=== PATIENT | female | born 1960 | race Caucasian/White ===

== ENCOUNTER 2021-04-14 13:20 | Emergency (ER) | payer MEDICAID, SELFPAY ==
[2021-04-14] VITALS (9 sets, daily range): BP systolic 117–152; BP diastolic 77–95; PULSE 74–82; RESP 16–20; TEMP 36.9; O2SAT 91–97; BMI 50.1
--- NOTE | 2021-04-14 14:09 | XRR_ITS ---
PROCEDURE INFORMATION: Exam: XR Chest Exam date and time: 04/14/2021 2:09 PM Age: 61 years old Clinical indication: Dyspnea TECHNIQUE: Imaging protocol: XR of the chest. Views: 1 view. COMPARISON: No relevant prior studies available. FINDINGS: Lungs: The lungs are hyperinflated, consistent with COPD. Mild pulmonary venous congestion demonstrated. No pulmonary infiltrates are noted. Pleural spaces: No pleural effusion or pneumothorax noted. Heart/Mediastinum: Cardiomegaly is present. Vasculature: Mild atherosclerosis of the aortic arch. Bones/joints: Mild degenerative spine changes. No acute abnormality. XR/XR chest 1V portable [id number] IMPRESSION: 1. Cardiomegaly is present. 2. The lungs are hyperinflated, consistent with COPD. 3. Mild pulmonary venous congestion demonstrated. No pulmonary infiltrates are noted.
--- NOTE | 2021-04-14 14:11 | ECG_ITS ---
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
--- NOTE | 2021-04-14 14:12 | ED_ITS ---
HPI - Wound/Laceration General: Chief Complaint: Wound/Laceration Stated Complaint: SWELLING IN RIGHT SIDE Time Seen by Provider: 04/14/21 13:54 Source: patient and family (Daughter) Mode of arrival: ambulatory Limitations: no limitations History of Present Illness: HPI narrative: Patient here for swelling and rash to right upper extremity and right breast. Patient also with complaints of shortness of breath. She states she has COPD. She does not use oxygen at home. She does smoke cigarettes. She was started on Levaquin yesterday at 500 mg tablet for suspected urinary tract infection. Family states urinalysis was not done at the clinic yesterday. No assessment of the rash was done. Patient has possible history of COPD, insomnia, tobacco use. Onset (ago): day(s) (1) Location: other (Right upper extremity including distal upper arm and entire posterior forearm.) Associated symptoms: Reports other (Shortness of breath); Denies chills, fever(s), nausea or vomiting Review of Systems Const: Denies: fever(s) or chills Eyes: Denies: change in vision ENMT: Denies: throat pain Card: Denies: chest pain or palpitations Resp: Reports: dyspnea, non-productive cough and wheezing GI: Denies: abdominal pain, nausea or vomiting : Denies: flank pain Musc: Denies: neck pain or back pain Skin/Breast: Reports: rash, erythema and other (Rash appears to be early zoster to right forearm. No rash to the breast); Denies: pruritus Neuro: Denies: headache(s) or numbness in extremities Psych: Denies: anxiety Sam/Lymph: Denies: enlarged lymph nodes Physical Exam Const: COMMON NORMALS: patient oriented x3, no limitations and well nourished GENERAL APPEARANCE: cooperative (Mild respiratory distress.) HENMT: COMMON NORMALS: normocephalic and atraumatic HEAD & SCALP: normocephalic and atraumatic FACE & SINUS: normal facial exam Eye: COMMON NORMALS: EOMs intact bilaterally Neck/C-Spine: COMMON NORMALS: full ROM, no lymphadenopathy, supple and no meningeal signs GENERAL: Yes normal visual inspection Lymph: LYMPHATIC: no lymphadenopathy noted OTHER: Palpable lymphadenopathy in the right axilla. No lymphadenopathy in the neck palpable Chest: CHEST: No Ecchymosis present and No rash Breast/axilla inspection: Yes Other (Mild soft tissue swelling of the right breast. No palpable masses.no rash) OTHER: No dimpling of the nipples. Resp: COMMON NORMALS: No retractions and clear to auscultation bilaterally EFFORT & INSPECTION: Yes respiratory distress (Mild), No grunting, No stridor and Yes audible wheezes (Bilateral wheezes consistent with bronchospasm) AUSCULTATION: clear to auscultation bilaterally Cardio: COMMON NORMALS: regular rate, regular rhythm and Peripheral pulses 2+ throughout JUGULAR VENOUS DISTENTION: no JVD RATE: regular rate RHYTHM: regular rhythm PERIPHERAL PULSES: Peripheral pulses 2+ throughout GI: COMMON NORMALS: Normal to inspection, nondistended, normoactive bowel sounds present (Morbid obesity) and non-tender : COMMON NORMALS: Yes no CVA tenderness BLADDER/KIDNEY EXAM: Yes no CVA tenderness Back/Pelvis: COMMON NORMALS: no CVA tenderness Extremity: COMMON NORMALS: normal to inspection, full ROM and capillary refill normal Neuro: COMMON NORMALS: patient oriented x3, CN's II-XII intact bilaterally, no focal motor deficits and no sensory deficits noted MENINGEAL SIGNS: Yes no meningeal signs Psych: COMMON NORMALS: mental status grossly normal and Normal thought process present THOUGHT PROCESS: Normal thought process present Skin: COMMON NORMALS: no wounds NARRATIVE SKIN EXAM: Patient has vesicular rash to right forearm consistent with zoster. Course ED course: 162: Patient reexamined. Lungs sound better but patient does have occasional expiratory wheeze. Less crackles. Oxygen saturation is 90% on 2 L by nasal cannula. Oxygen rate was increased to 3 L/min nasal cannula. Patient will receive another DuoNeb. Vital Signs: Vital signs: Vital Signs Temperature 98.5 F 04/14/21 13:29 Pulse Rate 80 04/14/21 17:13 Respiratory Rate 16 04/14/21 17:13 Blood Pressure 117/77 04/14/21 17:13 Pulse Oximetry 96 04/14/21 17:13 MDM - Wound/Laceration MDM Narrative: Medical decision making narrative: [id number]: Patient reexamined. Patient still has slight wheezing. She sounds like she does have some crackles bilaterally. Will give IV Lasix. Patient states her respiratory status is better after DuoNeb. 1636: Telemetry shows normal sinus rhythm heart rate 75, blood pressure 140s over 91, oxygen saturation 97% on 3 L/min by nasal cannula. Respiratory rate 20 breaths/min 1745: Patient feeling much better now. Patient without any respiratory distress. No tachypnea. She is still on oxygen. I recommended that she be admitted for further care of her COPD and mild congestive heart failure. Adamantly refused admission and wants to go home. She does have access to a nebulizer and home oxygen from a family member. She agrees to return if worse. She will continue the Levaquin antibiotic. Lab Data: Attestation: I reviewed the patient's lab results. Labs: Lab Results 04/14/21 04/14/21 04/14/21 Range/Units 14:43 14:43 14:43 WBC 7.1 (4.0-10.0) 10^3/ uL RBC 4.54 (4.1-5.3) 10^6/u L Hgb 12.9 (11.5-15.3) g/dL Hct 44.0 (37.0-47.0) % MCV 96.9 (81-99) fL MCH 28.4 (28.0-34.0) pg MCHC 29.3 L (30.0-36.0) g/dL RDW 17.7 H (12.1-15.1) % Plt Count 109 L (130-400) 10^3/c mm MPV 11.3 H (7.4-10.4) fL Neut % (Auto) 72.6 % Lymph % (Auto) 12.4 % [place] % (Auto) 13.6 % Eos % (Auto) 0.4 % Baso % (Auto) 0.3 % Neut # (Auto) 5.16 (1.8-7.7) 10^3/u L Lymph # (Auto) 0.9 (0.8-4.8) 10^3/u L [place] # (Auto) 1.0 H (0.2-0.9) 10^3/u L Eos # (Auto) 0.0 (0.0-0.8) 10^3/u L Baso # (Auto) 0.0 (0.0-0.1) 10^3/u L Nucleated RBC % (a uto) 0 % Nucleated RBCs # 0.0 /100WBC Sodium 137 (136-145) mmol/L Potassium 3.8 (3.5-5.1) mmol/L Chloride 93 L (98-107) mmol/L Carbon Dioxide 39 H (22-29) mmol/L Anion Gap 8.8 (5-19) BUN 26 H (8-23) mg/dL Creatinine 1.3 H (0.5-0.9) mg/dL GFR Calculation 41.5 L (90-130) mL/min Glucose 65 (65-115) mg/dL Calculated Osmolal ity 287 (285-295) mOsm/k g Lactate 1.4 (0.5-2.2) mmol/L Calcium 8.4 L (8.5-10.5) mg/dL Total Bilirubin 2.7 H (0.15-1.2) mg/dL AST 18 (0-32) U/L ALT 38 H (0-33) U/L Alkaline Phosphata se 98 (35-105) IU/L Troponin T Gen 5 n g/L (0-10) ng/L NT-Pro-B Natriuret Pep (0-125) pg/mL Total Protein 6.5 L (6.6-8.7) g/dL Albumin 3.3 L (3.5-5.2) g/dL Globulin 3.2 (1.3-4.6) g/dL Urine Color (Yellow) Urine Appearance (CLEAR) Urine pH (5-7) Ur Specific Gravit y (1.005-1.030) Urine Protein (Negative) Urine Glucose (UA) (Normal) Urine Ketones (Negative) Urine Blood (Negative) Urine Nitrate (Negative) Urine Bilirubin (Negative) Urine Urobilinogen (Negative) mg/dL Ur Leukocyte Rima ase (Negative) SARS-CoV-2 Ag (Rap id) (Negative) 04/14/21 04/14/21 04/14/21 Range/Units 14:43 14:43 14:52 WBC (4.0-10.0) 10^3/ uL RBC (4.1-5.3) 10^6/u L Hgb (11.5-15.3) g/dL Hct (37.0-47.0) % MCV (81-99) fL MCH (28.0-34.0) pg MCHC (30.0-36.0) g/dL RDW (12.1-15.1) % Plt Count (130-400) 10^3/c mm MPV (7.4-10.4) fL Neut % (Auto) % Lymph % (Auto) % [place] % (Auto) % Eos % (Auto) % Baso % (Auto) % Neut # (Auto) (1.8-7.7) 10^3/u L Lymph # (Auto) (0.8-4.8) 10^3/u L [place] # (Auto) (0.2-0.9) 10^3/u L Eos # (Auto) (0.0-0.8) 10^3/u L Baso # (Auto) (0.0-0.1) 10^3/u L Nucleated RBC % (a uto) % Nucleated RBCs # /100WBC Sodium (136-145) mmol/L Potassium (3.5-5.1) mmol/L Chloride (98-107) mmol/L Carbon Dioxide (22-29) mmol/L Anion Gap (5-19) BUN (8-23) mg/dL Creatinine (0.5-0.9) mg/dL GFR Calculation (90-130) mL/min Glucose (65-115) mg/dL Calculated Osmolal ity (285-295) mOsm/k g Lactate (0.5-2.2) mmol/L Calcium (8.5-10.5) mg/dL Total Bilirubin (0.15-1.2) mg/dL AST (0-32) U/L ALT (0-33) U/L Alkaline Phosphata se (35-105) IU/L Troponin T Gen 5 n g/L 68 H (0-10) ng/L NT-Pro-B Natriuret Pep [id number] H (0-125) pg/mL Total Protein (6.6-8.7) g/dL Albumin (3.5-5.2) g/dL Globulin (1.3-4.6) g/dL Urine Color Yellow (Yellow) Urine Appearance Clear (CLEAR) Urine pH 5 (5-7) Ur Specific Gravit y 1.010 (1.005-1.030) Urine Protein Neg (Negative) Urine Glucose (UA) Norm (Normal) Urine Ketones Negative (Negative) Urine Blood Neg (Negative) Urine Nitrate Negative (Negative) Urine Bilirubin Neg (Negative) Urine Urobilinogen 1 H (Negative) mg/dL Ur Leukocyte Rima ase Negative (Negative) SARS-CoV-2 Ag (Rap id) (Negative) 04/14/21 04/14/21 Range/Units 14:55 16:47 WBC (4.0-10.0) 10^3/ uL RBC (4.1-5.3) 10^6/u L Hgb (11.5-15.3) g/dL Hct (37.0-47.0) % MCV (81-99) fL MCH (28.0-34.0) pg MCHC (30.0-36.0) g/dL RDW (12.1-15.1) % Plt Count (130-400) 10^3/c mm MPV (7.4-10.4) fL Neut % (Auto) % Lymph % (Auto) % [place] % (Auto) % Eos % (Auto) % Baso % (Auto) % Neut # (Auto) (1.8-7.7) 10^3/u L Lymph # (Auto) (0.8-4.8) 10^3/u L [place] # (Auto) (0.2-0.9) 10^3/u L Eos # (Auto) (0.0-0.8) 10^3/u L Baso # (Auto) (0.0-0.1) 10^3/u L Nucleated RBC % (a uto) % Nucleated RBCs # /100WBC Sodium (136-145) mmol/L Potassium (3.5-5.1) mmol/L Chloride (98-107) mmol/L Carbon Dioxide (22-29) mmol/L Anion Gap (5-19) BUN (8-23) mg/dL Creatinine (0.5-0.9) mg/dL GFR Calculation (90-130) mL/min Glucose (65-115) mg/dL Calculated Osmolal ity (285-295) mOsm/k g Lactate (0.5-2.2) mmol/L Calcium (8.5-10.5) mg/dL Total Bilirubin (0.15-1.2) mg/dL AST (0-32) U/L ALT (0-33) U/L Alkaline Phosphata se (35-105) IU/L Troponin T Gen 5 n g/L 64 H (0-10) ng/L NT-Pro-B Natriuret Pep (0-125) pg/mL Total Protein (6.6-8.7) g/dL Albumin (3.5-5.2) g/dL Globulin (1.3-4.6) g/dL Urine Color (Yellow) Urine Appearance (CLEAR) Urine pH (5-7) Ur Specific Gravit y (1.005-1.030) Urine Protein (Negative) Urine Glucose (UA) (Normal) Urine Ketones (Negative) Urine Blood (Negative) Urine Nitrate (Negative) Urine Bilirubin (Negative) Urine Urobilinogen (Negative) mg/dL Ur Leukocyte Rima ase (Negative) SARS-CoV-2 Ag (Rap id) Negative (Negative) Imaging Data^: CXR: Attestation: I personally reviewed and interpreted this imaging study as follows: My impression: Portable chest x-ray shows mild atelectasis, cardiomegaly. EKG Data^: EKG 1: Attestation: I personally reviewed and interpreted this EKG as follows: EKG interpretation date: 04/14/21 EKG interpretation time: 14:46 Prior EKG tracings: not available for review Interpretation: Normal sinus rhythm with left atrial enlargement. Normal MS interval. Normal QRS. Normal QT interval, normal ST segment. Normal axis. Impression normal sinus rhythm with left atrial enlargement. Critical Care Time Critical Care Time: Critical Care Time: Yes Total Critical Care Time: 45 Attestation: See orders. IV Lasix. Respiratory and cardiac problems Discharge Plan Discharge Patient Disposition: Home Clinical Impression: Acute exacerbation of chronic obstructive pulmonary disease (COPD), Hypoxia, Pulmonary edema cardiac cause Herpes zoster Qualifiers: Herpes zoster complications: without complications Qualified Code(s): B02.9 - Zoster without complications Condition: Stable Prescriptions: New potassium chloride 10 mEq capsule, extended release 20 meq PO DAILY Qty: 6 RF: 1 acyclovir 800 mg tablet 800 mg PO QID 7 Days Qty: 28 RF: 0 No Action fluoxetine 40 mg Capsule 40 mg PO DAILY RF: 0 citalopram 40 mg Tablet 40 mg PO DAILY RF: 0 trazodone 50 mg Tablet 50 mg PO DAILY RF: 0 alprazolam 0.25 mg Tablet 0.25 mg PO DAILY RF: 0 zolpidem 5 mg Tablet 5 mg PO DAILY RF: 0 levofloxacin 500 mg Tablet 500 mg PO DAILY RF: 0 Discharge Orders: Discharge ED (Routine); Ordered 04/14/21 Ordered By: Tigre Campbell Discharge Diet: Low Salt Discharge Activity: Increase activity as tolerated Patient Instructions: Pulmonary Edema (ED), Herpes Zoster (ED), Using Oxygen at Home (ED), Chronic Obstructive Pulmonary Disease (ED) Activity Restrictions/Additional Instructions: You will need to take acyclovir 800 mg four times a day for the next week. You will need to take Lasix 40 mg twice a day for the next 3 days to help with fluid overload. Take potassium supplement 20 mEq daily while on the extra Lasix. Suggest wearing oxygen 2 L/min as needed for shortness of breath and each evening while sleeping. Follow-up with your doctor on Friday for recheck. Return immediately if symptoms worsen. May use albuterol nebulizer solution via nebulizer every 4-6 hours as needed for wheezing or shortness of breath. 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
[2021-04-14] MEDS: ipratropium-albuterol 3 mL Neb INHALATION ×2 (14:22→16:52)
[2021-04-14] MEDS: acyclovir 800 mg Tablet PO (14:37)
[2021-04-14 14:50] LABS: Basophils % 0.3 %; Eosinophils % 0.4 %; Hemoglobin 12.9 g/dL (11.5-15.3); Lymphocytes # 0.9 10^3/uL (0.8-4.8); Lymphocytes % 12.4 %; Mean Corpuscular HGB Conc 29.3 g/dL (30.0-36.0); Mean Corpuscular Hemoglobin 28.4 pg (28.0-34.0); Mean Corpuscular Volume 96.9 fL (81-99); Mean Platelet Volume 11.3 fL (7.4-10.4); Monocytes % 13.6 %; Neutrophils # 5.16 10^3/uL (1.8-7.7); Neutrophils % 72.6 %; Nucleated Red Blood Cells % 0 %; Platelet Count 109 10^3/cmm (130-400); Red Blood Count 4.54 10^6/uL (4.1-5.3); Red Cell Distribution Width 17.7 % (12.1-15.1); White Blood Count 7.1 10^3/uL (4.0-10.0)
[2021-04-14 14:58] LABS: Add Urine Microscopic? NO; Charge for UA Resulting for Rev
[2021-04-14 15:05] LABS: Bilirubin Urine Neg (Negative); Blood Urine Neg (Negative); Glucose Urine UA Norm (Normal); Ketones Urine Negative (Negative); Leukocyte Esterase Urine Negative (Negative); Nitrate Urine Negative (Negative); Protein Urine Neg (Negative); Urine Appearance Clear (CLEAR); Urine Color Yellow (Yellow); Urobilinogen Urine 1 mg/dL (Negative); pH Urine 5 (5-7)
[2021-04-14 15:09] LABS: Alanine Aminotransferase 38 U/L (0-33); Albumin Level 3.3 g/dL (3.5-5.2); Alkaline Phosphatase 98 IU/L (35-105); Anion Gap 8.8 (5-19); Aspartate Amino Transferase 18 U/L (0-32); Blood Urea Nitrogen 26 mg/dL (8-23); Calcium 8.4 mg/dL (8.5-10.5); Carbon Dioxide 39 mmol/L (22-29); Chloride 93 mmol/L (98-107); Globulin 3.2 g/dL (1.3-4.6); Glomerular Filtration Rate 41.5 mL/min (90-130); Glucose 65 mg/dL (65-115); Lactate (Lactic Acid level) 1.4 mmol/L (0.5-2.2); Osmolality Calculated 287 mOsm/kg (285-295); Potassium 3.8 mmol/L (3.5-5.1); Sodium 137 mmol/L (136-145); Total Bilirubin 2.7 mg/dL (0.15-1.2); Total Protein 6.5 g/dL (6.6-8.7)
[2021-04-14 15:17] LABS: SARS Covid-2 Antigen Negative (Negative)
[2021-04-14 15:27] LABS: Troponin T (5th) Once 68 ng/L (0-10)
[2021-04-14 15:35] LABS: NT Pro B Type Natriuretic Pept 11027 pg/mL (0-125)
[2021-04-14] MEDS: FUROsemide 10 mg/mL SDV 4mL 40 MG IVP (15:56)
[2021-04-14] MEDS: aspirin 81 mg Chew Tablet 324 MG PO (15:56)
[2021-04-14 17:30] LABS: Troponin T (5th) Once 64 ng/L (0-10)
[2021-04-14] MEDS: potassium chloride ER 20 mEq Tablet PO (18:11)
== END 2021-04-14 18:23 | disposition home or self-care (01) ==
PROVIDERS: Emergency Provider Family Medicine
DX: J44.1 Chronic obstructive pulmonary disease with (acute) exacerbation (principal); R09.02 Hypoxemia; B02.9 Zoster without complications; J81.1 Chronic pulmonary edema; Z20.822 Contact with and (suspected) exposure to COVID-19
CPT/HCPCS: 36415; 71045; 80053; 81003; 83605; 83880; 84484; 85025; 87040; 87426; 93005; 94640; 96374; 99284; J1940; J8499

== ENCOUNTER 2021-05-09 14:07 | Inpatient (IN) | payer MEDICAID, SELFPAY ==
[2021-05-09 14:37] VITALS: BP 134/82; PULSE 96; RESP 20; TEMP 37; O2SAT 97; BMI 46.3
--- NOTE | 2021-05-09 15:02 | USCV_ITS ---
BalbuenaRamonita morgan Age: 61 Gender: F : 1960 Exam Date: 05/09/2021 15:34 Ordering Phys: Angélica Back DO Technologist: Merary Duran [place] [facility] [place]ication: BLE SWELLING HISTORY: Lower extremity swelling. Lower extremity pain. PROCEDURES: Venous duplex imaging was performed in bilateral lower extremities. The following venous structures were evaluated: common femoral vein, profunda vein, proximal portion of the greater saphenous vein, superficial femoral vein, and the popliteal vein. Serial compression, augmentation maneuvers, and spectral Doppler flow evaluation were performed. FINDINGS: No evidence of DVT seen in any vessel visualized at this time. Examination was technically limited due to body habitus. CONCLUSIONS Technically limited exam due to body habitus No evidence of right lower extremity DVT. No evidence of left lower extremity DVT. Brant Salgado MD (Electronically Signed) Final Date: 09 May 2021 16:14 S
--- NOTE | 2021-05-09 15:03 | CT_ITS ---
WS: [id number] CT head wo con* [id number] REASON FOR EXAM: ams IV CONTRAST ADMINISTERED: Noncontrast TOTAL EXAM DLP: 1751.[address] scans at [facility] use at least one of these dose optimization techniques: automat ed exposure control; mA and/or kV adjustment per patient size (includes targeted exams where dose is matched to clinical indication); or iterative reconstruction. FINDINGS: No midline shift or other significant mass effect. No findings of intracranial hemorrhage and no extra-axial fluid collection noted. No acute focal brain parenchymal abnormality noted in the cerebral hemispheres, brainstem, or cerebel lar hemispheres. Normal ventricles. The base of the skull and the calvarium are normal. CT/CT head wo con* [id number] IMPRESSION: No acute intracranial abnormality.
--- NOTE | 2021-05-09 15:03 | XR_ITS ---
WS: [id number] XR chest 1V portable [id number] REASON FOR EXAM: wheezing FINDINGS: Moderate cardiomegaly. Calcified granulomatous changes in both hemithoraces. No active pulmonary parenchymal or pleural abnormality. Bony thorax is intact. XR/XR chest 1V portable [id number] IMPRESSION: Cardiomegaly with no acute abnormality.
--- NOTE | 2021-05-09 15:11 | W.ED.GENADLT ---
HPI - General Adult General: Chief complaint: General Medical Stated complaint: BLE SWELLING,SENT BY DR SOLANO-[facility] PROBLEMS Time Seen by Provider: 05/09/21 14:46 Source: patient and family Mode of arrival: wheelchair Limitations: altered mental status History of Present Illness: HPI narrative: Ramonita is a 61-year-old female who is accompanied by her daughter here to the emergency department with multiple complaints. Her daughter states she is not been taking her medications for the past several days for which she takes for heart failure. She has increased leg swelling, shortness of breath and she can hear her rattle when she breathes. She is had no fevers or chills. Patient denies any chest pain. Patient's daughter states that she is also taking too much of her Ambien and her Xanax. She states she just wants to sleep all day and has a hard time arousing her. Patient was noted to have a pulse ox in the low 80s and sometimes in the 70s in triage and had to be placed on 2 L of nasal cannula oxygen. Patient also has a history of COPD but does not apparently take any medications for this on a regular basis. Patient states any type of exertion makes her symptoms worse. She also states laying flat makes her shortness of breath worse. Patient denies any history of DVT or PE but she has bluish and reddish discolorations to both legs. Associated symptoms: Reports dyspnea and malaise; Deny chest pain, headache(s), nausea, rash, palpitations, syncope or vomiting Review of Systems Const: Reports: fatigue and malaise; Denies: fever(s) Eyes: Denies: change in vision or blurry vision ENMT: Denies: throat pain, hoarseness or swelling of lips/tongue Card: Reports: edema, swelling of feet/ankles, dyspnea on exertion and orthopnea; Denies: chest pain, palpitations, syncope or pre-syncope Resp: Reports: dyspnea and wheezing; Denies: productive cough, non-productive cough, change in phlegm color or hemoptysis GI: Denies: abdominal pain, nausea, vomiting or diarrhea : Denies: flank pain, dysuria, urinary frequency or urinary urgency Musc: Reports: extremity pain and extremity swelling; Denies: neck pain or back pain Skin/Breast: Reports: erythema, skin tenderness and skin swelling; Denies: rash or pruritus Neuro: Denies: headache(s), numbness in extremities, weakness in extremities or dizziness Psych: Reports: anxiety and depression Sam/Lymph: Reports: easy bruising; Denies: easy bleeding, petechiae or purpura All/Imm: Denies: urticaria or throat swelling Physical Exam Const: COMMON NORMALS: no acute distress, patient oriented x3, no limitations and alert GENERAL APPEARANCE: cooperative HENMT: COMMON NORMALS: normocephalic, atraumatic, external ears normal, EAC's normal and Normal external nose present HEAD & SCALP: normal to inspection, normocephalic and atraumatic FACE & SINUS: normal facial exam and face symmetric NOSE: Normal external nose present and Normal nares present EXTERNAL EAR: Yes external ears normal EXTERNAL AUDITORY CANAL: EAC's normal MOUTH: Normal oral and palatal mucosa present, lip normal and tongue normal Eye: COMMON NORMALS: Equal, round and reactive pupils present and conjunctivae normal GENERAL EYE: appearance normal, both eyes and all related structures ALIGNMENT: Yes alignment normal PERIORBITAL: periorbital findings normal EYELID: eyelids normal CONJUNCTIVA: Yes conjunctivae normal SCLERA: sclerae normal PUPIL: Yes Equal, round and reactive pupils present Neck/C-Spine: COMMON NORMALS: full ROM, no lymphadenopathy, supple, no meningeal signs and no JVD GENERAL: Yes normal visual inspection and Yes trachea midline Chest: COMMONS NORMALS: normal inspection of the chest and normal palpation of entire chest wall Resp: COMMON NORMALS: normal respiratory effort, No retractions, No use of accessory muscles and clear to auscultation bilaterally EFFORT & INSPECTION: Yes able to speak in complete sentences and Yes symmetric chest movement AUSCULTATION: clear to auscultation bilaterally, no crackles, rales, rhonchi and wheezes Cardio: COMMON NORMALS: no JVD, regular rate, regular rhythm, S1 normal heart sound present and S2 normal heart sound present RATE: regular rate RHYTHM: regular rhythm HEART SOUNDS: S1 normal heart sound present, S2 normal heart sound present, no click, no gallops, no murmurs and no rubs GI: COMMON NORMALS: Soft to palpation and No hepatosplenomegaly present PALPATION: Yes Soft to palpation, No Tenderness to palpation present (GI), No Guarding due to palpation present (GI), No Rigid due to palpation, Yes No hepatosplenomegaly present, No Hernia present, No Palpable mass present and No Pulsatile mass present : COMMON NORMALS: Yes no CVA tenderness BLADDER/KIDNEY EXAM: Yes no CVA tenderness EXTERNAL FEMALE EXAM: No Hernia present Back/Pelvis: COMMON NORMALS: no CVA tenderness, thoracic and lumbar spine normal to inspection, no thoracic nor lumbar tenderness and thoraco-lumbar ROM normal Extremity: NARRATIVE EXTREMITY EXAM: Bilateral lower extremity swelling with blister formation to the toes. Surrounding cellulitis present. Neuro: COMMON NORMALS: patient oriented x3, CN's II-XII intact bilaterally, moves all extremities, no focal motor deficits and no sensory deficits noted SENSORIUM/ORIENTATION: Yes alert MENINGEAL SIGNS: Yes no meningeal signs SPEECH: speech normal Psych: COMMON NORMALS: mental status grossly normal, Normal thought process present, cooperative, normal affect, speech normal and activity/motor behavior normal SPEECH: Yes normal speech THOUGHT PROCESS: Normal thought process present Skin: COMMON NORMALS: no rashes or lesions noted, turgor normal, no jaundice, no petechiae and no mottling GENERAL SKIN EXAM: no rashes or lesions noted and turgor normal Course Vital Signs: Vital signs: Vital Signs Temperature 98.6 F 05/09/21 14:37 Pulse Rate 96 05/09/21 14:37 Respiratory Rate 20 H 05/09/21 14:37 Blood Pressure 134/82 05/09/21 14:37 Pulse Oximetry 97 05/09/21 14:37 MDM - General Adult MDM Narrative: Medical decision making narrative: 3811 -the patient appears to be in a CHF exacerbation. She has been noncompliant with her medications specifically her Lasix and potassium. She has abused or is taking her Xanax and Ambien inappropriately. I believe the patient is going to need some counseling, but more so she will need IV diuresis. She has skin changes that are going to cause problems if we do not pull some of this fluid off. I am giving her her dose of daily Lasix IV. We will place Agrawal catheter to monitor close urine output. I have endorsed the case to Dr. Johnson and she agrees to admit the patient for further evaluation and care. A Covid test is pending at this time but I do not expect it to be positive. If it is positive we will make the appropriate adjustments and placement. Lab Data: Attestation: I reviewed the patient's lab results. Labs: Lab Results 05/09/21 05/09/21 05/09/21 Range/Units 16:00 16:00 16:00 WBC 6.7 (4.0-10.0) 10^3/ uL RBC 4.30 (4.1-5.3) 10^6/u L Hgb 12.9 (11.5-15.3) g/dL Hct 43.3 (37.0-47.0) % MCV 100.7 H (81-99) fL MCH 30.0 (28.0-34.0) pg MCHC 29.8 L (30.0-36.0) g/dL RDW 22.7 H (12.1-15.1) % Plt Count 77 L (130-400) 10^3/c mm MPV Not Reportable Neut % (Auto) 73.2 % Lymph % (Auto) 12.3 % [place] % (Auto) 13.2 % Eos % (Auto) 0.6 % Baso % (Auto) 0.3 % Neut # (Auto) 4.93 (1.8-7.7) 10^3/u L Lymph # (Auto) 0.8 (0.8-4.8) 10^3/u L [place] # (Auto) 0.9 (0.2-0.9) 10^3/u L Eos # (Auto) 0.0 (0.0-0.8) 10^3/u L Baso # (Auto) 0.0 (0.0-0.1) 10^3/u L Nucleated RBC % (a uto) 0 % Nucleated RBCs # 0.0 /100WBC PT 15.10 H (12.1-14.9) SECO NDS INR 1.16 (0.8-1.2) Specimen Type Sample Site ABG pH (7.35-7.45) ABG pCO2 (35-45) mmHg ABG pO2 (80.0-100.0) mmH g ABG HCO3 (22-26) mmol/L ABG O2 Saturation ABG Base Excess (-2.0-2.0) mmol/ L Ismael Test A-a O2 Gradient (5-10) mmHg Hematocrit (37-47) % Hgb O2 Saturation (95-100) % Carboxyhemoglobin (0.4-20.1) %THgb Methemoglobin (0.4-1.5) % Total Hemoglobin (12-16) g/dL Ionized Calcium (1.1-1.4) mmol/L O2 Delivery Device O2 Liters/Min % FiO2 % [facility] Executive Director ID Sodium 137 (136-145) mmol/L Potassium 3.5 (3.5-5.1) mmol/L Chloride 92 L (98-107) mmol/L Carbon Dioxide 37 H (22-29) mmol/L Anion Gap 11.5 (5-19) BUN 28 H (8-23) mg/dL Creatinine 1.1 H (0.5-0.9) mg/dL GFR Calculation 50.3 L (90-130) mL/min Glucose 86 (65-115) mg/dL Calculated Osmolal ity 289 (285-295) mOsm/k g Lactic Acid Calcium 8.2 L (8.5-10.5) mg/dL Magnesium 1.8 (1.7-2.3) mg/dL Total Bilirubin 2.9 H (0.15-1.2) mg/dL AST 17 (0-32) U/L ALT 11 (0-33) U/L Alkaline Phosphata se 95 (35-105) IU/L Creatine Kinase 33 (26-192) U/L Troponin T Baselin e (0-10) ng/L NT-Pro-B Natriuret Pep 60274 H (0-125) pg/mL Total Protein 5.5 L (6.6-8.7) g/dL Albumin 3.2 L (3.5-5.2) g/dL Globulin 2.3 (1.3-4.6) g/dL Lipase 31 (13-60) U/L TSH 4.38 H (0.27-4.20) uIU/ mL Free T4 1.33 (0.82-1.77) ng/d L Serum Ketones (Negative) 05/09/21 05/09/21 05/09/21 Range/Units 16:00 16:00 16:00 WBC (4.0-10.0) 10^3/ uL RBC (4.1-5.3) 10^6/u L Hgb (11.5-15.3) g/dL Hct (37.0-47.0) % MCV (81-99) fL MCH (28.0-34.0) pg MCHC (30.0-36.0) g/dL RDW (12.1-15.1) % Plt Count (130-400) 10^3/c mm MPV Neut % (Auto) % Lymph % (Auto) % [place] % (Auto) % Eos % (Auto) % Baso % (Auto) % Neut # (Auto) (1.8-7.7) 10^3/u L Lymph # (Auto) (0.8-4.8) 10^3/u L [place] # (Auto) (0.2-0.9) 10^3/u L Eos # (Auto) (0.0-0.8) 10^3/u L Baso # (Auto) (0.0-0.1) 10^3/u L Nucleated RBC % (a uto) % Nucleated RBCs # /100WBC PT (12.1-14.9) SECO NDS INR (0.8-1.2) Specimen Type Sample Site ABG pH (7.35-7.45) ABG pCO2 (35-45) mmHg ABG pO2 (80.0-100.0) mmH g ABG HCO3 (22-26) mmol/L ABG O2 Saturation ABG Base Excess (-2.0-2.0) mmol/ L Ismael Test A-a O2 Gradient (5-10) mmHg Hematocrit (37-47) % Hgb O2 Saturation (95-100) % Carboxyhemoglobin (0.4-20.1) %THgb Methemoglobin (0.4-1.5) % Total Hemoglobin (12-16) g/dL Ionized Calcium (1.1-1.4) mmol/L O2 Delivery Device O2 Liters/Min % FiO2 % [facility] Executive Director ID Sodium (136-145) mmol/L Potassium (3.5-5.1) mmol/L Chloride (98-107) mmol/L Carbon Dioxide (22-29) mmol/L Anion Gap (5-19) BUN (8-23) mg/dL Creatinine (0.5-0.9) mg/dL GFR Calculation (90-130) mL/min Glucose (65-115) mg/dL Calculated Osmolal ity (285-295) mOsm/k g Lactic Acid Cancelled Calcium (8.5-10.5) mg/dL Magnesium (1.7-2.3) mg/dL Total Bilirubin (0.15-1.2) mg/dL AST (0-32) U/L ALT (0-33) U/L Alkaline Phosphata se (35-105) IU/L Creatine Kinase (26-192) U/L Troponin T Baselin e 77 H (0-10) ng/L NT-Pro-B Natriuret Pep (0-125) pg/mL Total Protein (6.6-8.7) g/dL Albumin (3.5-5.2) g/dL Globulin (1.3-4.6) g/dL Lipase (13-60) U/L TSH (0.27-4.20) uIU/ mL Free T4 (0.82-1.77) ng/d L Serum Ketones Negative (Negative) 05/09/21 Range/Units 16:12 WBC (4.0-10.0) 10^3/ uL RBC (4.1-5.3) 10^6/u L Hgb (11.5-15.3) g/dL Hct (37.0-47.0) % MCV (81-99) fL MCH (28.0-34.0) pg MCHC (30.0-36.0) g/dL RDW (12.1-15.1) % Plt Count (130-400) 10^3/c mm MPV Neut % (Auto) % Lymph % (Auto) % [place] % (Auto) % Eos % (Auto) % Baso % (Auto) % Neut # (Auto) (1.8-7.7) 10^3/u L Lymph # (Auto) (0.8-4.8) 10^3/u L [place] # (Auto) (0.2-0.9) 10^3/u L Eos # (Auto) (0.0-0.8) 10^3/u L Baso # (Auto) (0.0-0.1) 10^3/u L Nucleated RBC % (a uto) % Nucleated RBCs # /100WBC PT (12.1-14.9) SECO NDS INR (0.8-1.2) Specimen Type Arterial Sample Site Radial, left ABG pH 7.41 (7.35-7.45) ABG pCO2 68.8 H* (35-45) mmHg ABG pO2 108.0 H (80.0-100.0) mmH g ABG HCO3 43.6 H (22-26) mmol/L ABG O2 Saturation 99.0 ABG Base Excess 15.6 H (-2.0-2.0) mmol/ L Ismael Test Pos A-a O2 Gradient 4.7 L (5-10) mmHg Hematocrit 40.0 (37-47) % Hgb O2 Saturation 91.2 L (95-100) % Carboxyhemoglobin 7.2 (0.4-20.1) %THgb Methemoglobin 0.7 (0.4-1.5) % Total Hemoglobin 13.0 (12-16) g/dL Ionized Calcium 1.2 (1.1-1.4) mmol/L O2 Delivery Device Nc O2 Liters/Min 3.0 % FiO2 32.0 % [facility] Executive Director ID Gd Sodium 137.0 (136-145) mmol/L Potassium 3.1 L (3.5-5.1) mmol/L Chloride (98-107) mmol/L Carbon Dioxide (22-29) mmol/L Anion Gap (5-19) BUN (8-23) mg/dL Creatinine (0.5-0.9) mg/dL GFR Calculation (90-130) mL/min Glucose 97.0 (65-115) mg/dL Calculated Osmolal ity (285-295) mOsm/k g Lactic Acid Calcium (8.5-10.5) mg/dL Magnesium (1.7-2.3) mg/dL Total Bilirubin (0.15-1.2) mg/dL AST (0-32) U/L ALT (0-33) U/L Alkaline Phosphata se (35-105) IU/L Creatine Kinase (26-192) U/L Troponin T Baselin e (0-10) ng/L NT-Pro-B Natriuret Pep (0-125) pg/mL Total Protein (6.6-8.7) g/dL Albumin (3.5-5.2) g/dL Globulin (1.3-4.6) g/dL Lipase (13-60) U/L TSH (0.27-4.20) uIU/ mL Free T4 (0.82-1.77) ng/d L Serum Ketones (Negative) Imaging Data^: CT Head: Radiologist's impression: [address] [address] [address] Scan Report Signed Patient: Ramonita Balbuena Unit #: [id number] : 1960 Age/Sex: 61 / F ADM Date: 05/09/21 Loc: ER Room/Bed: Attending Dr: Ordering Provider/Ordering MD: Angélica Back DO Date of Service: 05/09/21 Procedure(s): CT head wo con* 15631 Accession Number(s): [id number] Report Number: [id number] WS: [id number] CT head wo con* [id number] REASON FOR EXAM: ams IV CONTRAST ADMINISTERED: Noncontrast TOTAL EXAM DLP: 1751.[address] scans at [facility] use at least one of these dose optimization techniques: automated exposure control; mA and/or kV adjustment per patient size (includes targeted exams where dose is matched to clinical indication); or iterative reconstruction. FINDINGS: No midline shift or other significant mass effect. No findings of intracranial hemorrhage and no extra-axial fluid collection noted. No acute focal brain parenchymal abnormality noted in the cerebral hemispheres, brainstem, or cerebellar hemispheres. Normal ventricles. The base of the skull and the calvarium are normal. CT/CT head wo con* [id number] IMPRESSION: No acute intracranial abnormality. Dictated By: Bhanu Guardado Jr, MD Signed By: Bhanu Guardado Jr, MD Signed Date/Time: 05/09/21 1613 DD/ 1557 CXR: Radiologist's impression: [facility] [address] [address] XRay Report Signed Patient: Ramonita Balbuena Unit #: [id number] : 1960 Age/Sex: 61 / F ADM Date: 05/09/21 Loc: ER Room/Bed: Attending Dr: Ordering Provider/Ordering MD: Angélica Back DO Date of Service: 05/09/21 Procedure(s): XR chest 1V portable 24467 Accession Number(s): [id number] Report Number: [id number] WS: [id number] XR chest 1V portable [id number] REASON FOR EXAM: wheezing FINDINGS: Moderate cardiomegaly. Calcified granulomatous changes in both hemithoraces. No active pulmonary parenchymal or pleural abnormality. Bony thorax is intact. XR/XR chest 1V portable 22429 IMPRESSION: Cardiomegaly with no acute abnormality. Dictated By: Bhanu Guardado Jr, MD Signed By: Bhanu Guardado Jr, MD Signed Date/Time: 05/09/211556 DD/ 55 Ultrasound Bilateral Extremity Venous Doppler: Radiologist's impression: [facility] [address] [address]Enzjezbhxa ReportSigned Patient: Ramonita Balbuena AUnit #: [id number]: 1960cct#:[id number]/Sex: 61 / FADM Date: 05/09/21Loc: ERRoom/Bed:Attending Dr: Ordering Provider/Ordering MD: Angélica Back DO Date of Service: 05/09/21 Procedure(s): [place] [address] Accession Number(s): [id number] Report Number: [id number] Ramonita Balbuena Age: 61 Gender: F : 1960 Exam Date: 05/09/2021 15:34 Ordering Phys: Angélica Back DO Technologist: Merary Duran [place] [facility] [place]: BLE SWELLING HISTORY: Lower extremity swelling. Lower extremity pain. PROCEDURES: Venous duplex imaging was performed in bilateral lower extremities. The following venous structures were evaluated: common femoral vein, profunda vein, proximal portion of the greater saphenous vein, superficial femoral vein, and the popliteal vein. Serial compression, augmentation maneuvers, and spectral Doppler flow evaluation were performed. FINDINGS: No evidence of DVT seen in any vessel visualized at this time. Examination was technically limited due to body habitus. CONCLUSIONS Technically limited exam due to body habitus No evidence of right lower extremity DVT. No evidence of left lower extremity DVT. Brant Salgado MD (Electronically Signed) Final Date: 09 May 2021 16:14 S EKG Data^: EKG 1: Attestation: I personally reviewed and interpreted this EKG as follows: Interpretation: 1423 -normal sinus rhythm at 68 beats a minute, no blocks, normal intervals, no acute ST-T wave changes Computer generated interpretation: Chest X-Ray 05/09/21 15:03 IMPRESSION: Cardiomegaly with no acute abnormality. Head CT 05/09/21 15:03 IMPRESSION: No acute intracranial abnormality. Discharge Plan Discharge Patient Disposition: Admitted As Inpatient Clinical Impression: Congestive heart failure Condition: Stable Prescriptions: No Action citalopram 40 mg Tablet 40 mg PO DAILY MDD see pharmacy comment RF: 0 potassium chloride 10 mEq capsule, extended release 20 meq PO DAILY Qty: 6 RF: 1 Lasix 40 mg Tablet 60 mg PO DAILY MDD see pharmacy comment RF: 0 alprazolam 0.5 mg Tablet 0.25 - 0.5 mg PO BID PRN (Reason: Anxiety) RF: 0 Ambien CR 12.5 mg Tablet,Ext Release Multiphase 12.5 mg PO BEDTIME RF: 0 Referrals: Rafa Quintero MD [Primary Care Provider] - Coding Level of Care Code ED Ultrasound Spec for Chg Fwd Exam Comprehensive
[2021-05-09 16:16] LABS: Basophils % 0.3 %; Eosinophils % 0.6 %; Hematocrit 43.3 % (37.0-47.0); Hemoglobin 12.9 g/dL (11.5-15.3); Lymphocytes # 0.8 10^3/uL (0.8-4.8); Lymphocytes % 12.3 %; Mean Corpuscular HGB Conc 29.8 g/dL (30.0-36.0); Mean Corpuscular Volume 100.7 fL (81-99); Monocytes # 0.9 10^3/uL (0.2-0.9); Monocytes % 13.2 %; Neutrophils # 4.93 10^3/uL (1.8-7.7); Neutrophils % 73.2 %; Nucleated Red Blood Cells % 0 %; Platelet Count 77 10^3/cmm (130-400); Positive C 1; Positive M 1; Red Cell Distribution Width 22.7 % (12.1-15.1); White Blood Count 6.7 10^3/uL (4.0-10.0)
[2021-05-09] MEDS: piperacillin-tazobactam 3.375 GM in sodium chloride 0.9% (plus) 50 ML IV (16:21)
[2021-05-09 16:29] LABS: ABG PCO2 68.8 mmHg (35-45); ABG PH Result 7.41 (7.35-7.45); Alveolar-Arterial Oxygen Gradi 4.7 mmHg (5-10); Base Excess ABG 15.6 mmol/L (-2.0-2.0); Blood Gas Allen Test Pos; Blood Gas Operator Identificat GD; Blood Gas Sample Site Radial, left; Blood Gas Sample Type Arterial; Carboxyhemoglobin 7.2 %THgb (0.4-20.1); HCO3 ABG 43.6 mmol/L (22-26); HGB O2 Sat 91.2 % (95-100); Ionized Calcium Level - ABG 1.2 mmol/L (1.1-1.4); Methemoglobin 0.7 % (0.4-1.5); Oxygen Device NC; Potassium Level - ABG 3.1 mmol/L (3.5-5.0)
[2021-05-09 16:41] LABS: INR 1.16 (0.8-1.2)
[2021-05-09 16:54] LABS: Ketone (Acetest) Serum Negative (Negative)
[2021-05-09 16:57] LABS: Troponin(5th) Baseline 77 ng/L (0-10)
[2021-05-09 17:10] LABS: Alanine Aminotransferase 11 U/L (0-33); Albumin Level 3.2 g/dL (3.5-5.2); Alkaline Phosphatase 95 IU/L (35-105); Aspartate Amino Transferase 17 U/L (0-32); Blood Urea Nitrogen 28 mg/dL (8-23); Calcium 8.2 mg/dL (8.5-10.5); Carbon Dioxide 37 mmol/L (22-29); Chloride 92 mmol/L (98-107); Creatine Phosphokinase 33 U/L (26-192); Free T4 Free Thyroxine 1.33 ng/dL (0.82-1.77); Globulin 2.3 g/dL (1.3-4.6); Glomerular Filtration Rate 50.3 mL/min (90-130); Glucose 86 mg/dL (65-115); Lipase 31 U/L (13-60); Magnesium 1.8 mg/dL (1.7-2.3); NT Pro B Type Natriuretic Pept 13095 pg/mL (0-125); Osmolality Calculated 289 mOsm/kg (285-295); Sodium 137 mmol/L (136-145); Thyroid Stimulating Hormone 4.38 uIU/mL (0.27-4.20); Total Bilirubin 2.9 mg/dL (0.15-1.2); Total Protein 5.5 g/dL (6.6-8.7)
[2021-05-09 17:17] VITALS: BP 111/81; PULSE 78; RESP 20; O2SAT 100
[2021-05-09 17:23] LABS: Anion Gap 11.5 (5-19); Potassium 3.5 mmol/L (3.5-5.1)
[2021-05-09 18:10] LABS: Urine Color Amber (Yellow)
[2021-05-09 18:11] LABS: Add Urine Culture? Yes; Bacteria Urine 3+ /hpf; Bilirubin Urine 1+ (Negative); Blood Urine Neg (Negative); Glucose Urine UA Norm (Normal); Ketones Urine Negative (Negative); Leukocyte Esterase Urine Trace (Negative); Nitrate Urine Positive (Negative); Protein Urine 1+ (Negative); Specific Gravity, Urine 1.015 (1.005-1.030); Squamous Epithelial Cell Urine 0-4 /hpf (0-5); Urine Appearance Clear (CLEAR); Urobilinogen Urine 4 mg/dL (Negative); WBC Urine 0-4 /hpf (0-5); pH Urine 5 (5-7)
[2021-05-09 18:15] LABS: Amphetamines Screen Urine Negative (Negative); Barbiturates Screen Urine Negative (Negative); Benzodiazepines Screen Urine Positive (Negative); Cocaine Screen Urine Negative (Negative); Opiate Screen Urine Negative (Negative); PCP Screen Urine Negative (Negative); THC Screen Urine Negative (Negative)
[2021-05-09] MEDS: FUROsemide 10 mg/mL SDV 10mL 60 MG IVP (18:26)
--- NOTE | 2021-05-09 18:30 | P.HP_ITS ---
Providers/Chief Complaint Primary Care Provider: Rafa Quintero MD Chief Complaint: BLE SWELLING,SENT BY DR [facility] PROBLEMS History of Present Illness Ramonita Balbuena is a 61 year old female with known heart failure that takes Las ix 60 mg daily decided to stop taking Lasix because she had to pee too much . She said her life is being affected not being able to leave the house and she wanted to participate in life. She denies any shortness of breath or nausea she says she is never hungry always feels full. She also carries a diagnosis of COPD she continues to smoke she does not wear oxygen at home. She would not give me an exact timeframe of when she stopped the Lasix. It spread getting worse to the point where her ambulatory status was affected. Review of Systems Const: Denies: fever(s) or chills Eyes: Denies: change in vision ENMT: Denies: throat pain or nasal congestion Card: Denies: chest pain or palpitations Resp: Denies: dyspnea or productive cough GI: Reports: other (fullness) : Denies: dysuria Musc: Reports: extremity pain and extremity swelling Skin/Breast: Denies: rash or lesions Neuro: Denies: headache(s) or dizziness Psych: Denies: anxiety or depression Sam/Lymph: Denies: easy bruising or easy bleeding Medications/Allergies Home Medications Medication Instructions Recorded Confirmed Last Taken Type citalopram 40 mg PO DAILY MDD see pharmacy 04/14/21 05/09/21 04/14/21 History comment potassium chloride 20 meq PO DAILY #6 cap 04/14/21 05/09/21 05/04/21 Rx alprazolam 0.25 - 0.5 mg PO BID PRN 05/09/21 05/09/21 05/08/21 History furosemide [Lasix] 60 mg PO DAILY MDD see pharmacy 05/09/21 05/09/21 05/04/21 History comment zolpidem [Ambien CR] 12.5 mg PO BEDTIME 05/09/21 05/09/21 05/08/21 History Allergies Allergy/AdvReac Type Severity Reaction Status Date / Time No Known Allergies Allergy Verified 04/14/21 13:37 Vitals/I&O/Wt Last Vital Signs Temp 98.6 F 05/09/21 14:37 Pulse 78 05/09/21 17:17 Resp 20 H 05/09/21 17:17 BP 111/81 05/09/21 17:17 Pulse Ox 100 05/09/21 17:17 Weight last 48 hrs Weight 136.078 kg Physical Exam Narrative: EXAM NARRATIVE: 61-year-old morbidly obese white female based on BMI however a significant amount of her weight is due to fluid overload. She appears uncomfortable in bed yet no acute distress. Alert and oriented to person place time and situation. H ENT :head is normocephalic atraumatic pupils are equal round and reactive to light and accommodate combination extra months extraocular muscles are intact there is no scleral icterus neck is supple no JVD carotid bruits or lymphadenopathy chest rises symmetrically with inspiration inspection of the chest is normal lungs severely diminished breath sounds with wheezes inspiratory and expiratory throughout. Abdomen morbidly obese soft nontender nondistended positive bowel sounds extremities severe anasarca. The bilateral lower extremities have the typical venous stasis changes along with weepy skin due to the fluid overload Data : 05/09/21 16:00 05/09/21 16:00 Micro: Microbiology 05/09/21 16:08 Blood Culture - Preliminary Blood SPECIMEN COLLECTED 05/09/21 16:00 Blood Culture - Preliminary Blood SPECIMEN COLLECTED A&P Assessment and plan (1) Congestive heart failure: due to non adherence of medications. pt was on lasix 60 mg daily. Will rx 80 mg IVP q12. no b malorie for now. magno-i k supplementation as needs. Status: Acute Qualifiers: Heart failure chronicity: acute on chronic Heart failure type: unspecified Qualified Code(s): I50.9 - Heart failure, unspecified (2) Anasarca: albumin is 3.2. may require albumin infusions to assist with fluid removal. Status: Acute (3) Volume overload state of heart: as above Status: Acute (4) Obesity: will follow Status: Acute (5) Hypertension: Status: Acute (6) COPD (chronic obstructive pulmonary disease): pt with signiciant wheezes. Will order nebs. Status: Acute Attestations Medical Necessity Statement*: pt with severe anasarca and requires IV therapy to improved. Pt will need > 2 MN to improve. Coding Level of Care Code Acute [employer] for [facility] Diagnoses Congestive heart failure I50.9 Heart failure chronicity: acute on chronic Heart failure type: unspecified Anasarca R60.1 Volume overload state of heart E87.79 Obesity E66.9 Hypertension I10 COPD (chronic obstructive pulmonary disease) J44.9
[2021-05-09 18:39] LABS: SARS Covid-2 Antigen Negative (Negative)
--- NOTE | 2021-05-09 19:32 | PC.NURSE ---
191 Report from JASE Brand
[2021-05-09 19:37] LABS: Troponin 5 2HR 70.77 ng/L (0-10)
--- NOTE | 2021-05-09 21:03 | PC.NURSE ---
Pt resting, eyes closed; easily awakened. Lights turned down for comfort at pt's request. No further needs identified at this time.
[2021-05-09 21:05] VITALS: BP 107/69; PULSE 80; RESP 20; O2SAT 99
--- NOTE | 2021-05-09 21:32 | PC.NURSE ---
Given sandwich and snacks.
[2021-05-09 22:36] LABS: Troponin 5 6HR 67.01 ng/L (0-10)
[2021-05-10] VITALS (11 sets, daily range): BP systolic 103–131; BP diastolic 66–82; PULSE 74–98; RESP 16–18; TEMP 36.7; O2SAT 96–100
[2021-05-10] MEDS: enoxaparin 40 mg/0.4 mL Syringe SUBCUT (00:18)
[2021-05-10] MEDS: potassium chloride ER 20 mEq Tablet 40 MEQ PO ×2 (00:19→10:54)
[2021-05-10] MEDS: nicotine 14 mg Patch 1 PATCH TRANSDERMA (04:04)
[2021-05-10] MEDS: zolpidem 5 mg Tablet 10 MG PO (04:39)
--- NOTE | 2021-05-10 04:39 | PC.NURSE ---
Pt resting, watching tv. VSS. Given a sandwich and snacks. No other needs identified.
[2021-05-10 08:27] LABS: Hematocrit 45.2 % (37.0-47.0); Hemoglobin 13.5 g/dL (11.5-15.3); Lymphocytes # 0.4 10^3/uL (0.8-4.8); Lymphocytes % 8.1 %; Mean Corpuscular HGB Conc 29.9 g/dL (30.0-36.0); Mean Corpuscular Hemoglobin 29.9 pg (28.0-34.0); Mean Corpuscular Volume 100.2 fL (81-99); Monocytes # 0.1 10^3/uL (0.2-0.9); Monocytes % 2.8 %; Neutrophils # 3.82 10^3/uL (1.8-7.7); Neutrophils % 88.2 %; Nucleated Red Blood Cells % 0 %; Platelet Count 101 10^3/cmm (130-400); Red Blood Count 4.51 10^6/uL (4.1-5.3); Red Cell Distribution Width 22.1 % (12.1-15.1); White Blood Count 4.3 10^3/uL (4.0-10.0)
[2021-05-10 09:01] LABS: Chol HDL Ratio 3.09 mg/dL (0.0-4.40); Cholesterol 108 mg/dL (0-200); HDL Cholesterol 35 mg/dL (60-100); LDL Cholesterol Calculated 59 mg/dL (50-129); LDL HDL Ratio 1.69 RATIO (0.00-3.22); Triglycerides 69 mg/dL (0-150)
[2021-05-10 09:11] LABS: Mean Platelet Volume 11.4 fL (7.4-10.4); Slide Review Slide Review Perform
[2021-05-10 10:35] LABS: Anion Gap 9.8 (5-19); Blood Urea Nitrogen 30 mg/dL (8-23); Calcium 8.6 mg/dL (8.5-10.5); Chloride 91 mmol/L (98-107); Glomerular Filtration Rate 50.3 mL/min (90-130); Glucose 123 mg/dL (65-115); Magnesium 1.8 mg/dL (1.7-2.3); Osmolality Calculated 294 mOsm/kg (285-295); Potassium 3.8 mmol/L (3.5-5.1); Sodium 138 mmol/L (136-145); Thyroid Stimulating Hormone 1.28 uIU/mL (0.27-4.20)
[2021-05-10 10:54] LABS: Carbon Dioxide 41 mmol/L (22-29)
[2021-05-10] MEDS: citalopram 20 mg Tablet 40 MG PO (10:54)
[2021-05-10] MEDS: docusate sodium 100 mg Capsule PO (10:54)
--- NOTE | 2021-05-10 11:04 | USCV_ITS ---
Ramonita Balbuena Age: 61 Gender: F : 1960 Exam Date: 05/10/2021 12:59 Ordering Phys: Jayden Johnson DO Technologist: Kyree Bhandari Exam Location: [facility] – [place] Indication: SOB BP: 110 / 71 HR: 87 Rhythm: Sinus Technical Quality: Adequate MEASUREMENTS (Male / Female) Normal Values 2D ECHO LV Diastolic Diameter PLAX 4.4 cm 4.2 - 5.9 / 3.9 - 5.3 cm LV Systolic Diameter PLAX 2.6 cm IVS Diastolic Thickness 0.9 cm 0.6 - 1.0 / 0.6 - 0.9 cm IVS Systolic Thickness 1.5 cm LVPW Diastolic Thickness 0.9 cm 0.6 - 1.0 / 0.6 - 0.9 cm LVPW Systolic Thickness 1.6 cm LVOT Diameter 2.1 cm LV Ejection Fraction 2D Teich 71.8 % LV Ejection Fraction MOD 2C 51.1 % LV Ejection Fraction 2C AL 53.3 % LA Diameter 3.2 cm M-MODE Aortic Annulus Diameter 4.0 cm LA Ao Ratio MM 0.9 DOPPLER AV Peak Velocity 141.0 cm/s LVOT Peak Velocity 105.0 cm/s AV Area Cont Eq vti 2.6 cm squared AV Area Cont Eq pk 2.5 cm squared MV Area PHT 5.0 cm squared Mitral E to A Ratio 0.9 MV E' Velocity 51.5 cm/s Mitral E to MV E' Ratio 11.7 Mitral E to LV E' Lateral Ratio 12.1 Mitral E to LV E' Septal Ratio 11.4 TR Peak Velocity 140.7 cm/s TR Peak Gradient 7.9 mmHg Right Atrial Pressure 3.0 mmHg Pulmonary Artery Systolic Pressu 10.9 mmHg FINDINGS Left Ventricle Normal left ventricular size, systolic function and wall thickness, with no regional wall motion abnormalities. Left ventricular ejection fraction is estimated at 65 %. Normal diastolic function. Right Ventricle Normal right ventricular size and systolic function. RVSP could not be calculated due to incomplete tricuspid regurgitation velocity profile. Right Atrium Right atrium not well visualized. Left Atrium Left atrium not well visualized. Probably normal left atrial size. Mitral Valve Moderately thickened mitral valve. No mitral valve stenosis. No significant mitral valve regurgitation. Aortic Valve Aortic valve not well visualized. No aortic valve stenosis. No aortic valve regurgitation. Tricuspid Valve Tricuspid valve not well visualized. Pulmonic Valve Pulmonic valve not well visualized. Pericardium No pericardial effusion. Aorta Normal size aortic root and proximal ascending aorta. CONCLUSIONS 1. This is a technically very difficult study. Ultrasound enhancing agent Optison was used per protocol. 2. Normal left ventricular size, systolic function and wall thickness, with no regional wall motion abnormalities. Left ventricular ejection fraction is estimated at 65 %. Normal diastolic function. 3. Normal right ventricular size and systolic function. 4. No significant valvular abnormality. 5. No prior similar studies to compare. Marissa Vidal MD (Electronically Signed) Final Date: 10 May 2021 17:55 S
[2021-05-10] MEDS: perflutren protein-a microsphr 0.22 mg/mL SDV 3 mL IV (13:28)
--- NOTE | 2021-05-10 14:21 | PM.PN ---
Subjective Subjective: Interval history: sleeping. Given ambien in playground director. feels better. Medications: Reviewed: Yes Vitals/I&O/Wt Last Vital Signs Temp 98.6 F 05/09/21 14:37 Pulse 81 05/10/21 06:04 Resp 16 05/10/21 06:04 BP 110/71 05/10/21 06:04 Pulse Ox 98 05/10/21 06:04 05/09/21 05/10/21 05/10/21 22:59 06:59 14:59 Output Total 1900 / 1900 Balance -1900 / -1900 Weight last 48 hrs Weight 136.078 kg Physical Exam Narrative: EXAM NARRATIVE: sleepy. NAD. morbidly obese H: reg nl S1 and S2 no loud murmur L: diminshed throughout with inspiratory and expiratory wheezes A: obese soft slight tenderness below umbilicus non distended E: Still with anasarca however I see some improvment Data : 05/10/21 07:55 05/10/21 09:59 Micro: Microbiology 05/09/21 16:08 Blood Culture - Preliminary Blood SPECIMEN COLLECTED 05/09/21 16:00 Blood Culture - Preliminary Blood SPECIMEN COLLECTED A&P Assessment and plan (1) Volume overload state of heart: Continue lasix q12. supplement with K as needed. Status: Acute (2) Anasarca: as above PT for extremity wraps if possible Status: Acute (3) Obesity: Status: Acute (4) Hypertension: Acutally not on anything at home. Will follow and ensure can tolerate magno-i and possibly b malorie. Status: Acute (5) Congestive heart failure: ASA will add low dose magno-i check echo Status: Acute Qualifiers: Heart failure chronicity: acute on chronic Heart failure type: unspecified Qualified Code(s): I50.9 - Heart failure, unspecified (6) COPD (chronic obstructive pulmonary disease): inhalers mostly need to stop smoking which she does not wish to do. Status: Acute Attestations Medical Necessity Statement*: Severe anasarca requiring IV diuresis and close management to avoid life threatening condition. Coding Level of Care Code Acute Suction Worker for Esther Carey Diagnoses Volume overload state of heart E87.79 Anasarca R60.1 Obesity E66.9 Hypertension I10 Congestive heart failure I50.9 Heart failure chronicity: acute on chronic Heart failure type: unspecified COPD (chronic obstructive pulmonary disease) J44.9
--- NOTE | 2021-05-10 15:57 | PC.NURSE ---
PT AMBULATED WITH PAINTER HAND. PT DID WELL, MILD UNSTEADINESS BUT PT IS ONE ASSIST STANDBY APPROPRIATE.
--- NOTE | 2021-05-10 19:09 | PC.NURSE ---
Report from JASE Wilkinson
[2021-05-10] MEDS: FUROsemide 10 mg/mL SDV 10mL 60 MG IVP (19:46)
[2021-05-10] MEDS: zolpidem 5 mg Tablet PO (22:27)
[2021-05-11] VITALS (11 sets, daily range): BP systolic 102–144; BP diastolic 63–83; PULSE 76–90; RESP 16–20; TEMP 36.5–37.6; O2SAT 90–96
[2021-05-11 03:56] LABS: Anion Gap 6.6 (5-19); Blood Urea Nitrogen 33 mg/dL (8-23); Calcium 8.4 mg/dL (8.5-10.5); Chloride 93 mmol/L (98-107); Glomerular Filtration Rate 50.3 mL/min (90-130); Glucose 119 mg/dL (65-115); Magnesium 1.7 mg/dL (1.7-2.3); Osmolality Calculated 298 mOsm/kg (285-295); Potassium 3.6 mmol/L (3.5-5.1); Sodium 140 mmol/L (136-145)
[2021-05-11 04:14] LABS: Carbon Dioxide 44 mmol/L (22-29)
[2021-05-11] MEDS: FUROsemide 10 mg/mL SDV 10mL 60 MG IVP ×2 (08:38→19:45)
[2021-05-11] MEDS: citalopram 20 mg Tablet 40 MG PO (09:01)
[2021-05-11] MEDS: docusate sodium 100 mg Capsule PO ×2 (09:02→17:40)
[2021-05-11] MEDS: nicotine 14 mg Patch 1 PATCH TRANSDERMA (09:02)
[2021-05-11] MEDS: potassium chloride ER 20 mEq Tablet 40 MEQ PO (09:04)
--- NOTE | 2021-05-11 10:25 | PC.RESP ---
Smoking Cessation and Pulmonary Rehab information sent to patient.
--- NOTE | 2021-05-11 11:25 | P.PN_ITS ---
Subjective Subjective: Interval history: doing ok. upset about sleep and weaning the ambien she shared about her and family situation and the stress, anxiety and depression of her 'new' life Medications: Reviewed: Yes Vitals/I&O/Wt Last Vital Signs Temp 98.9 F 05/11/21 07:28 Pulse 78 05/11/21 08:40 Resp 16 05/11/21 08:38 BP 111/69 05/11/21 07:28 Pulse Ox 96 05/11/21 08:38 05/10/21 05/11/21 05/11/21 22:59 06:59 14:59 Intake Total 480 / 480 120 / 120 Output Total 2500 / 2500 1500 / 4000 Balance -2020 / -2020 -1500 / -3520 120 / 120 Weight last 48 hrs Weight 136.078 kg Physical Exam Narrative: EXAM NARRATIVE: sleepy. NAD. morbidly obese H: reg nl S1 and S2 no loud murmur L: diminshed throughout with inspiratory and expiratory wheezes A: obese soft slight tenderness below umbilicus non distended E: Still with anasarca however I see some improvment Urinary Catheter Management^: Agrawal: Cath Placed During This Visit: no Reason for Continuing Indwelling Catheter: Accurate Measurement of Urinary Output in Critically Ill Patients Data : 05/10/21 07:55 05/11/21 02:37 Micro: Microbiology 05/09/21 16:45 Urine Culture - Preliminary Urine,Clean Catch Gram Negative Rods 05/09/21 16:08 Blood Culture - Preliminary Blood NEGATIVE TO DATE 05/09/21 16:00 Blood Culture - Preliminary Blood NEGATIVE TO DATE A&P Assessment and plan (1) Volume overload state of heart: Continue lasix q12. supplement with K as needed. Status: Acute (2) Anasarca: as above PT for extremity wraps if possible Status: Acute (3) Obesity: Status: Acute (4) Hypertension: Acutally not on anything at home. Will follow and ensure can tolerate magno- i and possibly b malorie. Status: Acute (5) Congestive heart failure: ASA will add low dose magno-i check echo Status: Acute Qualifiers: Heart failure chronicity: acute on chronic Heart failure type: unspecified Qualified Code(s): I50.9 - Heart failure, unspecified (6) COPD (chronic obstructive pulmonary disease): inhalers mostly need to stop smoking which she does not wish to do. Status: Acute (7) Complicated grief: spent 45 min talking about , marriage and what occurred on day of . spoke about living situation and about family and what is upsettingher. will change celexa to effexor. keep celexa for 2 week overlap until effexor works. we talked about self medicating and trying to sleep through the grief Status: Acute (8) Right heart failure: Status: Acute (9) Depression: Status: Acute (10) Anxiety: Status: Acute (11) Tobacco abuse: Status: Acute (12) Tobacco abuse counseling: Status: Acute (13) Acute respiratory failure with hypoxia and hypercapnia: Status: Acute (14) DNR (do not resuscitate) discussion: discussed respiratory failure, hypercapneia, metabolic alkalosis, right sided failure, her role in worsening symptoms and conditions. explained that at some point her body won't be able to compensate any further and she will need major medical assistance and likely mechanical ventilation. She said no, just let me go . I do not want to be resusciated . Status: Acute Attestations Medical Necessity Statement*: Continued hospitalization required for aggressive diuresis and treatment of COPD Coding Level of Care Code Acute Supervisor Endless Track Vehicle for Chg Fwd Diagnoses Volume overload state of heart E87.79 Anasarca R60.1 Obesity E66.9 Hypertension I10 Congestive heart failure I50.9 Heart failure chronicity: acute on chronic Heart failure type: unspecified COPD (chronic obstructive pulmonary disease) J44.9 Complicated grief F43.21 Right heart failure I50.810 Depression F32.9 Anxiety F41.9 Tobacco abuse Z72.0 Tobacco abuse counseling Z71.6 Acute respiratory failure with hypoxia and hypercapnia J96.01; J96.02 DNR (do not resuscitate) discussion Z71.89
[2021-05-11] MEDS: predniSONE 20 mg Tablet 40 MG PO (12:08)
--- NOTE | 2021-05-11 12:19 | PC.CHAP ---
Pastoral Care Encounter/Spiritual Assessment Type of Contact [] Declined real estate lawyer visit [] Patient/Family/Request visit [] Outpatient visit [] Follow-up visit [] Physician referral [] Code/Alert [xx] Routine visit [] Staff referral [] Actively dying [] Patient sleeping [] Family support [] [] Out of room [] Palliative care [] [] Receiving care in room [] Pre-surgical visit [] Trauma [] Long length of stay [] ICU visit [] Other: Relational/Emotional Strength [xx] Patient feels connected with others/family/visitors/staff [] Distress [] Loneliness/isolation [] Abandonment Spirituality of Patient [xx] Person of Sagrario [xx] Attends Scientologist of their Sagrario [xx] Believes in Prayer [] Reads Bible or Judaism materials [xx] There are Spiritual issues to be addressed Telephone Sales Representative Interventions [] Prayer [xx] Active listening [xx] Non-anxious presence [] Spiritual/emotional support [] Crisis/trauma care [] Spiritual counseling [] Bereavement support [] Provided bereavement packet [] Provided Bible/devotional materials [] Provided toy/stuffed animal, coloring book to patient or family member [] Provided Communion [] Anointing/Call [] Salvation [xx] Completed spiritual assessment [] Other: Impact on Illness or Injury [] Angry [] Fearful [] Anxious [] Often cries [] Exhaustion [] Unable to work [] Unable to attend yazidi [] Unable to walk/stand [] Unable to read [] Unable to drive [] Unable to eat/drink [] Unable to sleep [] Unable to be with family [] Patient intubated [] Other: Summary Patient prefers her own taoism's real estate lawyer so did not pray with her. Patient wanted to discuss certain family affairs and concerns which we did until medical staff came in. She has a heavy heart on certain matters. Time spent with patient 10 minutes
--- NOTE | 2021-05-11 14:07 | PC.CHAP ---
Pastoral Care Encounter/Spiritual Assessment Type of Contact [] Declined order to delivery supervisor visit [] Patient/Family/Request visit [] Outpatient visit [] Follow-up visit [xx] Physician referral [] Code/Alert [] Routine visit [xx] Staff referral [] Actively dying [] Patient sleeping [] Family support [] [] Out of room [] Palliative care [] [] Receiving care in room [] Pre-surgical visit [] Trauma [] Long length of stay [] ICU visit [] Other: Relational/Emotional Strength [xx] Patient feels connected with others/family/visitors/staff [] Distress [] Loneliness/isolation [] Abandonment Spirituality of Patient [xx] Person of Sagrario [xx] Attends Congregation of their Sagrario [xx] Believes in Prayer [xx] Reads Bible or Restorationism materials [xx] There are Spiritual issues to be addressed Dietitian Therapeutic Interventions [] Prayer [xx] Active listening [xx] Non-anxious presence [xx] Spiritual/emotional support [] Crisis/trauma care [xx] Spiritual counseling [xx] Bereavement support [xx] Provided bereavement packet [xx] Provided Bible/devotional materials [] Provided toy/stuffed animal, coloring book to patient or family member [] Provided Communion [] Anointing/Pitman [] Salvation [xx] Completed spiritual assessment [] Other: Impact on Illness or Injury [] Angry [] Fearful [] Anxious [] Often cries [] Exhaustion [] Unable to work [] Unable to attend episcopal [] Unable to walk/stand [] Unable to read [] Unable to drive [] Unable to eat/drink [] Unable to sleep [] Unable to be with family [] Patient intubated [xx] Other: grief, depression Summary Hospitalist (Jackie?) asked this order to delivery supervisor to visit with the patient. Patient lost of 39 years to Covid-19 in Sep 2020 and has had several major changes in her life since then with no time to grieve nor any one to freely talk to. Communication with family has been strained as well. Hospitalist asked me to draw her out and just let her talk. This order to delivery supervisor gave patient several pamphlets on grief, [employer] Daily [employer] devotional, a New Testament and a small stuffed toy. Patient was sitting in a chair. Patient was reluctant to talk at first until I asked her to tell me about her whom she called Gino (short for something else) and who she loved more than any one. His was unexpected. She quickly opened up and started talking about him, her daughters, numerous very confidential situations in her past and many other topics about herself. (Her roommate was discharged and she was free to talk and did.) Early in the conversation, the patient paused complaining about a sudden pain in her right religion and a sensation that the left side of her face had fallen. Dietitian Therapeutic got 2 nurses to check her out. This happened 3 times in about 5 minutes then stopped completely. Nurses will continue to monitor her and notify her doctor accordingly. The patient talked freely while order to delivery supervisor listened and occasionally prompted her to continue or change topics. Patient talked through her lunch and appeared to lose all inhibitions about talking. Patient eventually became tired and wanted to go to bed where she could prop her swelling feet up. She felt like she would be able to rest comfortably and felt much better after talking. Dietitian Therapeutic got nurse to help her get into the bed and get her settled. Before order to delivery supervisor left, she said she felt mulch better, was glad to have some one to talk to and did not feel so depressed. Dietitian Therapeutic visited with patient for 2 hours and 25 minutes this visit. Time spent with patient 2 hours 25 minutes this visit.
[2021-05-11] MEDS: zolpidem 5 mg Tablet PO (20:23)
[2021-05-11] MEDS: enoxaparin 40 mg/0.4 mL Syringe SUBCUT (22:11)
[2021-05-12] VITALS (7 sets, daily range): BP systolic 95–115; BP diastolic 57–72; PULSE 77–88; RESP 16–20; TEMP 36.4–37.2; O2SAT 89–97
[2021-05-12 08:21] LABS: Blood Urea Nitrogen 31 mg/dL (8-23); Chloride 89 mmol/L (98-107); Glomerular Filtration Rate 56.2 mL/min (90-130); Glucose 69 mg/dL (65-115); Osmolality Calculated 291 mOsm/kg (285-295); Sodium 138 mmol/L (136-145)
[2021-05-12] MEDS: FUROsemide 10 mg/mL SDV 10mL 60 MG IVP ×2 (08:32→22:19)
[2021-05-12] MEDS: potassium chloride ER 20 mEq Tablet 40 MEQ PO (08:33)
[2021-05-12] MEDS: nicotine 14 mg Patch 1 PATCH TRANSDERMA (08:33)
[2021-05-12] MEDS: predniSONE 20 mg Tablet 40 MG PO (08:33)
[2021-05-12] MEDS: citalopram 20 mg Tablet 40 MG PO (08:33)
[2021-05-12] MEDS: docusate sodium 100 mg Capsule PO ×2 (08:33→17:11)
[2021-05-12] MEDS: venlafaxine ER (24HR) 37.5 mg Capsule PO (08:33)
[2021-05-12 08:36] LABS: Anion Gap 10.1 (5-19); Potassium 4.1 mmol/L (3.5-5.1)
[2021-05-12 08:38] LABS: Magnesium 1.5 mg/dL (1.7-2.3)
[2021-05-12 08:40] LABS: Carbon Dioxide 43 mmol/L (22-29)
[2021-05-12] MEDS: magnesium sulfate premix 4 GM/100 ML PREMIX IV (10:14)
--- NOTE | 2021-05-12 12:00 | PC.NURSE ---
Rounding note. While rounding in room, patient asks Do I have a droop in my face? Nurse assessed, no droop noted. Patient stated that she felt numbness in the side of her face. This nurse did a neuro assessment, everything WNL. System Technologist equal, no drift while holding arms out straight, no facial droop, speech clear. Vital signs WNL. Patient states that her symptoms resolve quickly, but she has felt this way often lately. Dr. Johnson notified.
--- NOTE | 2021-05-12 13:34 | P.PN_ITS ---
Subjective Subjective: Interval history: upset about not sleeping. and upset with daughter. Medications: Reviewed: Yes Vitals/I&O/Wt Last Vital Signs Temp 98.0 F 05/12/21 11:42 Pulse 78 05/12/21 11:42 Resp 20 H 05/12/21 11:42 BP 97/64 05/12/21 11:42 Pulse Ox 89 L 05/12/21 11:42 05/11/21 05/12/21 05/12/21 22:59 06:59 14:59 Intake Total 240 / 360 360 / 720 460 / 460 Output Total 1800 / 1800 2200 / 4000 Balance -1560 / -1440 -1840 / -3280 460 / 460 Physical Exam Narrative: EXAM NARRATIVE: awake, looks better, changed clothes, NAD. morbidly obese H: reg nl S1 and S2 no loud murmur L: diminshed throughout , poor expiratory phase, audible upper airway wheeze. and posteriorly mild exp wheeze A: obese soft slight tenderness below umbilicus non distended E: anasarca is slowly improving. -8L cumulative Urinary Catheter Management^: Agrawal: Cath Placed During This Visit: no Reason for Continuing Indwelling Catheter: Accurate Measurement of Urinary Output in Critically Ill Patients Data : 05/10/21 07:55 05/12/21 06:13 Micro: Microbiology 05/09/21 16:45 Urine Culture - Final Urine,Clean Catch Escherichia coli A&P Assessment and plan (1) Volume overload state of heart: improving on current dose of lasix q12. supplement with K as needed. mg low, supplement and place on oral Status: Acute (2) Anasarca: as above ? wraps. Status: Acute (3) Obesity: Status: Acute (4) Hypertension: Acutally not on anything at home. Will follow and ensure can tolerate magno- i and possibly b malorie. Status: Acute (5) Congestive heart failure: ASA will add low dose magno-i Echo: CONCLUSIONS 1. This is a technically very difficult study. Ultrasound enhancing agent Optison was used per protocol. 2. Normal left ventricular size, systolic function and wall thickness, with no regional wall motion abnormalities. Left ventricular ejection fraction is estimated at 65 %. Normal diastolic function. 3. Normal right ventricular size and systolic function. 4. No significant valvular abnormality. 5. No prior similar studies to compare. Status: Acute Qualifiers: Heart failure chronicity: acute on chronic Heart failure type: unspecified Qualified Code(s): I50.9 - Heart failure, unspecified (6) COPD (chronic obstructive pulmonary disease): inhalers mostly need to stop smoking which she does not wish to do. must have pHTN resulted in fluid overload? Status: Acute (7) Complicated grief: Needs counselor and assistance with family at home. will change celexa to effexor. keep celexa for 2 week overlap until effexor work s. we talked about self medicating and trying to sleep through the grief Status: Acute (8) Right heart failure: not evidience on echo Status: Acute (9) Depression: effexor Status: Acute (10) Anxiety: Status: Acute (11) Tobacco abuse: counselled to quit everyday and she is sick of hearing it. We agreed that perhaps she could cut back even more? Status: Acute (12) Tobacco abuse counseling: as above Status: Acute (13) Acute respiratory failure with hypoxia and hypercapnia: d/c'ed oxygen chcek oxygen sat and call me Status: Acute (14) DNR (do not resuscitate) discussion: discussed respiratory failure, hypercapneia, metabolic alkalosis, right sided failure, her role in worsening symptoms and conditions. explained that at some point her body won't be able to compensate any further and she will need major medical assistance and likely mechanical ventilation. She said no, just let me go . I do not want to be resusciated . Status: Acute Attestations Medical Necessity Statement*: Continued hospitalization required for aggressive diuresis and treatment of COPD Coding Level of Care Code Acute Vegetable Scullion for Chg Fwd Diagnoses Volume overload state of heart E87.79 Anasarca R60.1 Obesity E66.9 Hypertension I10 Congestive heart failure I50.9 Heart failure chronicity: acute on chronic Heart failure type: unspecified COPD (chronic obstructive pulmonary disease) J44.9 Complicated grief F43.21 Right heart failure I50.810 Depression F32.9 Anxiety F41.9 Tobacco abuse Z72.0 Tobacco abuse counseling Z71.6 Acute respiratory failure with hypoxia and hypercapnia J96.01; J96.02 DNR (do not resuscitate) discussion Z71.89
[2021-05-12] MEDS: magnesium oxide 400 mg tablet PO (17:11)
[2021-05-12] MEDS: zolpidem 5 mg Tablet PO (21:49)
[2021-05-12] MEDS: enoxaparin 40 mg/0.4 mL Syringe SUBCUT (21:50)
[2021-05-13] VITALS (7 sets, daily range): BP systolic 88–118; BP diastolic 53–71; PULSE 81–88; RESP 16–20; TEMP 36.6–37.2; O2SAT 84–93
[2021-05-13 05:49] LABS: Anion Gap 8.6 (5-19); Blood Urea Nitrogen 31 mg/dL (8-23); Calcium 8.1 mg/dL (8.5-10.5); Chloride 87 mmol/L (98-107); Glomerular Filtration Rate 56.2 mL/min (90-130); Glucose 85 mg/dL (65-115); Osmolality Calculated 294 mOsm/kg (285-295); Potassium 3.6 mmol/L (3.5-5.1); Sodium 139 mmol/L (136-145)
[2021-05-13 06:02] LABS: Carbon Dioxide 47 mmol/L (22-29)
--- NOTE | 2021-05-13 07:22 | PC.NURSE ---
AM NOTE NOTED PT TO HAVE SCATTERED BRUISES THROUGHOUT BODY - CAIO LOWER EXT APPEAR SEAN - LEFT GREAT TOE AND 2ND TOE NOTED TO HAVE LARGE FLUID FILLED BLISTER - PT STATES SHE DOES NOT KNOW HOW THEY CAME TO BE
[2021-05-13 07:38] LABS: Magnesium 2.1 mg/dL (1.7-2.3); Phosphorus 3.2 mg/dL (2.5-4.5)
[2021-05-13] MEDS: magnesium oxide 400 mg tablet PO (08:21)
[2021-05-13] MEDS: FUROsemide 10 mg/mL SDV 10mL 60 MG IVP (08:21)
[2021-05-13] MEDS: citalopram 20 mg Tablet 40 MG PO (08:21)
[2021-05-13] MEDS: potassium chloride ER 20 mEq Tablet 40 MEQ PO (08:21)
[2021-05-13] MEDS: docusate sodium 100 mg Capsule PO (08:21)
[2021-05-13] MEDS: venlafaxine ER (24HR) 37.5 mg Capsule PO (08:21)
[2021-05-13] MEDS: predniSONE 20 mg Tablet 40 MG PO (08:22)
[2021-05-13] MEDS: nicotine 14 mg Patch 1 PATCH TRANSDERMA (08:22)
--- NOTE | 2021-05-13 10:57 | PM.CONSULT ---
Providers/Reason For Consult Consulting Physician/Specialty*: Nephro Reason for Consult*: Eval for electrolyte disorder Attending Physician: Jayden Johnson DO Primary Care Provider: Rafa Quintero MD History of Present Illness History of Present Illness Thank you for consultation, today the pleasure of reviewing this 61-year-old female for evaluation of electrolyte abnormality. She was admitted back on 05/09 with increasing shortness of breath. She has a history of COPD, obesity, chronic hypoventilation syndrome. She chronically takes diuretics. She stopped taking her diuretics as it was interfering with her quality of life as she was confined to her house with polyuria. Following hospitalization, she is received diuretics, with significant improvement in her breathing. She still remains on nasal cannula, however she still has some edema in her lower extremity. Initial chest x-ray demonstrated no infiltrates. Echocardiogram demonstrates preserved ejection fraction, however technically limited study to give us an idea about PA pressures and right-sided filling pressures etc. Admission CO2 on BMP was 37, creatinine 1.1. On 05/09, ABG demonstrated pH 7.41, PCO2 68.8 and bicarb of 43.6. Over the last few days the bicarb levels now increased to 47 on the BMP. No history of diabetes, hypertension, liver disease, kidney disease etc. Following hospitalization, hemodynamics reviewed, remained stable. Review of Systems Narrative: ROS - 12 point review of systems completed per HPI and subjective assessment, this includes Constitutional: No weakness, fatigue Respiratory: No SOB on exertion, comfortable at rest CardioVasc: No chest pain, palpitations Gastrointestinal: No nausea, no vomiting Neurological: No seizures, no AMS Derm: No new rashes, lesions or wounds Immunological: No seasonal and no food allergies Meds/Allergies Home Medications and Allergies Home Medications Medication Instructions Recorded Confirmed Last Taken Type citalopram 40 mg PO DAILY MDD see pharmacy 04/14/21 05/09/21 04/14/21 History comment potassium chloride 20 meq PO DAILY #6 cap 04/14/21 05/09/21 05/04/21 Rx alprazolam 0.25 - 0.5 mg PO BID PRN 05/09/21 05/09/21 05/08/21 History furosemide [Lasix] 60 mg PO DAILY MDD see pharmacy 05/09/21 05/09/21 05/04/21 History comment zolpidem [Ambien CR] 12.5 mg PO BEDTIME 05/09/21 05/09/21 05/08/21 History Allergies Allergy/AdvReac Type Severity Reaction Status Date / Time No Known Allergies Allergy Verified 04/14/21 13:37 Current Medications Current Medications Generic Name Dose Route Start Last Admin Trade Name Keturah PRN Reason Stop Dose Admin Albuterol/Ipratropium 1 puff 05/10/21 16:00 05/12/21 21:48 Ipratropium-Albuterol 4 Gm Mdi INHALATION 1 puff QID.RESPIRATORY JERAMIE Administration Citalopram Hydrobromide 40 mg 05/10/21 09:00 05/13/21 08:21 Citalopram 20 Mg Tablet PO 40 mg DAILY JERAMIE Administration Docusate Sodium 100 mg 05/10/21 09:00 05/13/21 08:21 Docusate Sodium 100 Mg Capsule PO 100 mg BID JERAMIE Administration Enoxaparin Sodium 40 mg 05/09/21 22:54 05/12/21 21:50 Enoxaparin 40 Mg/0.4 Ml Syringe SUBCUT 40 mg Q24H JERAMIE Administration Magnesium Oxide 400 mg 05/12/21 18:00 05/13/21 08:21 Magnesium Oxide 400 Mg Tablet PO 400 mg BID JERAMIE Administration Nicotine 1 patch 05/10/21 02:54 05/13/21 08:22 Nicotine 14 Mg Patch TRANSDERMA 1 patch DAILY JERAMIE Administration Potassium Chloride 40 meq 05/09/21 22:54 05/13/21 08:21 Potassium Chloride Er 20 Meq Tablet PO 40 meq DAILY JERAMIE Administration Prednisone 40 mg 05/11/21 11:30 05/13/21 08:22 Prednisone 20 Mg Tablet PO 05/16/21 11:29 40 mg DAILY JERAMIE Administration Fluticasone/Salmeterol 1 puff 05/10/21 20:00 05/12/21 21:48 Fluticasone-Salmeterol 250-50 Diskus INHALATION Not Given BID.RESPIRATORY JERAMIE Venlafaxine HCl 37.5 mg 05/12/21 09:00 05/13/21 08:21 Venlafaxine Er (24hr) 37.5 Mg Capsule PO 37.5 mg DAILY JERAMIE Administration Zolpidem Tartrate 5 mg 05/10/21 21:00 05/12/21 21:49 Zolpidem 5 Mg Tablet PO 5 mg BEDTIME JERAMIE Administration Vitals/I&O/Wt Last Vital Signs Temp 98.3 F 05/13/21 08:00 Pulse 86 05/13/21 08:00 Resp 20 H 05/13/21 08:00 BP 118/71 05/13/21 08:00 Pulse Ox 93 05/13/21 08:00 05/12/21 05/13/21 05/13/21 22:59 06:59 14:59 Intake Total 360 / 820 Output Total 550 / 1850 2225 / 4075 900 / 900 Balance -190 / -1030 -2225 / -3255 -900 / -900 Physical Exam Narrative: EXAM NARRATIVE: Constitutional: Awake, comfortable HEENT: Wet mucosa, no jvp, non icteric Lungs: Bilaterally diminished without discernible wheeze, rales in all lung zones CVS: S1 S2, no murmurs Abdo: Soft, BS ok Ext 4: 2+ edema, peripheral perfusion with no cyanosis Neurological: Grossly non-focal Urinary Catheter Management^: Agrawal: Cath Placed During This Visit: no Reason for Continuing Indwelling Catheter: Other Data Micro: Micro: Microbiology 05/09/21 16:45 Urine Culture - Fi nal Urine,Clean Catch Escherichia col i A&P Additional A&P Information 1. Chemistry On admission she has a chronic respiratory acidosis, this is consistent with clinical history of COPD and obesity related hypoventilation. Her ABG showed PCO2 of 68.8 is a delta of 28.8, hence, her expected dose from bicarb is only 10, hence a bicarb of 43.6 is consistent with combination of chronic respiratory acidosis with metabolic alkalosis. This would be consistent with her use of diuretics both prior to hospitalization and during hospitalization. She still has clinical hypervolemia, I will switch her diuretics from IV Lasix twice daily to daily oral Lasix as well as Diamox 500 mg in the afternoon. Daily labs 2. Shortness of breath Consistent with COPD, obesity related hypoventilation syndrome. Continue nasal cannula oxygen, Advair, Combivent, diuretics as described above. 3. Disposition From my own perspective, she is clinically stable for discharge, will of course defer to Dr Alex Jose MD Nephrology [phone] Patient seen and examined via telemedicine, with the assistance of the bedside RN > 25 min spent in evaluation and mgmt of patient Coding Level of Care Code Acute Business Applications Specialist for Esther Carey
--- NOTE | 2021-05-13 13:46 | PM.DCS ---
Discharge Providers Date of Admission: 05/09/21 17:36 Date of Discharge: May 13, 2021 Attending Provider at Admission: Jayden Johnson DO Attending Provider at Discharge: Jayden Johnson DO Primary Care Provider: Rafa Quintero MD Diagnoses at Discharge Discharge Diagnosis (1) Volume overload state of heart: Status: Acute (2) Anasarca: Status: Acute (3) Obesity: Status: Acute (4) Hypertension: Status: Acute (5) Congestive heart failure: Status: Acute Qualifiers: Heart failure chronicity: acute on chronic Heart failure type: unspecified Qualified Code(s): I50.9 - Heart failure, unspecified (6) COPD (chronic obstructive pulmonary disease): Status: Acute (7) Complicated grief: Status: Acute (8) Right heart failure: Status: Acute (9) Depression: Status: Acute (10) Anxiety: Status: Acute (11) Tobacco abuse: Status: Acute (12) Tobacco abuse counseling: Status: Acute (13) Acute respiratory failure with hypoxia and hypercapnia: Status: Acute (14) DNR (do not resuscitate) discussion: Status: Acute Reason for Visit Reason for Visit: BLE SWELLING,SENT BY DR SOLANO[facility] Hospital Course Hospital Course 61 y/o obese WF presents with increasing shortness of breath. She has a history of COPD, obesity, and chronic hypoventilation syndrome. She chronically takes diuretics. She stopped taking her diuretics as it was interfering with her quality of life as she was confined to her house with polyuria. Following hospitalization, she is received diuretics, with significant improvement in her breathing and total net i/o of neagtive 14 L! She still remains on nasal cannula, however she still has anasarca although significantly improved. edema in her lower extremity. Initial chest x-ray demonstrated no infiltrates. Echocardiogram demonstrates preserved ejection fraction, however technically limited study to give us an idea about PA pressures and right-sided filling pressures etc. Suspect right sided heart faiure. Admission CO2 on [facility] was 37, creatinine 1.1. On 05/09, ABG demonstrated pH 7.41, PCO2 68.8 and bicarb of 43.6. Over the last few days the bicarb levels now increased to 47 on the BMP. No history of diabetes, hypertension, liver disease, kidney disease etc. Nephrology consulted. Her bicarb is compensatory met alk for resp acidosis. Thus she now will carry the dx of combination of chronic respiratory acidosis with metabolic alkalosis. This would be consistent with her use of diuretics both prior to hospitalization and during hospitalization. Nephrology recommended to switch back to oral lasix 60 mg daily and add Diamox 500 mg in the afternoon. Nephrology agreed with discharge. Although pt has audible wheeze and wheezing posteriorly on exam this is MUCH improved. When first admitted she wasn't wheezing because he air movement was limited. I spent much time in discussion with her edytaughotu her stay and the following are my recommendations: Weigh yourself daily if gain > 3 lbs in 1 day then take Lasix 60 mg twice a day until weight returns. Goal is still to lose 1/2 lb a day on current regimen Diamox or acetazolamide is new. Take it about 6 hours after lasix dose. I added venlafaxine for depression to your citalopram Recommend you seek counseling for your grief and stress. Recommend to quit smoking. ATleast cut back and hopefully thorugh counseling and medication you can quit. Otherwise you risk chronic respiratory failure on oxygen for rest of life and repetitive admissions to hospital like this. restrict all fluids to 1500 ml a day Ideally she should be weaned off ambien and xanax and use antidepressants and counseling. I would not prescribe any more xanax as she appears to have abused it. Physical Exam Narrative: EXAM NARRATIVE: awake, looks better, especially color of face NAD. morbidly obese H: reg nl S1 and S2 no loud murmur L: diminshed throughout , poor expiratory phase, audible upper airway wheeze. and posteriorly mild exp wheeze, moving actually more air. A: obese soft slight tenderness below umbilicus non distended E: anasarca is improving. I can she her knee cap on right. left still with bruise. blisters have subsided on left toes. -12.8 L cumulative Urinary Catheter Management^: Agrawal: Cath Placed During This Visit: no Reason for Continuing Indwelling Catheter: Other Discharge Data Data Completed and Pending: Completed Studies During Hospitalization Category Date Time Status CT head wo con* 7 0450 Stat Cat Scan 05/09/21 15:03 Completed XR chest 1V lluvia ble [id number] Stat Exams 05/09/21 15:03 [place] [id number] Stat Ultrasound 05/09/21 15:02 Completed CV. echo wo/w con trast [id number] Routin e Ultrasound 05/10/21 11:04 Completed Pending at discharge Category Date Time Status Basic Metabolic P scott AM LABS Lab 05/14/21 04:00 Ordered Basic Metabolic P scott AM LABS Lab 05/15/21 04:00 Ordered Blood Culture Sta t Lab 05/09/21 16:08 Results Labs from last 24 hours 05/13/21 05/13/21 04:33 04:33 Sodium 139 Potassium 3.6 Chloride 87 L Carbon Dioxide 47 H* Anion Gap 8.6 BUN 31 H Creatinine 1.0 H GFR Calculation 56.2 L Glucose 85 Calculated Osmolal ity 294 Calcium 8.1 L Phosphorus 3.2 Magnesium 2.1 Vitals: Last Vital Signs Temp 98.1 F 05/13/21 11:32 Pulse 81 05/13/21 11:32 Resp 18 05/13/21 11:32 BP 102/66 05/13/21 11:32 Pulse Ox 84 L 05/13/21 13:44 Discharge Plan Discharge Patient Disposition: Home Condition: Stable Prescriptions: New zolpidem 5 mg Tablet 5 mg PO BEDTIME Qty: 30 RF: 0 fluticasone propion-salmeterol [Advair Diskus] 250-50 mcg/dose Blister With Device 1 puff inhalation BID.RESPIRATORY Qty: 1 RF: 0 Combivent Respimat 20-100 mcg/actuation Mist 1 puff inhalation QID.RESPIRATORY Qty: 1 RF: 0 acetazolamide 250 mg Tablet 500 mg PO DAILY Qty: 30 RF: 0 furosemide 40 mg Tablet 60 mg PO DAILY@0800 Qty: 45 RF: 0 magnesium oxide 400 mg (241.3 mg magnesium) tablet 400 mg PO BID Qty: 60 RF: 0 venlafaxine 37.5 mg Capsule,Extended Release 24hr 37.5 mg PO DAILY Qty: 30 RF: 0 Continued citalopram 40 mg Tablet 40 mg PO DAILY MDD see pharmacy comment RF: 0 potassium chloride 10 mEq capsule, extended release 20 meq PO DAILY Qty: 6 RF: 1 Lasix 40 mg Tablet 60 mg PO DAILY MDD see pharmacy comment RF: 0 alprazolam 0.5 mg Tablet 0.25 - 0.5 mg PO BID PRN (Reason: Anxiety) RF: 0 No Action Ambien CR 12.5 mg Tablet,Ext Release Multiphase 12.5 mg PO BEDTIME RF: 0 Discharge Orders: Discharge Order (Routine); Ordered 05/13/21 Ordered By: Jayden Johnson Referrals: Rafa Quintero MD [Primary Care Provider] - 1 week (Please call on Friday, May 14, to schedule a follow-up appointment. ) Discharge Diet: Low Salt Discharge Activity: Increase activity as tolerated Patient Instructions: Opioid Safety Activity Restrictions/Additional Instructions: Weigh yourself daily if gain > 3 lbs in 1 day then take Lasix 60 mg twice a day until weight returns. Goal is still to lose 1/2 lb a day on current regimen Diamox or acetazolamide is new. Take it about 6 hours after lasix dose. I added venlafaxine for depression to your citalopram Recommend you seek counseling for your grief and stress. Recommend to quit smoking. ATleast cut back and hopefully thorugh counseling and medication you can quit. Otherwise you risk chronic respiratory failure on oxygen for rest of life and repetitive admissions to hospital like this. restrict all fluids to 1500 ml a day Discharge Attestations Time Spent in Discharge Care*: greater than 30 min Specific Discharge Activities: educating patient, educating and/or supporting family/caregiver, discussing with pcp/other providers, discussing with keycase assembler/social workers/dc planners, documenting/other paperwork and evaluating patient/reviewing data Time Spent in Smoking Cessation: 3 to 10 minutes every day we have discussed. She knows risks of worsening COPD/ etc.. NOt ready to quit Quality Metrics Clinical Quality Measures During this hospital stay, did patient experience: None Coding Level of Care Code Acute Chg DC note Diagnoses Volume overload state of heart E87.79 Anasarca R60.1 Obesity E66.9 Hypertension I10 Congestive heart failure I50.9 Heart failure chronicity: acute on chronic Heart failure type: unspecified COPD (chronic obstructive pulmonary disease) J44.9 Complicated grief F43.21 Right heart failure I50.810 Depression F32.9 Anxiety F41.9 Tobacco abuse Z72.0 Tobacco abuse counseling Z71.6 Acute respiratory failure with hypoxia and hypercapnia J96.01; J96.02 DNR (do not resuscitate) discussion Z71.89
[2021-05-13] MEDS: acetaZOLAMIDE 250 mg Tablet 500 MG PO (15:03)
--- NOTE | 2021-05-13 17:00 | PC.NURSE ---
DISCHARGE INSTRUCTIONS DISCHARGE INSTRUCTIONS WELL SCRIPT FOR AMBIEN AND HOME OXYGEN GIVEN TO PT - PT VERBALIZES UNDERSTANDING
== END 2021-05-13 17:00 | disposition home or self-care (01) | DRG 291 ==
LOC: ER 17:45 → ER IP 22:58 → MEDSURG 05-10 19:53
PROVIDERS: Admitting Provider Internal Medicine; Emergency Provider Emergency Medicine; PCP Family Medicine; Visit Provider Internal Medicine
DX: I11.0 Hypertensive heart disease with heart failure (principal); J96.02 Acute respiratory failure with hypercapnia; J96.01 Acute respiratory failure with hypoxia; E66.2 Morbid (severe) obesity with alveolar hypoventilation; Z68.42 Body mass index [BMI] 45.0-49.9, adult; E87.4 Mixed disorder of acid-base balance; T50.1X6A Underdosing of loop [high-ceiling] diuretics, initial encounter; Z91.128 Patient's intentional underdosing of medication regimen for other reason; J44.9 Chronic obstructive pulmonary disease, unspecified; F17.210 Nicotine dependence, cigarettes, uncomplicated; F41.8 Other specified anxiety disorders; Z63.4 Disappearance and death of family member; I50.813 Acute on chronic right heart failure; Z66 Do not resuscitate
CPT/HCPCS: 36415; 36600; 51702; 70450; 71045; 80048; 80051; 80053; 80061; 80306; 81001; 82009; 82330; 82550; 82805; 83605; 83690; 83735; 83880; 84100; 84439; 84443; 84484; 85025; 85610; 87040; 87077; 87086; 87186; 87426; 93970; 94640; 96365; 96372; 96375; 97110; 97116; 97161; 97165; 97530; 97535; 99285; C8929; J1650; J1940; J2543; J2930; J3475; J3535; J7512; Q9956

== ENCOUNTER → 2023-02-28 15:38 | Outpatient (BNVA) | payer MEDICAID, SELFPAY | PROVIDERS: PCP Family Medicine; Visit Provider Nurse Practitioner Family | DX: R05.9 Cough, unspecified (principal); J44.9 Chronic obstructive pulmonary disease, unspecified | CPT/HCPCS: 71046 ==

== ENCOUNTER → 2023-10-01 16:45 | Outpatient (BNVA) | payer SELFPAY | PROVIDERS: PCP Family Medicine; Visit Provider Nurse Practitioner Family | DX: R05.9 Cough, unspecified (principal) | CPT/HCPCS: 87400; 87426 ==

== ENCOUNTER 2024-01-25 16:19 | Inpatient (IN) | payer MEDICARE, SELFPAY ==
[2024-01-25] VITALS (63 sets, daily range): BP systolic 117–162; BP diastolic 55–100; PULSE 62–81; RESP 14–25; TEMP 37.1–37.9; O2SAT 90–100; BMI 42.9
--- NOTE | 2024-01-25 16:28 | XRR_ITS ---
PROCEDURE INFORMATION: Exam: XR Chest Exam date and time: 01/25/2024 4:33 PM Age: 64 years old Clinical indication: Shortness of breath; Patient HX: SOB; Low o2 sat TECHNIQUE: Imaging protocol: Radiologic exam of the chest. Views: 1 view. COMPARISON: CR XR chest 2V* [id number] 02/28/2023 3:51 PM FINDINGS: Lungs: No focal consolidation. Pleural spaces: No evidence of pneumothorax. No evidence of pleural effusion. Heart/Mediastinum: Cardiomediastinal silhouette is within normal limits. Bones/joints: No evidence of acute osseous abnormality. XR/XR chest 1V [id number] IMPRESSION: 1. No acute cardiopulmonary abnormality.
--- NOTE | 2024-01-25 16:30 | W.ED.SOB ---
HPI - SOB/Dyspnea General: Chief Complaint: Shortness of Breath/Dyspnea Stated Complaint: LETHARGY; HYPOXIA Time Seen by Provider: 01/25/24 16:23 History of Present Illness: HPI Narrative: 64-year-old female with morbid obesity, COPD, CHF, hypoventilation syndrome, and chronic Ambien use and chronic hypoxemic respiratory failure on home O2 who presents to the emergency room with somnolence and worsening hypoxemia. She is quite somnolent but does arouse in the emergency room. She is on a nonrebreather when she arrives here. EMS reports that she had a bottle of Ambien filled 15 days ago and has already taken 40 tablets. She just says to me that she wants to go to sleep. When she wakes up. Limited review of systems but she denies any pain. No chest pain. No abdominal pain. No reports of vomiting. Review of Systems General: Reports: ROS unobtainable due to medical condition PFS ED PFSH: Medical History Acute respiratory failure with hypoxia and hypercapnia Tobacco abuse counseling Hypertension Physical Exam Narrative: EXAM NARRATIVE: General: Somnolent, morbidly obese Skin: Warm, dry. Head: Normocephalic, atraumatic. Neck: Supple, trachea midline. Eye: Extraocular movements are intact. Ears, nose, mouth and throat: mucosa moist. Cardiovascular: Regular, Normal peripheral perfusion. Respiratory: Coarse, mild tachypnea, some scattered wheeze, breath sounds are equal, Symmetrical chest wall expansion. Gastrointestinal: Soft, Nontender, Non distended, Normal bowel sounds. Musculoskeletal: Normal ROM, no deformity. Neurological: Patient is quite somnolent, No focal neurological deficit observed. Psychiatric: Unable to assess patient is very somnolent Course Vital Signs: Vital signs: Vital Signs Temperature 100.3 F H 01/25/24 16:26 Pulse Rate 81 01/25/24 17:44 Respiratory Rate 19 H 01/25/24 17:44 Blood Pressure 117/82 01/25/24 17:30 Pulse Oximetry 98 01/25/24 17:44 Oxygen Delivery Me thod Nasal Cannula 01/25/24 17:44 Oxygen Flow Rate 4 01/25/24 17:44 MDM - SOB/Dyspnea Medical Decision Making Differential diagnosis for patient with shortness of breath includes but is not limited to and based on the above HPI, review of systems and physical exam: Pneumonia. Bronchitis. Asthma or COPD with acute exacerbation. Acute coronary syndrome / [place]. Pulmonary embolism. Anxiety. Congestive heart failure. Viral infections including influenza and Covid-19. Atrial fibrillation. Anxiety. Pleural effusion. Pneumothorax. Workup: Lab work, chest X-ray and EKG ordered to evaluate, rule in and rule out above pathologies Lab Review: Laboratory results were reviewed and interpreted by myself the emergency room physician. Initial troponin is mildly elevated. proBNP is 12,000 which is about where it was 2 years ago when she was admitted to the hospital. No leukocytosis. White count of 7.6. Her potassium is a little bit elevated. At 6. BUN and creatinine are less than previous at 25 and 1.4. All of this along with an elevation in her LFTs with no elevation in her bilirubin 0.2 venous congestion/fluid overload/congestive heart failure. She also has some hypoventilation and COPD. Her blood gas shows hypercapnia. AB.3 with an O2 sat of 89% on 3 L. Patient was placed on a BiPAP EKG: Time 1625 rate 73 normal sinus rhythm, No ST-T changes, no ectopy, normal OK & QRS intervals, This was reviewed and interpreted by myself the ER physician at 1632. Chest x-ray: No acute process. No infiltrate. No pneumothorax. Stable cardiomegaly. This was reviewed and interpreted by myself the ER physician. Chart review: I reviewed the patient's medical record. Last admission was a couple years back. She was admitted for CHF and hypoventilation. Reexamination: Patient's LFTs are elevated, but she does not have any right upper quadrant pain and no elevation in her bilirubin. I think this is venous congestion. She is stable on a BiPAP. She seems a bit more alert at this time and answers questions a little bit better although she is on a BiPAP. Family is present. Lungs still have some wheeze. No focal motor deficits. Lab Data 01/25/24 16:50 01/25/24 16:50 Labs/Radiology: Radiology Impressions Chest X-Ray 01/25/24 16:28 IMPRESSION: 1. No acute cardiopulmonary abnormality. Laboratory Results WBC 7.64 10^3/uL (3.29-11.43) 01/25/24 16:50 RBC 3.65 10^6/uL (3.85-5.65) L 01/25/24 16:50 Hgb 11.20 g/dL (11.27-16.99) L 01/25/24 16:50 Hct 38.6 % (36-47) 01/25/24 16:50 MCV 105.8 fl (85-98) H 01/25/24 16:50 MCH 30.7 pg (27-33) 01/25/24 16:50 MCHC 29.0 g/dL (30-55) L 01/25/24 16:50 RDW 15.8 % (12.1-15.1) H 01/25/24 16:50 Plt Count 196 10^3/cmm (157-399) 01/25/24 16:50 MPV 10.4 fL (7.4-10.4) 01/25/24 16:50 Neut % (Auto) 74.3 % 01/25/24 16:50 Lymph % (Auto) 12.8 % 01/25/24 16:50 [place] % (Auto) 12.0 % 01/25/24 16:50 Eos % (Auto) 0.1 % 01/25/24 16:50 Baso % (Auto) 0.3 % 01/25/24 16:50 Neut # (Auto) 5.67 10^3/uL (1.8-7.7) 01/25/24 16:50 Lymph # (Auto) 1.0 10^3/uL (0.8-4.8) 01/25/24 16:50 [place] # (Auto) 0.9 10^3/uL (0.2-0.9) 01/25/24 16:50 Eos # (Auto) 0.0 10^3/uL (0.0-0.8) 01/25/24 16:50 Baso # (Auto) 0.0 10^3/uL (0.0-0.1) 01/25/24 16:50 Nucleated RBC % (auto) 0 % 01/25/24 16:50 Nucleated RBCs # 0.0 /100WBC 01/25/24 16:50 Specimen Type Arterial 01/25/24 17:59 Sample Site Radial, right 01/25/24 17:59 ABG pH 7.33 (7.35-7.45) L 01/25/24 17:59 ABG pCO2 72.1 mmHg (35-45) H* 01/25/24 17:59 ABG pO2 75.2 mmHg (80.0-100.0) L 01/25/24 17:59 ABG PO2/FiO2 Ratio 0 01/25/24 17:59 ABG HCO3 37.9 mmol/L (22-26) H 01/25/24 17:59 ABG O2 Saturation 92.7 01/25/24 17:59 ABG Base Excess 9.4 mmol/L (-2.0-2.0) H 01/25/24 17:59 Ismael Test Pos 01/25/24 17:59 A-a O2 Gradient 12.2 mmHg (5-10) H 01/25/24 17:59 Hematocrit 36.5 % (37-47) L 01/25/24 17:59 Hgb O2 Saturation 89.6 % (95-100) L 01/25/24 17:59 Carboxyhemoglobin 3.0 %THgb (0.4-20.1) 01/25/24 17:59 Methemoglobin 0.3 % (0.4-1.5) L 01/25/24 17:59 Total Hemoglobin 11.9 g/dL (12-16) L 01/25/24 17:59 Sodium 139.0 mmol/L (131-143) 01/25/24 17:59 Potassium 5.8 mmol/L (3.5-5.0) H 01/25/24 17:59 Glucose 100.0 mg/dL (70-115) 01/25/24 17:59 Ionized Calcium 1.2 mmol/L (1.1-1.4) 01/25/24 17:59 O2 Delivery Device Nc 01/25/24 17:59 O2 Liters/Min 3.0 % 01/25/24 17:59 FiO2 36.0 % 01/25/24 17:59 Spooler Operator Automatic ID glc 01/25/24 17:59 Sodium 138 mmol/L (136-145) 01/25/24 16:50 Potassium 6.0 mmol/L (3.5-5.1) H 01/25/24 16:50 Chloride 97 mmol/L (98-107) L 01/25/24 16:50 Carbon Dioxide 36 mmol/L (22-29) H 01/25/24 16:50 Anion Gap 11.0 (5-19) 01/25/24 16:50 BUN 25 mg/dL (8-23) H 01/25/24 16:50 Creatinine 1.4 mg/dL (0.5-0.9) H 01/25/24 16:50 GFR Calculation 37.7 mL/min (90-130) L 01/25/24 16:50 Glucose 91 mg/dL (65-115) 01/25/24 16:50 Calculated Osmolality 290 mOsm/kg (285-295) 01/25/24 16:50 Lactic Acid 1.2 mmol/L (0.5-2.2) 01/25/24 16:50 Calcium 8.6 mg/dL (8.5-10.5) 01/25/24 16:50 Total Bilirubin 0.9 mg/dL (0.15-1.2) 01/25/24 16:50 AST 1274 U/L (0-32) H 01/25/24 16:50 ALT 600 U/L (0-33) H 01/25/24 16:50 Alkaline Phosphatase 149 U/L (35-105) H 01/25/24 16:50 Troponin T Baseline 34 ng/L (0-10) H 01/25/24 16:50 C-Reactive Protein 34.3 mg/L (0.0-4.9) H 01/25/24 16:50 NT-Pro-B Natriuret Pep 23150 pg/mL (0-125) H 01/25/24 16:50 Total Protein 6.6 g/dL (6.6-8.7) 01/25/24 16:50 Albumin 3.4 g/dL (3.5-5.2) L 01/25/24 16:50 Globulin 3.2 g/dL (1.3-4.6) 01/25/24 16:50 Influenza Type A Ag negative (Negative) 01/25/24 18:21 Influenza Type B Ag negative (Negative) 01/25/24 18:21 SARS-CoV-2 Ag (Rapid) negative (Negative) 01/25/24 18:21 All radiology interpretation(s) finalized by discharge Other Data Assessment and plan: Hypercapnic respiratory failure Acute on chronic hypoxemic respiratory failure Hypoventilation syndrome CHF with acute exacerbation Fluid overload Transaminitis -IV Solu-Medrol and updrafts. -Patient placed on a BiPAP. -80 mg IV Lasix. -I discussed the patient with the hospitalist on-call who is admitting the patient. - Discussed findings and plan with patient. Answered any questions. - All laboratory values were reviewed and interpreted personally by myself, the ER physician - All imaging was reviewed and interpreted personally by myself, the ER physician. - Evaluation and treatment of this problem were appropriate in the emergency setting -I spent a total of >35 minutes of critical care time managing the patient, independent of any other practitioner. -The time involved in the performance of separately reportable procedures was not counted towards critical care time. Discharge Plan Discharge Patient Disposition: Placed in Observation Clinical Impression: Obesity hypoventilation syndrome, Congestive heart failure, Acute on chronic respiratory failure with hypoxia and hypercapnia, Transaminitis Coding Level of Care Code ED Clipman for Esther Carey
[2024-01-25] MEDS: methylPREDNISolone sod succ 125 mg/2 mL INJ IVP (16:45)
[2024-01-25 17:01] LABS: Basophils % 0.3 %; Eosinophils % 0.1 %; Hematocrit 38.6 % (36-47); Lymphocytes % 12.8 %; Mean Corpuscular Hemoglobin 30.7 pg (27-33); Mean Corpuscular Volume 105.8 fl (85-98); Mean Platelet Volume 10.4 fL (7.4-10.4); Monocytes # 0.9 10^3/uL (0.2-0.9); Neutrophils # 5.67 10^3/uL (1.8-7.7); Neutrophils % 74.3 %; Nucleated Red Blood Cells % 0 %; Platelet Count 196 10^3/cmm (157-399); Red Blood Count 3.65 10^6/uL (3.85-5.65); Red Cell Distribution Width 15.8 % (12.1-15.1); White Blood Count 7.64 10^3/uL (3.29-11.43)
[2024-01-25 17:21] LABS: Lactic Sepsis W/Reflex 1.2 mmol/L (0.5-2.2)
[2024-01-25 17:22] LABS: Alanine Aminotransferase 600 U/L (0-33); Albumin Level 3.4 g/dL (3.5-5.2); Alkaline Phosphatase 149 U/L (35-105); Blood Urea Nitrogen 25 mg/dL (8-23); C Reactive Protein 34.3 mg/L (0.0-4.9); Calcium 8.6 mg/dL (8.5-10.5); Carbon Dioxide 36 mmol/L (22-29); Chloride 97 mmol/L (98-107); Creatinine Clr Calc Pharmacy 52.8652; Globulin 3.2 g/dL (1.3-4.6); Glomerular Filtration Rate 37.7 mL/min (90-130); Glucose 91 mg/dL (65-115); Osmolality Calculated 290 mOsm/kg (285-295); Sodium 138 mmol/L (136-145); Total Bilirubin 0.9 mg/dL (0.15-1.2); Total Protein 6.6 g/dL (6.6-8.7)
[2024-01-25 17:30] LABS: Aspartate Amino Transferase 1274 U/L (0-32)
[2024-01-25] MEDS: ipratropium-albuterol 3 mL Neb INHALATION ×2 (17:40→23:20)
[2024-01-25] MEDS: albuterol 2.5 mg/3 mL Neb INHALATION (17:40)
[2024-01-25 18:11] LABS: ABG PH Result 7.33 (7.35-7.45); Alveolar-Arterial Oxygen Gradi 12.2 mmHg (5-10); Arterial Blood Gas Hematocrit 36.5 % (37-47); Base Excess ABG 9.4 mmol/L (-2.0-2.0); Blood Gas Allen Test Pos; Blood Gas Operator Identificat glc; Blood Gas Sample Site Radial, right; Blood Gas Sample Type Arterial; HCO3 ABG 37.9 mmol/L (22-26); HGB O2 Sat 89.6 % (95-100); Ionized Calcium Level - ABG 1.2 mmol/L (1.1-1.4); Methemoglobin 0.3 % (0.4-1.5); Oxygen Device NC; Oxygen Saturation ABG 92.7; PO2 ABG 75.2 mmHg (80.0-100.0); PO2 FiO2 Ratio Arterial Blood 0; Potassium Level - ABG 5.8 mmol/L (3.5-5.0); Total Hemoglobin 11.9 g/dL (12-16)
--- NOTE | 2024-01-25 18:20 | ECG_ITS ---
[facility] Test Date: 2024-01-25 Pat Name: Ramonita Balbuena Department: Room: Gender: Female Drier Operator: : 1960 Requested By: Dawna Werner Order Number: [id number] Navi MD: Moni Pepe M.D. Measurements Intervals [place] Rate: 73 P: 70 [place]: 181 QRS: 51 QRSD: 100 T: -13 QT: 404 QTc: 447 Interpretive Statements SINUS RHYTHM WITH SINUS ARRHYTHMIA LOW QRS VOLTAGE IN PRECORDIAL LEADS [QRS DEFLECTION < 1.0 mV IN CHEST LEADS] NONSPECIFIC T-WAVE ABNORMALITY Compared to ECG 04/14/2021 14:44:02 Low QRS voltage now present T-wave abnormality now present ST (T wave) deviation no longer present Electronically Signed On 01-25-2024 20:52:34 CDT by Moni Pepe M.D. [id number]
[2024-01-25 18:22] LABS: ABG PCO2 72.1 mmHg (35-45)
[2024-01-25 18:44] LABS: Troponin(5th) Baseline 34 ng/L (0-10)
[2024-01-25 18:56] LABS: NT Pro B Type Natriuretic Pept 12360 pg/mL (0-125)
[2024-01-25] MEDS: FUROsemide 10 mg/mL SDV 10mL 80 MG IVP (18:59)
[2024-01-25 19:07] LABS: Influenza A by IFA negative (Negative); Influenza B by IFA negative (Negative); SARS Covid-2 Antigen negative (Negative)
[2024-01-25 19:25] LABS: Troponin 5 2HR 35.31 ng/L (0-10); Troponin 5 2HR Delta 1.31 ABS# (0-10)
--- NOTE | 2024-01-25 19:47 | P.HP_ITS ---
Providers/Chief Complaint 2 Admitting Physician: Dino Moore MD Primary Care Provider: Rafa Quintero MD Chief Complaint: LETHARGY; HYPOXIA History of Present Illness Ramonita Balbuena is a 64 year old female heart failure with preserved ejection fraction, COPD with chronic hypoxic respiratory failure with 3 L baseline, obesity hypoventilation syndrome, tobacco use disorder, obesity, depression, anxiety, insomnia, and multiple other comorbidities who presents emergency department with lethargy. Upon assessment, patient is in a stuporous state. She is unable to provide any history. The patient's mother and daughter at bedside. Chart reviewed and collateral information obtained from family and ED provider. Family reports patient was in her usual state of health until this morning. Yesterday, she even attended a birthday green party for her mother who is bedside. Her mother who lives with her, found patient to be stuporous today. She is unable to really arouse her. Patient's daughter evaluated her and found her laying in nausea and vomiting. She states she was not wearing her oxygen as she was supposed to. Family notes that her lower extremity swelling is worse in the prior days. In the emergency department, patient was found to have combined respiratory failure with hypoxia and hypercapnia. She was placed on BiPAP. Family reports she continues to smoke cigarettes. Patient was also found to have ambien. Her daughter thought she had been taken off this medication. There is concern that she may have taken additional Ambien based upon the number of pills available in her prescription bottle. Due to patient's super status, further medical history cannot be obtained from the patient. Family reports patient has not had any major surgeries. She has no surgical history listed in the chart. They also report congestive heart failure does not run in the family. Review of Systems 2 Narrative: Attempted to complete a complete review of systems but unable to due to patient's super status and inability to provide further history. Medications/Allergies Home Medications Medication Instructions Recorded Confirmed Last Taken Type citalopram 40 mg tablet 40 mg PO DAILY 04/14/21 10/01/23 04/14/21 History alprazolam 0.5 mg tablet 0.25 - 0.5 mg PO BID PRN Anxiety 05/09/21 10/01/23 05/08/21 History albuterol sulfate 2.5 mg/3 mL 2.5 mg (3 mL) inhalation Q4H PRN 02/28/23 10/01/23 Unknown Rx (0.083 %) solution for nebulization shortness of breath or wheezing #75 mL potassium chloride 10 mEq 20 meq PO DAILY PRN 02/28/23 10/01/23 Unknown History capsule,extended release zolpidem 5 mg tablet 5 mg PO BEDTIME 02/28/23 10/01/23 Unknown History albuterol sulfate 90 mcg/actuation 2 puff inhalation Q4H PRN 03/05/23 10/01/23 Unknown Rx aerosol inhaler shortness of breath or wheezing #8.5 grams cefdinir 300 mg capsule 300 mg PO Q12H 10 days #20 caps 10/01/23 10/01/23 Unknown Rx furosemide 40 mg tablet (Lasix) 40 mg PO DAILY 10/01/23 10/01/23 Unknown History prednisone 20 mg tablet 20 mg PO DAILY #15 tabs 10/01/23 10/01/23 Unknown Rx Allergies Allergy/AdvReac Type Severity Reaction Status Date / Time amoxicillin AdvReac Intermediate mouth sores Verified 10/01/23 15:29 PFSH Acute 2 PFSH: Medical History (Updated 01/25/24 @ 20:24 by Dino Moore MD) Congestive heart failure Obesity hypoventilation syndrome Upper respiratory infection Left otitis media Open wound of right forearm Pneumonia DNR (do not resuscitate) discussion Right heart failure Complicated grief Volume overload state of heart Anasarca Anxiety Acute respiratory failure with hypoxia and hypercapnia Tobacco abuse counseling Hypertension Surgical History No significant past surgical history Family History Mother Obesity Social History Smoking and tobacco/nicotine status: current every day tobacco/nicotine user Alcohol intake: unknown Substance/Drug Use: unknown Vitals/I&O/Wt Last Vital Signs Temp 100.3 F H 01/25/24 16:26 Pulse 81 01/25/24 17:44 Resp 19 H 01/25/24 17:44 BP 117/82 01/25/24 17:30 Pulse Ox 98 01/25/24 17:44 O2 Del Method Nasal Cannula 01/25/24 17:44 O2 Flow Rate 4 01/25/24 17:44 Weight last 48 hrs Weight 116.573 kg Physical Exam 2 Narrative: General: Patient is in a stuporous state. Feverish. Head: Normocephalic. Atraumatic. EOM intact. Neck: No JVD. Cardiovascular: RRR. No gallops. No murmurs. 2+ pitting edema bilateral lower extremities to knees. Lungs: Breath sounds are markedly diminished. And expiratory wheezing is present. Very faint dependent crackles noted. On BiPAP. BiPAP noises auscultated as well. Skin: No jaundice. Chronic stasis changes of bilateral lower extremities. Abdomen: Normal bowel sounds, abdomen soft. Genito Urinary: Genital exam not performed since complaints not related. Rectal: Rectal exam not performed since no symptoms indicated blood loss. Extremities: No cyanosis or clubbing. Musculoskeletal: 5No swollen or erythematous joints. Neurological: No myoclonus. Patient is in a stuporous state. Data 01/25/24 16:50 01/25/24 16:50 Micro: Microbiology 01/25/24 16:53 Blood Culture - Preliminary Blood SPECIMEN COLLECTED 01/25/24 16:50 Blood Culture - Preliminary Blood SPECIMEN COLLECTED A&P Assessment and plan (1) Acute on chronic respiratory failure with hypoxia and hypercapnia: Acute on chronic hypoxic hypercapnic respiratory failure requiring noninvasive mechanical ventilation Baseline oxygen requirement believed to be 3 L, although patient too stuporous to confirm Respiratory decompensation secondary to COPD and mild CHF exacerbation, suspect possibly triggered from Ambien Hold sedating medications including Ambien Reported nausea and vomiting with altered mentation, now with fever concerning for aspiration Chest x-ray reviewed, currently negative, does not rule out aspiration Will start empiric antibiotics given clinical scenario with ceftriaxone and azithromycin (QTc 447) Treat underlying COPD and CHF as described below (2) COPD (chronic obstructive pulmonary disease): Diffuse wheezing noted on exam Start scheduled IV steroids Breathing treatments Supportive care (3) Congestive heart failure: Acute on chronic heart failure with preserved ejection fraction Last echocardiogram from 05/10/2021 revealed LVEF of 65%, consider repeat echocardiogram Faint dependent crackles on exam accompanied with lower extremity pitting edema Hold oral Lasix, start IV Lasix Monitor electrolytes, she is currently hyperkalemic Strict I's and O's Daily weights Qualifiers: Heart failure chronicity: acute on chronic Heart failure type: u nspecified Qualified Code(s): I50.9 - Heart failure, unspecified (4) Hyperkalemia: Received Lasix in the emergency department Repeat electrolyte levels Hold potassium supplementation Telemetry monitoring (5) Transaminitis: Abdominal exam benign although she is altered AST>ALT, alk phos only mildly elevated, bilirubin normal Query congestive hepatopathy versus viral infection Avoid hepatotoxins Repeat liver function enzyme levels in a.m. (6) Depression: Hold oral medications due to stupor status (7) Tobacco abuse: Family reports she continues to smoke, despite chronic respiratory failure on oxygen She would benefit from cessation (8) Obesity: Would benefit from weight loss (9) Acute kidney failure: Admission creatinine 1.4, baseline around 1 Avoid nephrotoxins Trending labs Strict I's and O's Plan DVT prophylaxis: Lovenox Attestations 2 Medical Necessity Statement*: Patient presents with acute on chronic respiratory failure requiring noninvasive mechanical ventilation secondary to COPD, CHF, and medication side effect with expected hospitalization not to cross 2 midnights for diuresis, steroids, breathing treatments and supportive care. Coding Level [facility] Code [facility] Acute on chronic respiratory failure with hypoxia and hypercapnia J96.21; J96.22 COPD (chronic obstructive pulmonary disease) J44.9 Congestive heart failure I50.9 Heart failure chronicity: acute on chronic Heart failure type: unspecified Hyperkalemia E87.5 Transaminitis R74.01 Depression F32.9 Tobacco abuse Z72.0 Obesity E66.9 Acute kidney failure N17.9
--- NOTE | 2024-01-25 21:16 | ECG_ITS ---
[facility] Test Date: 2024-01-25 Pat Name: Ramonita Balbuena Department: Room: ICU02 Gender: Female Sports Book Board Attendant: : 1960 Requested By: Dawna Werner Order Number: [id number] Navi MD: Moni Pepe M.D. Measurements Intervals [place] Rate: 69 P: 83 OR: 175 QRS: 64 QRSD: 106 T: 46 QT: 442 QTc: 477 Interpretive Statements SINUS RHYTHM ST DEVIATION AND MODERATE T-WAVE ABNORMALITY, CONSIDER ANTEROLATERAL ISCHEMIA [-0.1+ mV T-WAVE IN V3-V6] Compared to ECG 01/25/2024 16:25:43 Possible ischemia now present Sinus arrhythmia no longer present T-wave abnormality still present Electronically Signed On 01-26-2024 19:32:28 CDT by Moni Pepe M.D. [id number]
[2024-01-25] MEDS: enoxaparin 40 mg/0.4 mL Syringe SUBCUT (21:58)
[2024-01-25] MEDS: methylPREDNISolone sod succ 40 mg/mL INJ IVP (21:58)
[2024-01-25] MEDS: azithromycin 500 MG in sodium chloride 0.9% 250 ML 250 MG IV (21:58)
[2024-01-25] MEDS: cefTRIAXone 1,000 MG in sodium chloride 0.9% (plus) 50 ML 100 MG IV (21:59)
[2024-01-25 23:20] LABS: Anion Gap 13.1 (5-19); Blood Urea Nitrogen 26 mg/dL (8-23); Calcium 8.8 mg/dL (8.5-10.5); Carbon Dioxide 36 mmol/L (22-29); Chloride 95 mmol/L (98-107); Creatinine Clr Calc Pharmacy 54.8275; Glomerular Filtration Rate 37.7 mL/min (90-130); Glucose 122 mg/dL (65-115); Osmolality Calculated 294 mOsm/kg (285-295); Potassium 5.1 mmol/L (3.5-5.1); Sodium 139 mmol/L (136-145)
[2024-01-26] VITALS (89 sets, daily range): BP systolic 84–164; BP diastolic 57–101; PULSE 61–91; RESP 11–27; TEMP 35.7–37.2; O2SAT 82–100
--- NOTE | 2024-01-26 00:20 | ECG_ITS ---
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 Measurements Intervals [place] Rate: 68 P: 83 SC: 177 QRS: 68 QRSD: 100 T: -3 QT: 454 QTc: 485 Interpretive Statements SINUS RHYTHM ST DEVIATION AND MODERATE T-WAVE ABNORMALITY, CONSIDER ANTEROLATERAL ISCHEMIA [-0.1+ mV T-WAVE IN V3-V6] Compared to ECG 01/25/2024 21:16:39 No significant changes Electronically Signed On 01-26-2024 19:34:22 CDT by Moni Pepe M.D. [id number]
[2024-01-26 02:05] LABS: Troponin 5 6HR 34.16 ng/L (0-10); Troponin 5 6HR Delta 0.16 ng/L (0-12)
[2024-01-26] MEDS: methylPREDNISolone sod succ 40 mg/mL INJ IVP ×4 (03:00→20:31)
[2024-01-26] MEDS: ipratropium-albuterol 3 mL Neb INHALATION ×6 (03:23→23:12)
[2024-01-26] MEDS: FUROsemide 10 mg/mL SDV 10mL 60 MG IVP (05:26)
[2024-01-26 06:17] LABS: Eosinophils % 0.2 %; Hematocrit 39.7 % (36-47); Lymphocytes # 0.5 10^3/uL (0.8-4.8); Lymphocytes % 9.5 %; Mean Corpuscular HGB Conc 29.7 g/dL (30-55); Mean Corpuscular Hemoglobin 30.6 pg (27-33); Mean Corpuscular Volume 102.8 fl (85-98); Mean Platelet Volume 11.6 fL (7.4-10.4); Monocytes # 0.2 10^3/uL (0.2-0.9); Monocytes % 3.8 %; Neutrophils # 4.77 10^3/uL (1.8-7.7); Neutrophils % 85.6 %; Nucleated Red Blood Cells % 0 %; Platelet Count 147 10^3/cmm (157-399); Red Blood Count 3.86 10^6/uL (3.85-5.65); Red Cell Distribution Width 15.9 % (12.1-15.1); White Blood Count 5.57 10^3/uL (3.29-11.43)
[2024-01-26 06:41] LABS: Albumin Level 3.4 g/dL (3.5-5.2); Alkaline Phosphatase 147 U/L (35-105); Blood Urea Nitrogen 29 mg/dL (8-23); Calcium 9.1 mg/dL (8.5-10.5); Carbon Dioxide 38 mmol/L (22-29); Chloride 95 mmol/L (98-107); Globulin 3.3 g/dL (1.3-4.6); Glomerular Filtration Rate 41.1 mL/min (90-130); Glucose 132 mg/dL (65-115); Magnesium 2.1 mg/dL (1.7-2.3); Osmolality Calculated 298 mOsm/kg (285-295); Phosphorus 3.4 mg/dL (2.5-4.5); Sodium 140 mmol/L (136-145); Total Bilirubin 0.7 mg/dL (0.15-1.2); Total Protein 6.7 g/dL (6.6-8.7)
[2024-01-26 06:42] LABS: Creatinine Clr Calc Pharmacy 58.8843
[2024-01-26 06:43] LABS: Anion Gap 11.9 (5-19); Potassium 4.9 mmol/L (3.5-5.1)
[2024-01-26 07:06] LABS: Alanine Aminotransferase 1621 U/L (0-33)
[2024-01-26 07:07] LABS: Aspartate Amino Transferase 3096 U/L (0-32)
[2024-01-26] MEDS: budesonide 0.5 mg/2 mL Neb INHALATION ×2 (07:34→20:01)
--- NOTE | 2024-01-26 07:41 | PC.PHAR ---
Addendum entered by Keila Montes 01/26/24 08:07: MEDICATIONS VERIFIED BY LAST FILLED AND DAYS SUPPLY WITH MOISES AT [facility] Original Note: UNABLE TO VERIFY MEDS AT THIS TIME- PT IS ALTERED WAITING TO SPEAK TO PTS DAUGHTER
--- NOTE | 2024-01-26 12:00 | P.PN_ITS ---
Subjective 2 Subjective: More awake and alert today. Able to answer questions. Denies pain and reports feeling well. No other overnight events. Medications: Reviewed: Yes Vitals/I&O/Wt Last Vital Signs Temp 98.4 F 01/26/24 08:00 Pulse 78 01/26/24 11:00 Resp 12 01/26/24 11:00 BP 122/72 01/26/24 11:00 Pulse Ox 93 01/26/24 11:00 O2 Del Method Nasal Cannula 01/26/24 11:00 O2 Flow Rate 3 01/26/24 11:00 FiO2 30 01/26/24 07:38 01/25/24 01/26/24 01/26/24 22:59 06:59 14:59 Intake Total 0 / 0 300 / 300 300 / 300 Output Total 300 / 300 3000 / 3300 1999 / 1999 Balance -300 / -300 -2700 / -3000 -1700 / -1700 Weight last 48 hrs Weight 272 lb 12.8 oz Weight 272 lb 12.8 oz Weight 274 lb 1.6 oz Weight 257 lb Physical Exam 2 Narrative: General: Cooperative patient in no apparent distress. Well developed. HEENT: Normocephalic, Atraumatic. External ears normal. Nasal passages patent without drainage. MMM. Heart: RRR. Resp: LCTA. No respiratory distress, no use of accessory muscles. Abd: Soft, non-tender. Non-distended. Extremities: No edema. Skin: No rash or lesions on exposed areas. Neuro: No focal motor or sensory loss. Data 01/26/24 05:40 01/26/24 05:40 Micro: Microbiology 01/25/24 16:53 Blood Culture - Preliminary Blood SPECIMEN COLLECTED 01/25/24 16:50 Blood Culture - Preliminary Blood SPECIMEN COLLECTED A&P Assessment and plan (1) Acute on chronic respiratory failure with hypoxia and hypercapnia: (2) COPD (chronic obstructive pulmonary disease): (3) Congestive heart failure: Qualifiers: Heart failure chronicity: acute on chronic Heart failure type: u nspecified Qualified Code(s): I50.9 - Heart failure, unspecified (4) Hyperkalemia: Resolved. (5) Transaminitis: (6) Depression: (7) Tobacco abuse: (8) Obesity: (9) Acute kidney failure: Plan PLAN FOR TODAY 64-year-old female admitted for altered mental status, acute on chronic respiratory failure with hypoxia and hypercapnia, severe transaminitis, acute kidney failure. Continue close inpatient monitoring. Transaminitis worsened overnight. AST is over 3000, ALT 1621. CRP was noted to be 34.3. She also had lymphopenia. Upon questioning, she does endorse having multiple tick bites approximately 2 weeks ago. With this history I will check a tick panel. Will switch azithromycin to doxycycline to cover. Continue Rocephin. Her mental status has improved. She is able to converse and is oriented. She is currently on her baseline oxygen supplement and sats are upper 90's. Discussed medication concerns, specifically regarding the Ambien. She denies abuse or misuse of the medication. She reports that she was unable to get her Ambien filled, and her PCP told her to use the alprazolam in place of the Ambien. She says this is why half of her bottle of Ambien was gone. Will continue IV steroids, O2 protocol, RAAT. Duonebs q6h as needed. Creatinine at 1.3 this morning, down from 1.4 Will consider rechecking Echo. She did have good diuresis overnight. Recheck a.m. labs. Will restart home medications for chronic illnesses when appropriate. Code Status: Full Code IVF: None DVT PPx: Lovenox GI PPx: None ABx: Rocephin, doxycycline Diet: Cardiac Discharge plan: Home when appropriate Attestations 2 Medical Necessity Statement*: Will need continued inpatient management for respiratory failure, worsening transaminitis, IV diuresis, cultures and IV antibiotics. Coding Level of Care Code Critical Care >/= 30 minutes Critical care time (in minutes): 36 The high probability of a clinically significant, sudden or life threatening deterioration, as referenced in this documentation, required my full and direct attention, intervention and personal management. The critical care time shown is in addition to time spent performing any reported separately billable procedures and includes the following: [x] Data and vital sign review and interpretation [x ] Patient assessment, examination and intervention [x] Medication orders and management [x] Patient/Family updates as able [x] Care Coordination and Documentation. Diagnoses Acute on chronic respiratory failure with hypoxia and hypercapnia J96.21; J96.22 COPD (chronic obstructive pulmonary disease) J44.9 Congestive heart failure I50.9 Heart failure chronicity: acute on chronic Heart failure type: unspecified Hyperkalemia E87.5 Transaminitis R74.01 Depression F32.9 Tobacco abuse Z72.0 Obesity E66.9 Acute kidney failure N17.9
[2024-01-26] MEDS: doxycycline 100 MG in sodium chloride 0.9% (plus) 100 ML IV ×2 (12:10→20:30)
--- NOTE | 2024-01-26 13:06 | PC.NURSE ---
Daughter, Keila Moreno, here. She stated her mother and grandmother live together near her. She stated: My mother has a history of abusing Ambien. My Grandmother has been sharing her Meloxicam with my mother and the Gabapentin my mother took was from her Aunt.
--- NOTE | 2024-01-26 13:54 | PC.NURSE ---
Pt crying asking when she can go home. Her daughter and Mother at bedside. Reiterated about her Liver enzyme levels, tick panel not resulted yet, and her being hypoxic at home. Also discussed with pt and mother that taking prescribed medications that are not prescribed to you is drug abuse. Taking more of your own medications than prescribed is drug abuse. Certain mediations can depress your respiratory drive. And physicians when prescribing take into account drug interactions interactions, so how do you know it is safe to take other medications? Mother and patient verbalized understanding. Keila, patient's daughter expressed appreciation that someone besides her was having this conversation with her elderly female family.
--- NOTE | 2024-01-26 19:10 | PC.NURSE ---
Shift summary: Pt rested in bed throughout the shift mostly with her eyes closed. This morning her answers to orientation questions were delayed, Her thought processes slow. They have improved as the day progressed. She was started on doxycycline IV today. That IV site infiltrated, it was tender and erythema present. Ice pack applied. Per pt that helped a great deal. Site no longer reddened or raised. Sinus rhythm noted on monitor. VSS Afebrile. She ate well at breakfast and lunch, she was too drowsy at dinner. Her daughter and mother in to visit her today, She stayed alert throughout the visit. Her plan of care, transaminitis, and medication abuse discussed at length with all. She had 3300 ml urine output today. No BM noted.
[2024-01-26] MEDS: cefTRIAXone 1,000 MG in sodium chloride 0.9% (plus) 50 ML 100 MG IV (20:31)
[2024-01-26] MEDS: enoxaparin 40 mg/0.4 mL Syringe SUBCUT (20:31)
[2024-01-27] VITALS (13 sets, daily range): BP systolic 119–138; BP diastolic 62–68; PULSE 68–85; RESP 11–20; TEMP 36.7–36.9; O2SAT 91–98
[2024-01-27] MEDS: methylPREDNISolone sod succ 40 mg/mL INJ IVP ×2 (02:15→08:53)
[2024-01-27] MEDS: ipratropium-albuterol 3 mL Neb INHALATION ×2 (03:21→08:09)
[2024-01-27] MEDS: FUROsemide 10 mg/mL SDV 10mL 60 MG IVP (04:59)
[2024-01-27 05:16] LABS: Hematocrit 41.9 % (36-47); Lymphocytes # 0.5 10^3/uL (0.8-4.8); Mean Corpuscular HGB Conc 29.8 g/dL (30-55); Mean Corpuscular Hemoglobin 30.6 pg (27-33); Mean Corpuscular Volume 102.4 fl (85-98); Mean Platelet Volume 11.1 fL (7.4-10.4); Monocytes # 0.3 10^3/uL (0.2-0.9); Monocytes % 4.2 %; Neutrophils # 5.14 10^3/uL (1.8-7.7); Neutrophils % 87.1 %; Nucleated Red Blood Cells % 0 %; Platelet Count 199 10^3/cmm (157-399); Red Blood Count 4.09 10^6/uL (3.85-5.65)
[2024-01-27 05:52] LABS: Albumin Level 3.4 g/dL (3.5-5.2); Alkaline Phosphatase 130 U/L (35-105); Blood Urea Nitrogen 32 mg/dL (8-23); C Reactive Protein 27.1 mg/L (0.0-4.9); Carbon Dioxide 39 mmol/L (22-29); Chloride 94 mmol/L (98-107); Globulin 3.2 g/dL (1.3-4.6); Glomerular Filtration Rate 55.6 mL/min (90-130); Glucose 129 mg/dL (65-115); Osmolality Calculated 305 mOsm/kg (285-295); Sodium 143 mmol/L (136-145); Thyroid Stimulating Hormone 1.28 uIU/mL (0.27-4.20); Total Bilirubin 0.8 mg/dL (0.15-1.2); Total Protein 6.6 g/dL (6.6-8.7)
[2024-01-27 06:03] LABS: Alanine Aminotransferase 1062 U/L (0-33)
[2024-01-27 06:05] LABS: Aspartate Amino Transferase 731 U/L (0-32)
[2024-01-27] MEDS: budesonide 0.5 mg/2 mL Neb INHALATION (08:09)
--- NOTE | 2024-01-27 08:13 | P.PN_ITS ---
Vitals/I&O/Wt Last Vital Signs Temp 98.4 F 01/27/24 07:38 Pulse 84 01/27/24 08:00 Resp 11 L 01/27/24 08:00 BP 119/64 01/27/24 06:00 Pulse Ox 94 01/27/24 08:00 O2 Del Method BiPAP 01/27/24 08:00 O2 Flow Rate 3 01/26/24 20:00 FiO2 30 01/27/24 08:00 01/26/24 01/27/24 01/27/24 22:59 06:59 14:59 Intake Total 250 / 800 Output Total 1300 / 3300 1175 / 4475 Balance -1050 / -2500 -1175 / -3675 Weight last 48 hrs Weight 268 lb 8 oz Weight 272 lb 12.8 oz Weight 272 lb 12.8 oz Weight 274 lb 1.6 oz Weight 257 lb Physical Exam 2 Narrative: General: Cooperative patient in no apparent distress. Well developed. HEENT: Normocephalic, Atraumatic. External ears normal. Nasal passages patent without drainage. MMM. Heart: RRR. Resp: LCTA. No respiratory distress, no use of accessory muscles. Abd: Soft, non-tender. Non-distended. Extremities: No edema. Skin: No rash or lesions on exposed areas. Neuro: No focal motor or sensory loss. Data 01/27/24 04:00 01/27/24 04:00 Micro: Microbiology 01/25/24 16:53 Blood Culture - Preliminary Blood NEGATIVE TO DATE 01/25/24 16:50 Blood Culture - Preliminary Blood NEGATIVE TO DATE A&P Assessment and plan (1) Acute on chronic respiratory failure with hypoxia and hypercapnia: (2) COPD (chronic obstructive pulmonary disease): (3) Congestive heart failure: Qualifiers: Heart failure chronicity: acute on chronic Heart failure type: u nspecified Qualified Code(s): I50.9 - Heart failure, unspecified (4) Hyperkalemia: Resolved. (5) Transaminitis: (6) Depression: (7) Tobacco abuse: (8) Obesity: (9) Acute kidney failure: Plan PLAN FOR TODAY 64-year-old female admitted for altered mental status, acute on chronic respiratory failure with hypoxia and hypercapnia, severe transaminitis, acute kidney failure. Continue close inpatient monitoring. Transaminitis worsened overnight. AST is over 3000, ALT 1621. CRP was noted to be 34.3. She also had lymphopenia. Upon questioning, she does endorse having multiple tick bites approximately 2 weeks ago. With this history I will check a tick panel. Will switch azithromycin to doxycycline to cover. Continue Rocephin. Her mental status has improved. She is able to converse and is oriented. She is currently on her baseline oxygen supplement and sats are upper 90's. Discussed medication concerns, specifically regarding the Ambien. She denies abuse or misuse of the medication. She reports that she was unable to get her Ambien filled, and her PCP told her to use the alprazolam in place of the Ambien. She says this is why half of her bottle of Ambien was gone. Will continue IV steroids, O2 protocol, RAAT. Duonebs q6h as needed. Creatinine at 1.3 this morning, down from 1.4 Will consider rechecking Echo. She did have good diuresis overnight. Recheck a.m. labs. Will restart home medications for chronic illnesses when appropriate. Code Status: Full Code IVF: None DVT PPx: Lovenox GI PPx: None ABx: Rocephin, doxycycline Diet: Cardiac Discharge plan: Home when appropriate Coding Level of Care Code Acute Code for Chg Fwd Diagnoses Acute on chronic respiratory failure with hypoxia and hypercapnia J96.21; J96.22 COPD (chronic obstructive pulmonary disease) J44.9 Congestive heart failure I50.9 Heart failure chronicity: acute on chronic Heart failure type: unspecified Hyperkalemia E87.5 Transaminitis R74.01 Depression F32.9 Tobacco abuse Z72.0 Obesity E66.9 Acute kidney failure N17.9
[2024-01-27] MEDS: doxycycline 100 MG in sodium chloride 0.9% (plus) 100 ML IV (08:53)
--- NOTE | 2024-01-27 09:05 | P.DS_ITS ---
Discharge Providers Date of Admission: 01/25/24 19:06 Date of Discharge: January 27, 2024 Attending Provider at Admission: Dino Moore MD Attending Provider at Discharge: Chad Johnson DO Primary Care Provider: Rafa Quintero MD Diagnoses at Discharge Discharge Diagnosis (1) Acute on chronic respiratory failure with hypoxia and hypercapnia: Status: Resolved (2) COPD (chronic obstructive pulmonary disease): Status: Acute (3) Congestive heart failure: Status: Acute Qualifiers: Heart failure chronicity: acute on chronic Heart failure type: unspecified Qualified Code(s): I50.9 - Heart failure, unspecified (4) Hyperkalemia: Status: Resolved (5) Transaminitis: Status: Acute (6) Depression: Status: Acute (7) Tobacco abuse: Status: Acute (8) Obesity: Status: Acute (9) Acute kidney failure: Status: Resolved Reason for Visit Reason for Visit: LETHARGY; HYPOXIA Brief History: Ramonita Balbuena is a 64 year old female heart failure with preserved ejection fraction, COPD with chronic hypoxic respiratory failure with 3 L baseline, obesity hypoventilation syndrome, tobacco use disorder, obesity, depression, anxiety, insomnia, and multiple other comorbidities who presents emergency department with lethargy. Upon assessment, patient was very lethargic and disoriented. She could not provide any history. On the previous day, she had attended a birthday democrat for her mother. Patient does live with her mother, and her mother found her in an altered state. She was unable to arouse her. She was noted to be lying in emesis, and she was not wearing her supplemental oxygen. She is normally on 3 L at home. Hospital Course Hospital Course In the emergency department, patient was found to have combined respiratory failure with hypoxia and hypercapnia. She was placed on BiPAP. Family reports she continues to smoke cigarettes. Patient was also found to have ambien. Her daughter thought she had been taken off this medication. There is concern that she may have taken additional Ambien based upon the number of pills available in her prescription bottle. On day 2 of her hospital stay, she was more alert and oriented after receiving IVF's. Patient had endorsed a couple of recent tick bites that were removed 1-2 weeks ago. She was noted to have severe elevation of her LFT's, low platelets and leukopenia. She was started on broad-spectrum antibiotics, initially with Rocephin and azithromycin that was switched that was switched to Rocephin and Doxycycline. She was also started on steroids for presumed COPD exacerbation. She initially was placed on BiPAP, and her respiratory status did improve overnight. There was concern that she could also be experiencing an exacerbation of her heart failure, and she was started on IV diuresis. Tick panel was drawn. Her labs continue to improve throughout the course of her hospitalization, and her LFTs had dropped considerably from a high of 3000 AST. She was discharged in stable and improved condition to home, with follow up with PCP later this week. She had appointments already arranged, and she was sent ho id with continued course of doxycycline and cefdinir. A 5-day course of prednisone was sent with the patient as well. Physical Exam Narrative: General: Cooperative patient in no apparent distress. Well developed. HEENT: Normocephalic, Atraumatic. External ears normal. Nasal passages patent without drainage. MMM. Heart: RRR. Resp: LCTA. No respiratory distress, no use of accessory muscles. Abd: Soft, non-tender. Non-distended. Extremities: No edema. Skin: No rash or lesions on exposed areas. Neuro: No focal motor or sensory loss. Discharge Data Studies Completed and Pending Completed Studies During Hospitalization Category Date Time Status XR chest 1V [id number] Stat Exams 01/25/24 16:28 Completed Pending at discharge Category Date Time Status Blood Culture Stat Lab 01/25/24 16:53 Results Tick Panel Routine Lab 01/26/24 05:40 Received Radiology Impressions Chest X-Ray 01/25/24 16:28 IMPRESSION: 1. No acute cardiopulmonary abnormality. Laboratory Results WBC 5.90 10^3/uL (3.29-11.43) 01/27/24 04:00 Corrected WBC Cancelled 01/26/24 04:05 RBC 4.09 10^6/uL (3.85-5.65) 01/27/24 04:00 Hgb 12.50 g/dL (11.27-16.99) 01/27/24 04:00 Hct 41.9 % (36-47) 01/27/24 04:00 MCV 102.4 fl (85-98) H 01/27/24 04:00 MCH 30.6 pg (27-33) 01/27/24 04:00 MCHC 29.8 g/dL (30-55) L 01/27/24 04:00 RDW 16.0 % (12.1-15.1) H 01/27/24 04:00 Plt Count 199 10^3/cmm (157-399) D 01/27/24 04:00 MPV 11.1 fL (7.4-10.4) H 01/27/24 04:00 Gran % Cancelled 01/26/24 04:05 Neut % (Auto) 87.1 % 01/27/24 04:00 Lymph % (Auto) 8.0 % 01/27/24 04:00 [place] % (Auto) 4.2 % 01/27/24 04:00 Eos % (Auto) 0.0 % 01/27/24 04:00 Baso % (Auto) 0.0 % 01/27/24 04:00 Neut # (Auto) 5.14 10^3/uL (1.8-7.7) 01/27/24 04:00 Lymph # (Auto) 0.5 10^3/uL (0.8-4.8) L 01/27/24 04:00 [place] # (Auto) 0.3 10^3/uL (0.2-0.9) 01/27/24 04:00 Eos # (Auto) 0.0 10^3/uL (0.0-0.8) 01/27/24 04:00 Baso # (Auto) 0.0 10^3/uL (0.0-0.1) 01/27/24 04:00 Absolute Gran (auto) Cancelled 01/26/24 04:05 Nucleated RBC % (auto) 0 % 01/27/24 04:00 Nucleated RBCs # 0.0 /100WBC 01/27/24 04:00 Specimen Type Arterial 01/25/24 17:59 Sample Site Radial, right 01/25/24 17:59 ABG pH 7.33 (7.35-7.45) L 01/25/24 17:59 ABG pCO2 72.1 mmHg (35-45) H* 01/25/24 17:59 ABG pO2 75.2 mmHg (80.0-100.0) L 01/25/24 17:59 ABG PO2/FiO2 Ratio 0 01/25/24 17:59 ABG HCO3 37.9 mmol/L (22-26) H 01/25/24 17:59 ABG O2 Saturation 92.7 01/25/24 17:59 ABG Base Excess 9.4 mmol/L (-2.0-2.0) H 01/25/24 17:59 Ismael Test Pos 01/25/24 17:59 A-a O2 Gradient 12.2 mmHg (5-10) H 01/25/24 17:59 Hematocrit 36.5 % (37-47) L 01/25/24 17:59 Hgb O2 Saturation 89.6 % (95-100) L 01/25/24 17:59 Carboxyhemoglobin 3.0 %THgb (0.4-20.1) 01/25/24 17:59 Methemoglobin 0.3 % (0.4-1.5) L 01/25/24 17:59 Total Hemoglobin 11.9 g/dL (12-16) L 01/25/24 17:59 Sodium 139.0 mmol/L (131-143) 01/25/24 17:59 Potassium 5.8 mmol/L (3.5-5.0) H 01/25/24 17:59 Glucose 100.0 mg/dL (70-115) 01/25/24 17:59 Ionized Calcium 1.2 mmol/L (1.1-1.4) 01/25/24 17:59 O2 Delivery Device Nc 01/25/24 17:59 O2 Liters/Min 3.0 % 01/25/24 17:59 FiO2 36.0 % 01/25/24 17:59 Scientific Informatics Project Leader ID [id number] 01/25/24 17:59 Sodium 143 mmol/L (136-145) 01/27/24 04:00 Potassium 4.0 mmol/L (3.5-5.1) 01/27/24 04:00 Chloride 94 mmol/L (98-107) L 01/27/24 04:00 Carbon Dioxide 39 mmol/L (22-29) H 01/27/24 04:00 Anion Gap 14.0 (5-19) 01/27/24 04:00 BUN 32 mg/dL (8-23) H 01/27/24 04:00 Creatinine 1.0 mg/dL (0.5-0.9) H 01/27/24 04:00 GFR Calculation 55.6 mL/min (90-130) L 01/27/24 04:00 Glucose 129 mg/dL (65-115) H 01/27/24 04:00 Calculated Osmolality 305 mOsm/kg (285-295) H 01/27/24 04:00 Lactic Acid 1.2 mmol/L (0.5-2.2) 01/25/24 16:50 Calcium 9.0 mg/dL (8.5-10.5) 01/27/24 04:00 Phosphorus 3.4 mg/dL (2.5-4.5) 01/26/24 05:40 Magnesium 2.0 mg/dL (1.7-2.3) 01/27/24 04:00 Total Bilirubin 0.8 mg/dL (0.15-1.2) 01/27/24 04:00 AST 731 U/L (0-32) H 01/27/24 04:00 ALT 1062 U/L (0-33) H 01/27/24 04:00 Alkaline Phosphatase 130 U/L (35-105) H 01/27/24 04:00 Troponin T Baseline 34 ng/L (0-10) H 01/25/24 16:50 Troponin T 120 Minute 35.31 ng/L (0-10) H 01/25/24 18:58 Delta Troponin T 1.31 ABS# (0-10) 01/25/24 18:58 Troponin T Hi Sens 6Hr 34.16 ng/L (0-10) H 01/26/24 01:17 Troponin T Hi Sens 6Hr Delta 0.16 ng/L (0-12) 01/26/24 01:17 C-Reactive Protein 27.1 mg/L (0.0-4.9) H 01/27/24 04:00 NT-Pro-B Natriuret Pep 98233 pg/mL (0-125) H 01/25/24 16:50 Total Protein 6.6 g/dL (6.6-8.7) 01/27/24 04:00 Albumin 3.4 g/dL (3.5-5.2) L 01/27/24 04:00 Globulin 3.2 g/dL (1.3-4.6) 01/27/24 04:00 TSH 1.28 uIU/mL (0.27-4.20) 01/27/24 04:00 Influenza Type A Ag negative (Negative) 01/25/24 18:21 Influenza Type B Ag negative (Negative) 01/25/24 18:21 SARS-CoV-2 Ag (Rapid) negative (Negative) 01/25/24 18:21 Vitals Last Vital Signs Temp 98.4 F 01/27/24 07:38 Pulse 85 01/27/24 08:13 Resp 11 L 01/27/24 08:00 BP 119/64 01/27/24 06:00 Pulse Ox 94 01/27/24 08:13 O2 Del Method BiPAP 01/27/24 08:00 O2 Flow Rate 3 01/26/24 20:00 FiO2 30 01/27/24 08:13 Discharge Plan Discharge Patient Disposition: Home Condition: Stable Prescriptions: New doxycycline hyclate 100 mg tablet 100 mg PO BID 10 Days Qty: 20 0RF cefdinir 300 mg capsule 300 mg PO BID 8 Days Qty: 16 0RF prednisone 20 mg tablet 40 mg PO DAILY 5 Days Qty: 10 0RF Continued albuterol sulfate 90 mcg/actuation HFA aerosol inhaler 2 puff inhalation Q4H PRN (Reason: shortness of breath or wheezing) Qty: 8.5 3RF zolpidem 5 mg tablet 10 mg PO BEDTIME potassium chloride 10 mEq capsule, extended release 20 meq PO DAILY albuterol sulfate 2.5 mg /3 mL (0.083 %) solution for nebulization 2.5 mg inhalation Q4H PRN (Reason: shortness of breath or wheezing) Qty: 75 0RF citalopram 40 mg Tablet 40 mg PO DAILY alprazolam 0.5 mg Tablet 0.5 mg PO TID PRN (Reason: Anxiety) furosemide [Lasix] 40 mg tablet 40 mg PO DAILY Discharge Orders: Discharge Order (Routine); Ordered 01/27/24 Ordered By: Chad Johnson Referrals: Chad Johnson DO [Physician] - 01/29/24 3:00 pm (Scheduled with Dr. Johnson on 01/28 @ 3pm in [place]. ) Rafa Quintero MD [Primary Care Provider] - Discharge Diet: Usual diet Discharge Activity: Resume usual activity Patient Instructions: Doxycycline (By mouth) (Acticlate, Adoxa, Avidoxy, Monodox, Doryx), Prednisone (By mouth), Cefdinir (By mouth), Opioid Safety Discharge Attestations Time Spent in Discharge Care*: less than 30 min Specific Discharge Activities: educating patient, educating and/or supporting family/caregiver, discussing with pcp/other providers, discussing with nurse case management/social workers/dc planners, documenting/other paperwork and evaluating patient/reviewing data Quality Metrics Clinical Quality Measures [ No reported AMI, CVA or VTE this stay] Coding Level of Care Code Acute Code for Chg Fwd Diagnoses Acute on chronic respiratory failure with hypoxia and hypercapnia J96.21; J96.22 COPD (chronic obstructive pulmonary disease) J44.9 Congestive heart failure I50.9 Heart failure chronicity: acute on chronic Heart failure type: unspecified Hyperkalemia E87.5 Transaminitis R74.01 Depression F32.9 Tobacco abuse Z72.0 Obesity E66.9 Acute kidney failure N17.9
--- NOTE | 2024-01-27 10:30 | PC.NURSE ---
Pt IVs, and cath removed. Pt dressed. Pt ready for discharge. Daughter, Keila, was here. Pt needed her home O2 for discharge and ride home. Daughter to bring that back today for discharge.
[2024-01-27 11:21] LABS: Lyme AB Screen <0.90 index
--- NOTE | 2024-01-27 13:06 | PC.NURSE ---
Daughter here with pt's home O2. Prescriptions picked up at main campus pharmacy. Discharge instructions including appointments, medications discussed. Pt discharged home with both daughters.
--- NOTE | 2024-01-27 13:20 | PC.NURSE ---
Keila, Pt's daughter brought in an empty O2 tank for patient to use. Full tank available in car. Daughter stated she knew it was empty when she brought it in she figured it would be ok. Both daughters made zero attempt to assist their mother into vehicle. The vehicle was high. They just watched nurse clive Peoples lift and assist larger patient into vehicle. Pt stated they do not want me to go home.
[2024-01-30 17:30] LABS: E. Chaffeensis AB IGG <1:64; E. Chaffeensis AB IGM <1:20
[2024-01-30 19:11] LABS: RMSF IGG NOT DETECTED; RMSF IGM NOT DETECTED
== END 2024-01-27 13:05 | disposition home or self-care (01) | DRG 189 ==
LOC: ER 19:19 → ICU 20:02
PROVIDERS: Admitting Provider Internal Medicine; Emergency Provider Emergency Medicine; PCP Family Medicine; Visit Provider Family Medicine
DX: J96.22 Acute and chronic respiratory failure with hypercapnia (principal); I50.33 Acute on chronic diastolic (congestive) heart failure; J44.1 Chronic obstructive pulmonary disease with (acute) exacerbation; E66.2 Morbid (severe) obesity with alveolar hypoventilation; Z68.41 Body mass index [BMI] 40.0-44.9, adult; N17.9 Acute kidney failure, unspecified; J96.21 Acute and chronic respiratory failure with hypoxia; I11.0 Hypertensive heart disease with heart failure; E87.5 Hyperkalemia; R74.01 Elevation of levels of liver transaminase levels; F32.A Depression, unspecified; Z72.0 Tobacco use; Z99.81 Dependence on supplemental oxygen
CPT/HCPCS: 36415; 36600; 71045; 80048; 80051; 80053; 82330; 82805; 83605; 83735; 83880; 84100; 84443; 84484; 85025; 86140; 86618; 86666; 86757; 87040; 87426; 87804; 93005; 94640; 94660; 94664; 96372; 96376; G0378; J0456; J0696; J1650; J1940; J2919; J3490; J7050; J7613; J7626

== ENCOUNTER → 2024-02-05 10:28 | Outpatient (BNVA) | payer MEDICARE, SELFPAY | PROVIDERS: PCP Family Medicine; Visit Provider Family Medicine | DX: J43.9 Emphysema, unspecified (principal) | CPT/HCPCS: 80053; 80061; 84443; 85025 ==

== ENCOUNTER 2025-06-29 16:00 | Inpatient (IN) | payer MEDICARE, SELFPAY ==
[2025-06-29] VITALS (16 sets, daily range): BP systolic 129–160; BP diastolic 69–100; PULSE 65–84; RESP 16–22; TEMP 37.2; O2SAT 89–97; BMI 51.7
--- NOTE | 2025-06-29 16:06 | ED_ITS ---
HPI - Altered Mental Status 2 General: Chief Complaint: Altered Mental Status Stated Complaint: AMS Time Seen by Provider: 06/29/25 16:05 History of Present Illness: 65-year-old female history of chronic hy poxemic respiratory failure, PTSD, insomnia, obesity, COPD, CHF, presented emergency department with unresponsiveness, patient was reportedly only alert to painful stimuli on EMS arrival was given Narcan, patient herself is able to tell me her name, she is unable to give me an appropriate history. I did speak with the patient's daughter Keila at [phone], daughter reports that she lives in the house next-door to the patient, the patient lives with her own mother but reports that the mother is in enabler, reports that the patient has accidentally overused her sleeping pills and sedatives in the past leading to a similar admission April of last year, she reports that the patient would be full code and would want all resuscitative measures necessary to protect/keep her alive including intubation if necessary. Related Data Previous Rx's ?Medication ?Instructions ?Recorded Oxygen concentrator #1 ea 09/06/24 albuterol sulfate 2.5 mg/3 mL 2.5 mg (3 mL) inhalation Q4H PRN 02/15/25 (0.083 %) solution for nebulization shortness of breat h or wheezing #75 mL citalopram 40 mg tablet 40 mg PO DAILY #90 tabs 0504/06 quetiapine 100 mg tablet (Seroquel) 200 mg (2 x 100 mg ) PO DAILY #60 02/15/25 tabs tiotropium bromide 18 mcg capsule 1 cap inhalation JOLENE LY #60 02/15/25 with inhalation device (Spiriva inhalations with HandiHaler) zolpidem 12.5 mg tablet,extended 12.5 mg PO DAILY #30 tabs 02/15/25 release,multiphase alprazolam 0.5 mg tablet 0.5 mg PO BID PRN Anxiety #6 0 tabs 05/10/25 prazosin 5 mg capsule See Rx Instructions .Route 0 05/12/25 .COMPLEX #30 caps albuterol sulfate 90 mcg/actuation See Rx Instructions .Route 06/02/25 aerosol inhaler (Ventolin HFA) .COMPLEX #18 grams Allergies Allergy/AdvReac Type Severity Reaction Status Date / Time amoxicillin AdvReac Intermediate mouth sores Verified 02/15/25 11:00 [facility] ED 2 [facility]: Medical History (Updated 06/29/25 @ 18:13 by Cecil Monae MD) Congestive heart failure Obesity hypoventilation syndrome Upper respiratory infection Left otitis media Open wound of right forearm Pneumonia DNR (do not resuscitate) discussion Right heart failure Complicated grief Volume overload state of heart Anasarca Anxiety Acute respiratory failure with hypoxia and hypercapnia Tobacco abuse counseling Hypertension Surgical History No significant past surgical history Family History Mother Obesity Hypertension Father Hypertension Heart attack, Onset Age: 78 . Social History Smoking and tobacco/nicotine status: never used tobacco/nicotine Second hand smoke exposure: No Alcohol intake: unknown Substance/Drug Use: unknown Adopted: No Caregiver/support person: Yes Lives independently: Yes Do you think of yourself as: Straight/Heterosexual Current gender identity: Female Female Reproductive History: Spontaneous abortions: No Physical Exam 2 Narrative: Gen: ANO x 1, lethargic but arousable to light touch, ill-appearing, morbidly obese HEENT: Normocephalic, atraumatic, no scleral icterus, external ears normal, moist mucous membranes, pupils midsize and reactive bilaterally Neck: Supple, full range of motion, no observable masses Lungs: Poor breath sounds bilaterally possibly secondary to body habitus, patient not tachypneic, saturating low normal on 3 L nasal cannula 90 to 92%, switched to BiPAP with improvement in oxygenation CV: Regular rate and rhythm, no murmur, no pitting edema to lower extremities bilaterally Abdomen: Soft, nondistended, nontender to palpation MSK: No joint swelling, FROM all 4 extremities Skin: No rashes, petechiae, lesions. Normal color per patient. Neuro: Patient lethargic, ANO x 1, arousable to light touch, protecting airway, withdraws to pain all 4 extremities, moving all 4 extremities spontaneously Psych: Appropriate for situation. Course 2 Reevaluation(s): Reevaluation #1: Patient reassessed, currently doing well on BiPAP 18/8 FiO2 28%, saturating 93%, she is now more awake, she is able to provide a limited history, she does not recall the events that led her to the ER, her chest x-ray shows a right medial lobe pneumonia I am concerned for possible aspiration given her risk factors for same and her altered mental status, plan for empiric coverage of community- acquired pneumonia with Flagyl for anaerobic coverage of possible aspiration, repeat blood gas pending to assess response to BiPAP although appears to be working effectively, will switch from arterial to venous given we have a reliable pulse oximetry, patient's clinical status is improving, and the arterial blood gas was difficult to obtain with patient moving and body habitus limiting ability to obtain, RT aware Time: 17:26 Reevaluation #2: Repeat blood gas with resolution of acidemia, pCO2 improving, patient clinically improving, will be admitted to ICU for monitoring Time: 18:17 Consultations: Consultation #1: Spoke with hospitalist Juaquin Brad, accepts patient for admission, will place patient inICU on low-level BiPAP for hypercapnia that is improving with treatment Time: 18:03 Vital Signs: Vital signs: Vital Signs Temperature 99.0 F 06/29/25 16:06 Pulse Rate 78 06/29/25 17:48 Respiratory Rate 20 H 06/29/25 17:48 Blood Pressure 156/89 06/29/25 17:48 Pulse Oximetry 89 L 06/29/25 17:48 Oxygen Delivery Me thod BiPAP 06/29/25 17:48 Oxygen Flow Rate 3 06/29/25 16:06 Fraction of Inspir ed Oxygen 32 06/29/25 17:26 MDM - Altered Mental Status Medical Decision Making 65-year-old female history of COPD/CHF, morbid obesity with suspected obesity hypoventilation syndrome/obstructive sleep apnea, chronic hypoxemic respiratory failure, on Filiberto diazepam's and Ambien chronically with history of misuse in the past per daughter, presenting with lethargy and suspected hypercapnia, initial blood gas showing relatively mild hypercapnia for patient's habitus with a pCO2 in the 70s and pH in the low 7 3 range, on BiPAP, plan to repeat ABG to assess for improvement or need for possible intubation if worsening, chest x-ray to assess for occult pneumonia or pulmonary edema, empirically treat for possible COPD component, reassess for disposition but would anticipate admission with level of care pending progression/response to treatment. Lab Data Labs showing mild anemia, no leukocytosis, mild hyperkalemia and CATERINA associated with hypomagnesemia noted 06/29/25 16:36 06/29/25 17:08 Radiology Impressions Chest X-Ray 06/29/25 16:12 IMPRESSION: 1. Medial right lower lung pneumonia. 2. Cardiomegaly. Laboratory Results WBC 6.48 10^3/uL (3.29-11.43) 06/29/25 16:36 RBC 3.73 10^6/uL (3.85-5.65) L 06/29/25 16:36 Hgb 11.00 g/dL (11.27-16.99) L 06/29/25 16:36 Hct 38.9 % (36-47) 06/29/25 16:36 MCV 104.3 fl (85-98) H 06/29/25 16:36 MCH 29.5 pg (27-33) 06/29/25 16:36 MCHC 28.3 g/dL (30-55) L 06/29/25 16:36 RDW 15.4 % (12.1-15.1) H 06/29/25 16:36 Plt Count 200 10^3/cmm (157-399) 06/29/25 16:36 MPV 10.1 fL (7.4-10.4) 06/29/25 16:36 Neut % (Auto) 82.5 % 06/29/25 16:36 Lymph % (Auto) 11.9 % 06/29/25 16:36 [place] % (Auto) 4.8 % 06/29/25 16:36 Eos % (Auto) 0.0 % 06/29/25 16:36 Baso % (Auto) 0.2 % 06/29/25 16:36 Neut # (Auto) 5.35 10^3/uL (1.8-7.7) 06/29/25 16:36 Lymph # (Auto) 0.8 10^3/uL (0.8-4.8) 06/29/25 16:36 [place] # (Auto) 0.3 10^3/uL (0.2-0.9) 06/29/25 16:36 Eos # (Auto) 0.0 10^3/uL (0.0-0.8) 06/29/25 16:36 Baso # (Auto) 0.0 10^3/uL (0.0-0.1) 06/29/25 16:36 Nucleated RBC % (auto) 0 % 06/29/25 16:36 Nucleated RBCs # 0.0 /100WBC 06/29/25 16:36 PT 13.20 SECONDS (12.1-14.9) 06/29/25 17:08 INR 0.94 (0.8-1.2) 06/29/25 17:08 Specimen Type Not specified 06/29/25 16:13 Sample Site left rad 06/29/25 16:13 ABG pH 7.34 (7.35-7.45) L 06/29/25 16:13 ABG pCO2 72.2 mmHg (35-45) H* 06/29/25 16:13 ABG pO2 60.6 mmHg (80.0-100.0) L 06/29/25 16:13 ABG PO2/FiO2 Ratio 189 06/29/25 16:13 ABG HCO3 34.2 mmol/L (22-26) H 06/29/25 16:13 ABG Base Excess 13.0 mmol/L (-2.0-2.0) H 06/29/25 16:13 Ismael Test pos 06/29/25 16:13 Hematocrit Not Reportable 06/29/25 16:13 Hgb O2 Saturation 83.5 % (95-100) L 06/29/25 16:13 Carboxyhemoglobin 8.9 %THgb (0.4-20.1) 06/29/25 16:13 Methemoglobin 0.0 % (0.4-1.5) L 06/29/25 16:13 Total Hemoglobin 11.1 g/dL (12-16) L 06/29/25 16:13 O2 Delivery Device nc 06/29/25 16:13 FiO2 32.0 % 06/29/25 16:13 Specimen Drawn By congi 06/29/25 16:13 Director Of Corporate Real Estate ID gc 06/29/25 16:13 Sodium 138 mmol/L (136-145) 06/29/25 17:08 Potassium 5.4 mmol/L (3.5-5.1) H 06/29/25 17:08 Chloride 95 mmol/L (98-107) L 06/29/25 17:08 Carbon Dioxide 33 mmol/L (22-29) H 06/29/25 17:08 Anion Gap 15.4 (5-19) 06/29/25 17:08 BUN 24 mg/dL (8-23) H 06/29/25 17:08 Creatinine 1.4 mg/dL (0.5-0.9) H 06/29/25 17:08 GFR Calculation 37.6 mL/min (90-130) L 06/29/25 17:08 Glucose 107 mg/dL (65-115) 06/29/25 17:08 POC Glucose 114 mg/dL (70-110) H 06/29/25 16:22 Calculated Osmolality 291 mOsm/kg (285-295) 06/29/25 17:08 Lactic Acid 1.1 mmol/L (0.5-2.2) 06/29/25 16:36 Calcium 8.6 mg/dL (8.5-10.5) 06/29/25 17:08 Magnesium 2.5 mg/dL (1.7-2.3) H 06/29/25 17:08 Total Bilirubin 0.4 mg/dL (0.15-1.2) 06/29/25 17:08 AST 15 U/L (0-32) 06/29/25 17:08 ALT 8 U/L (0-33) 06/29/25 17:08 Alkaline Phosphatase 148 U/L (35-105) H 06/29/25 17:08 Troponin T Baseline 33 ng/L (0-10) H 06/29/25 16:36 NT-Pro-B Natriuret Pep 3082 pg/mL (0-125) H 06/29/25 17:08 Total Protein 6.8 g/dL (6.6-8.7) 06/29/25 17:08 Albumin 3.8 g/dL (3.5-5.2) 06/29/25 17:08 Globulin 3.0 g/dL (1.3-4.6) 06/29/25 17:08 Influenza A (PCR) Negative (Negative) 06/29/25 16:22 Influenza Type B (PCR) Negative (Negative) 06/29/25 16:22 RSV (PCR) Negative (Negative) 06/29/25 16:22 SARS-CoV-2 (PCR) Negative (Negative) 06/29/25 16:22 All radiology interpretation(s) finalized by discharge ED provider radiology interpretation(s): Chest x-ray showing right lower lobe pneumonia EKG Data EKG 1: I personally reviewed and interpreted this EKG as follows: EKG interpretation date: 06/29/25 EKG interpretation time: 16:03 Interpretation: Sinus rhythm 84 bpm, no STEMI, no ectopy, normal axis, QTc 410ms Critical Care Time 2 Critical Care Time: Critical Care Time: Yes Total Critical Care Time: 31 Attestation: This case had a high probability of a clinically significant, sudden, or life threatening deterioration of this patient's condition which required my full and direct attention, intervention and personal management. Discharge Plan Discharge Patient Disposition: Admitted As Inpatient Clinical Impression: Pneumonia of right lower lobe due to infectious organism, Acute hypercapnic respiratory failure Encephalopathy Qualifiers: Encephalopathy type: unspecified encephalopathy Qualified Code(s): G93.40 - Encephalopathy, unspecified Condition: Fair Coding Level of Care Code ED Real Estate Services Administrator for Esther Carey
--- OUTSIDE RECORDS SUMMARY | 2025-06-29 16:09 | XMS_ITS | Patient Health Record ---
Author Organization [facility] Main Address [address] [place] [address] [place] [address] Care Team Providers Care Brake Shoe Rebuilder Name Role Phone LAURIE PEÑA Primary Care Provider Allergies Allergen (clinical drug ingredient) Drug/Non Drug Allergy documented on EMR Reaction Allergy Type Onset Date Status fluticasone Fluticasone Unknown Drug Allergy Act abebe Substance with penicillin structure and antibacterial mechanism of action (substance) Penicillins Unknown Drug Allergy Active Reason For Referral No Information Medications Medication SIG (Take, Route, Frequency, Duration) Notes Start Date End Date Status Citalopram Hydrobromide 40 MG 1 tablet Orally Once a day; Duration: 30 days Active ALPRAZolam 0.5 MG 1 tablet as needed O rally three times a day; Duration: 30 days 01/07/2024 Active Lasix 40 MG 1.5 tablet Orally On ce a day; Duration: 30 days 07/24/2020 Active Albuterol Sulfate HFA 108 (90 Base) MCG/ACT 1 puff as needed Inhalation every 4 hrs; Duration: 30 days 12/29/2023 Active Zolpidem Tartrate 5 MG 2 tablets at bedt opal Orally Once a day; Duration: 30 days 01/07/2024 Active Social History Tobacco Use: Social History Observation Description Date Details (start date - stop date) Current Smoker NA - NA Tobacco Use/Smoking Question Answer Notes Tobacco use: current every day smoker Alcohol Screen (Audit-C) Question Answer Notes Did you have a drink containing alcohol in the p ast year? No Points 0 Interpretation Negative PHQ-2 Question Answer Notes Little interest or pleasure in doing things? Angelica rly every day Feeling down, depressed, or hopeless? Nearly radha ry day Total Score 6 PHQ 9 Question Answer Notes Little interest or pleasure in doing things Dacia ral days Feeling down, depressed, or hopeless Several day s Trouble falling or staying asleep, or sleeping t oo much Not at all Feeling tired or having little energy Several da ys Poor appetite or overeating Several days Feeling bad about yourself, or that you are a failure, or have let yourself or your family down Several days Trouble concentrating on thi ngs, such as reading the newspaper or watching television Not at all Moving or speaking so slowly that other people could have noticed. Or the opposite being so fidgety or restless that you have been moving around a lot more than usual Several days Thoughts that you would be b milady off , or of hurting yourself in some way Not at all Total Score 6 Interpretation Mild Depression Problems Problem Type SNOMED Code ICD Code Onset Dates Problem Status W/U Status Risk Notes Problem Cardiomegaly (8302554) Cardiomegaly (I51.7) Active confirmed Problem Chronic obstructive pulmonary disease (88428376) Chronic obstructive pulmonary disease, unspecified (J44.9) Active confirmed Problem Peripheral venous insufficiency (43104905) Venous (peripheral) insufficiency (I87.2) Active confirmed Problem Pulmonary congestion (disorder) (05231962) Chest congestion (R09.89) Active confirmed Problem Tobacco user (450171165) Cigarette nicotine dependence without complication (F17.210) Active confirmed Problem General weakness (21488166) Weakness generalized (R53.1) Active confirmed Problem Acute exacerbation of chronic obstructive airways disease (898419094) COPD with acute exacerbation (J44.1) Active confirmed Problem Heart failure (22777450) Chronic congestive heart failure, unspecified heart failure type (I50.9) Active confirmed Problem Body mass index 40+ - severely obese (211097163) Body mass index [BMI] 40.0-44.9, adult (Z68.41) Active confirmed Problem Smoker (34437829) Smoker (F17.200) Active confi rmed Problem Generalized anxiety disorder (31423465) Generalized anxiety disorder (F41.1) 04/28/20 17 Active confirmed Evan-119 2830- Problem Primary insomnia (8562005) Primary insomnia (F51.01) 01/06/20 14 Active confirmed Evan-119 2830- Problem Localized edema (6558627) Localized edema (R60.0) Active confirmed Problem Morbid obesity (225388418) Morbid obesity (278.01) 04/18/20 15 Inactive confirmed Evan-119 2830- Problem Bronchitis (46668500) Bronchitis, not specified as acute or chronic (490) 05/07/20 12 Inactive confirmed Evan-119 2830- Problem Pain of ear (finding) (104894295) Otalgia, unspecified ear (H92.09) 01/01/20 16 Inactive confirmed Evan-119 2830- Problem Acute bronchitis (37100248) Acute bronchitis due to other specified organisms (J20.8) 08/23/20 16 Inactive confirmed Evan-119 2830- Problem Bronchitis (73404949) Bronchitis, not specified as acute or chronic (J40) 05/14/20 17 Inactive confirmed Evan-119 2830- Problem Stomatitis (96419593) Other forms of stomatitis (K12.1) 04/01/20 17 Inactive confirmed Evan-119 2830- Problem Unspecified menopausal and perimenopausal disorder (N95.9) 04/28/20 17 Inactive confirmed Evan-119 2830- Problem Screening for cardiovascular system disease (967778873) Encounter for screening for cardiovascular disorders (Z13.6) 08/20/20 16 Inactive confirmed Evan-119 2830- Problem 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 (F32.89) 04/01/20 17 Inactive confirmed Evan-119 2830- Problem Low risk (qualifier value) (371288015) Low Risk Level (D07) 01/01/20 18 Inactive confirmed Evan-119 2830- Problem Pedal edema (685887823) Pedal edema (782.3) 11/23/19 13 Inactive confirmed Evan-119 2830- Problem Otalgia (775407013) Otalgia (388.71) 01/06/20 14 Inactive confirmed Evan-119 2830- Problem Insomnia (281388614) Insomnia (307.41) 11/23/19 13 Inactive confirmed Evan-119 2830- Problem Generalized abdominal pain (255782844) Generalized abdominal pain (789.07) 02/14/20 12 Inactive confirmed Evan-119 2830- Problem Urinary tract infection (38844602) Urinary tract infection (595.0) 01/06/20 14 Inactive confirmed Evan-119 2830- Problem Tobacco abuse (8219002400) Tobacco abuse (305.1) 05/07/20 12 Inactive confirmed Evan-119 2830- Problem Umbilical hernia (473363267) Umbilical hernia (553.1) 02/14/20 12 Inactive confirmed Evan-119 2830- Problem Labile blood pressure (681667667) Fluctuating blood pressure (796.4) 11/23/19 13 Inactive confirmed Evan-119 2830- Problem Constipation (47632497) Constipation (564.01) 02/14/20 12 Inactive confirmed Evan-119 2830- Problem Allergic otitis media (55936917) Non-recurrent acute allergic otitis media of right ear (H65.111) Inactive confirmed Problem Wheezing (74108508) Wheezing on expiration (R06.2) Inactive confirmed Problem Ecchymosis (56704629) Ecchymosis (R58) Inactive confirmed Problem Hypoxia (805889903) Hypoxia (R09.02) Inactive confirmed Plan Of Treatment Future Test Test Name Order Date Magnesium (Mg) 04/18/2021 Basic Metabolic Panel (BMP) 04/18/2021 Medications Administered Medication Instructions Date of Administration Dosage Notes Kenalog-40 04/18/2021 2 mL LOT: [id number] EXP: 05/2022 [facility]: [address]-9 Medical (General) History Medical History History ICD Code COVID-19 MAMMOGRAM: Refuses Surgical History Surgery Date(Month/Year) Hysterectomy
--- OUTSIDE RECORDS SUMMARY | 2025-06-29 16:10 | XMS_ITS | Patient Health Record ---
Author Organization [facility] Address [address] [place], [place] [address] Support Name Relationship Address Phone Keila Moreno Emergency Contact Unknown [phone] Guarantor Unknown [phone] Allergies Allergen (clinical drug ingredient) Drug/Non Drug Allergy documented on EMR Reaction Allergy Type Onset Date Status amoxicillin Amoxicillin mouth breaks out Drug Allergy Active Reason For Referral No Information Medications Medication SIG (Take, Route, Frequency, Duration) Notes Start Date End Date Status Zithromax 250 MG Tablet 2 tablets on the first day, then 1 tablet daily for 4 days Orally Once a day; Duration: 5 day(s) 11/19/2014 Active Ambien *please review f or potential update for e-prescription and drug interaction check* Active Lasix *please review f or potential update for e-prescription and drug interaction check* Active Social History Social History Additional Details Category Social Info Options Details zzMigrated Social History Migrated Social History Social History(Smoking(MU):):Smoki ng Status: Non-smoker 1 PPD ;Social History(Alcohol:):no ;Social History(Tobacco Use):yes Type: Quantity/Week: Years of use: ; Problems Problem Type SNOMED Code ICD Code Onset Dates Problem Status W/U Status Risk Notes Problem Candidiasis of mouth (84416227) Candidiasis of mouth (112.0) Active confirmed Problem Tobacco user (983402830) Nondependent tobacco use disorder (305.1) Active confirmed Problem Acute conjunctivitis (96111022) Unspecified acute conjunctivitis (372.00) Active confirmed Problem Acute bronchitis (00695116) Acute bronchitis (466.0) Active confirmed Problem Simple chronic bronchitis (93160080) Simple chronic bronchitis (491.0) Active confirmed Problem Acute non-suppurative otitis media (841815054) Otitis Media - Unspecified acute nonsuppurative otitis media (381.00) Active confirmed Plan Of Treatment No Information Medical (General) History Medical History History ICD Code peripheral edema
--- NOTE | 2025-06-29 16:12 | XRR_ITS ---
PROCEDURE INFORMATION: Exam: XR Chest Exam date and time: 06/29/2025 4:44 PM Age: 65 years old Clinical indication: Other: AMS; Additional info: AMS, suspect hypercapnia, HX chf on chronic o2 TECHNIQUE: Imaging protocol: Radiologic exam of the chest. Views: 1 view. COMPARISON: CR XR chest 1V 36086 01/25/2024 4:33 PM FINDINGS: Lungs: 5 cm focus of increased density in the right infrahilar location, suspicious for infiltrate. Mild atelectasis in the right costophrenic sulcus. No left lung infiltrate. Pleural spaces: No effusion or pneumothorax. Heart/Mediastinum: Cardiomegaly again noted. Mediastinal size is normal. Bones/joints: Unremarkable. XR/XR chest 1V portable [id number] IMPRESSION: 1. Medial right lower lung pneumonia. 2. Cardiomegaly.
--- NOTE | 2025-06-29 16:14 | ECG_ITS ---
[facility] Date: 2025-[facility]29 Pat Name: Ramonita Balbuena Department: Room: Gender: Female Wireline Field Operator: : 1960 Requested By: Cecil Monae Order Number: [id number] Navi MD: Moni Pepe M.D. Measurements Intervals [place] Rate: 84 P: 76 CO: 173 QRS: 69 QRSD: 90 T: 50 QT: 368 QTc: 437 Interpretive Statements SINUS RHYTHM Compared to ECG 01/26/2024 00:21:48 T-wave abnormality no longer present Possible ischemia no longer present Electronically Signed On 06-29-2025 23:28:49 CDT by Moni Pepe M.D. [email or web address] [id number]
--- NOTE | 2025-06-29 16:23 | PC.NURSE ---
DAUGHTER CALLED AND STATES PATIENT IN THE PAST HAS OVERDOSED ON AMBIEN AND SLEEPING PILLS. PATIENT TRANSFERRED TO SPEAK WITH DR REN IN REGARDS TO RESUSCITATION STATUS.
[2025-06-29] MEDS: methylPREDNISolone sod succ 125 mg/2 mL INJ IV (16:24)
[2025-06-29 16:25] LABS: ABG PH Result 7.34 (7.35-7.45); Carboxyhemoglobin 8.9 %THgb (0.4-20.1); Methemoglobin 0.0 % (0.4-1.5); PO2 ABG 60.6 mmHg (80.0-100.0)
[2025-06-29 16:37] LABS: PO2 FiO2 Ratio Arterial Blood 189
[2025-06-29 16:38] LABS: Blood Gas Drawn By congi
[2025-06-29 16:39] LABS: ABG PCO2 72.2 mmHg (35-45)
[2025-06-29 16:43] LABS: Hematocrit 38.9 % (36-47); Hemoglobin 11.00 g/dL (11.27-16.99); Mean Corpuscular HGB Conc 28.3 g/dL (30-55); Mean Corpuscular Hemoglobin 29.5 pg (27-33); Mean Corpuscular Volume 104.3 fl (85-98); Nucleated Red Blood Cells % 0 %; Platelet Count 200 10^3/cmm (157-399); Red Blood Count 3.73 10^6/uL (3.85-5.65); White Blood Count 6.48 10^3/uL (3.29-11.43)
[2025-06-29 17:21] LABS: Troponin(5th) Baseline 33 ng/L (0-10)
[2025-06-29 17:23] LABS: Lactic Sepsis W/Reflex 1.1 mmol/L (0.5-2.2)
[2025-06-29 17:28] LABS: INR 0.94 (0.8-1.2); Prothrombin Time 13.20 SECONDS (12.1-14.9)
[2025-06-29 17:34] LABS: Respiratory Syncytial Virus Ce NEGATIVE (Negative); SARS-CoV-2 PCR NEGATIVE (Negative)
[2025-06-29] MEDS: cefepime 1,000 mg SDV 1000 MG IVP (17:35)
[2025-06-29] MEDS: metroNIDAZOLE IV 500 MG/100 ML PREMIX 100 MG IV (17:39)
[2025-06-29 17:43] LABS: Alanine Aminotransferase 8 U/L (0-33); Albumin Level 3.8 g/dL (3.5-5.2); Alkaline Phosphatase 148 U/L (35-105); Anion Gap 15.4 (5-19); Aspartate Amino Transferase 15 U/L (0-32); Blood Urea Nitrogen 24 mg/dL (8-23); Calcium 8.6 mg/dL (8.5-10.5); Carbon Dioxide 33 mmol/L (22-29); Chloride 95 mmol/L (98-107); Creatinine Clr Calc Pharmacy 60.4252; Globulin 3.0 g/dL (1.3-4.6); Glucose 107 mg/dL (65-115); Magnesium 2.5 mg/dL (1.7-2.3); NT Pro B Type Natriuretic Pept 3082 pg/mL (0-125); Osmolality Calculated 291 mOsm/kg (285-295); Potassium 5.4 mmol/L (3.5-5.1); Sodium 138 mmol/L (136-145); Total Protein 6.8 g/dL (6.6-8.7)
--- NOTE | 2025-06-29 18:14 | ECG_ITS ---
[facility] Date: 2025-06-29 Pat Name: Ramonita Balbuena Department: Room: Gender: Female Associate Entertainment Editor: : 1960 Requested By: Cecil Monae Order Number: [id number] Mcelroy MD: Moni Pepe M.D. Measurements Intervals [place] Rate: 76 P: 80 TN: 186 QRS: 59 QRSD: 91 T: 52 QT: 400 QTc: 450 Interpretive Statements SINUS RHYTHM Non diagnostic T wave changes Compared to ECG 06/29/2025 16:03:48 No significant changes Electronically Signed On 06-29-2025 23:39:48 CDT by Moni Pepe M.D. [email or web address] [id number]
--- NOTE | 2025-06-29 18:27 | PM.HP ---
Providers/Chief Complaint Primary Care Provider: Chad Johnson DO Chief Complaint: AMS History of Present Illness Ramonita Balbuena is a 65 year old female with a past medical history of obesity hypoventilation syndrome, CHF, chronic hypercapnic respiratory failure, hypertension, who presents [facility] due to altered mental status. Currently patient is alert to person, not place, time she awakens to her name, but falls back asleep, she withdraw from pain, her GCS score is 10, she is on BiPAP 30% FiO2, 18/8, I cannot get a history from patient, due to encephalopathy, however according to ER provider she was given Narcan by EMS which improved her mentation to some degree, according to her daughter, she might have been taking her Ambien and her Xanax together, but is not exactly clear, she was found Medications/Allergies Home Medications ?Medication ?Instructions ?Recorded ?Confirmed ?Last Taken ?Type Oxygen concentrator #1 ea 09/06/24 06/29/25 Unknown Rx albuterol sulfate 2.5 mg/3 mL 2.5 mg (3 mL) inhalation Q4H PRN 02/15/25 06/29/25 Unknown Rx (0.083 %) solution for nebulization shortness of breath or wheezing #75 mL citalopram 40 mg tablet 40 mg PO DAILY #90 tabs 02/15/25 06/29/25 Unknown Rx quetiapine 100 mg tablet (Seroquel) 200 mg (2 x 100 mg) PO DAILY #60 02/15/25 06/29/25 Unknown Rx tabs tiotropium bromide 18 mcg capsule 1 cap inhalation DAILY #60 02/15/25 06/29/25 Unknown Rx with inhalation device (Spiriva inhalations with HandiHaler) zolpidem 12.5 mg tablet,extended 12.5 mg PO DAILY #30 tabs 02/15/25 06/29/25 Unknown Rx release,multiphase alprazolam 0.5 mg tablet 0.5 mg PO BID PRN Anxiety #60 tabs 05/10/25 06/29/25 Unknown Rx prazosin 5 mg capsule See Rx Instructions .Route 05/12/25 06/29/25 Unknown Rx .COMPLEX #30 caps albuterol sulfate 90 mcg/actuation See Rx Instructions .Route 06/02/25 06/29/25 Unknown Rx aerosol inhaler (Ventolin HFA) .COMPLEX #18 grams Allergies Allergy/AdvReac Type Severity Reaction Status Date / Time amoxicillin AdvReac Intermediate mouth sores Verified 02/15/25 11:00 PFSH Acute PFSH: Medical History Congestive heart failure Obesity hypoventilation syndrome Upper respiratory infection Left otitis media Open wound of right forearm Pneumonia DNR (do not resuscitate) discussion Right heart failure Complicated grief Volume overload state of heart Anasarca Anxiety Acute respiratory failure with hypoxia and hypercapnia Tobacco abuse counseling Hypertension Surgical History No significant past surgical history Family History Mother Obesity Hypertension Father Hypertension Heart attack, Onset Age: 78 . Social History Smoking and tobacco/nicotine status: never used tobacco/nicotine Second hand smoke exposure: No Alcohol intake: unknown Substance/Drug Use: unknown Adopted: No Caregiver/support person: Yes Lives independently: Yes Do you think of yourself as: Straight/Heterosexual Current gender identity: Female Female Reproductive History: Spontaneous abortions: No Vitals/I&O/Wt Last Vital Signs Temp 99.0 F 06/29/25 16:06 Pulse 78 06/29/25 17:48 Resp 20 H 06/29/25 17:48 BP 156/89 06/29/25 17:48 Pulse Ox 89 L 06/29/25 17:48 O2 Del Method BiPAP 06/29/25 17:48 O2 Flow Rate 3 06/29/25 16:06 FiO2 32 06/29/25 17:26 Weight last 48 hrs Weight 149.685 kg Physical Exam Const: COMMON NORMALS: no acute distress ORIENTATION/CONSCIOUSNESS: Yes awake, Yes oriented to person and Yes confused; not oriented to place and not oriented to time HENMT: COMMON NORMALS: normocephalic HEAD & SCALP: normocephalic Eye: COMMON NORMALS: Equal, round and reactive pupils present Neck/C-Spine: COMMON NORMALS: no JVD Lymph: LYMPHATIC: no lymphadenopathy noted Resp: COMMON NORMALS: normal respiratory effort, No retractions and No use of accessory muscles OTHER: Crackles and wheezing in the lung thorpe Cardio: COMMON NORMALS: no JVD, regular rate, regular rhythm, S1 normal heart sound present and S2 normal heart sound present RATE: regular rate RHYTHM: regular rhythm HEART SOUNDS: S1 normal heart sound present and S2 normal heart sound present GI: COMMON NORMALS: Normal to inspection, nondistended, normoactive bowel sounds present, Soft to palpation and non-tender : COMMON NORMALS: Yes no CVA tenderness Extremity: NARRATIVE EXTREMITY EXAM: 1+ pitting edema Neuro: OTHER: Moves bilateral upper and lower extremities, she can follow some commands she turns her head towards me, she is able to say a few words, but falls back asleep, Data 06/29/25 16:36 06/29/25 17:08 A&P Assessment and plan 1. Altered mental status: 2. Acute hypercapnic respiratory failure: 3. Encephalopathy: 4. Pneumonia: 5. Sepsis: 6. Diastolic CHF: 7. COPD (chronic obstructive pulmonary disease): 8. Acute exacerbation of chronic obstructive pulmonary disease (COPD): 9. CATERINA (acute kidney injury): Plan: Acute hypercarbic respiratory failure - Multifactorial - Pneumonia - COPD exacerbation - Diastolic CHF exacerbation - With obesity hypoventilation syndrome Plan - Admit to ICU - BiPAP - DuoNeb - Budesonide - Rocephin - Azithromycin - Solu-Medrol 40 twice daily - Lasix 40 IV twice daily NSTEMI Serial EKGs, serial troponins, telemetry monitoring Acute encephalopathy - Multifactorial - Hypercarbia - Sepsis, pneumonia - Hypoxia -Polypharmacy - Ordered urine toxicology screen, alcohol level, ammonia level, CT head Keep n.p.o. Neurochecks, NIH stroke, aspiration precautions, n.p.o. Acute kidney injury, secondary sepsis Sepsis secondary to pneumonia Diastolic CHF, diuresis as above COPD as above Full code Lovenox for DVT prophylaxis PDMP PDMP Reviewed: Not Reviewed Attestations Medical Necessity Statement*: Patient requires hospitalization for acute encephalopathy, polypharmacy, pneumonia, acute hypoxic respiratory failure, NSTEMI, CATERINA, acute on chronic hypercarbic respiratory failure sepsis, inpatient, greater than 2 midnights Diagnoses Altered mental status R41.82 Acute hypercapnic respiratory failure J96.02 Encephalopathy G93.40 Pneumonia J18.9 Sepsis A41.9 Diastolic CHF I50.30 COPD (chronic obstructive pulmonary disease) J44.9 Acute exacerbation of chronic obstructive pulmonary disease (COPD) J44.1 CATERINA (acute kidney injury) N17.9 Sepsis Event Note Evaluation Current stage of sepsis: sepsis Possible source: pulmonary Focused Exam Vital Signs Temp Pulse Resp BP Pulse Ox O2 Del Method O2 Flow Rate 06/29/25 17:48 78 20 H 156/89 89 L BiPAP 06/29/25 17:26 76 90 06/29/25 16:06 99.0 F 84 16 139/92 92 Nasal Cannula 3 06/29/25 16:01 99.0 F 84 16 139/92 92 Nasal Cannula 3 FiO2 06/29/25 17:48 06/29/25 17:26 32 06/29/25 16:06 06/29/25 16:01 Respiratory exam: Present wheezes Capillary refill: < 3 Seconds Peripheral pulse strength: 3+ Normal Peripheral pulse location: Pedal Skin exam: normal turgor Date exam was performed: 06/29/25 Time exam was performed: 18:31 Problem List 1. Altered mental status: Status: Acute 2. Acute hypercapnic respiratory failure: Status: Acute 3. Encephalopathy: Status: Acute 4. Pneumonia: Status: Acute 5. Sepsis: Status: Acute 6. Diastolic CHF: Status: Acute 7. COPD (chronic obstructive pulmonary disease): Status: Chronic 8. Acute exacerbation of chronic obstructive pulmonary disease (COPD): Status: Inactive 9. CATERINA (acute kidney injury): Status: Acute
--- NOTE | 2025-06-29 18:31 | CTR_ITS ---
PROCEDURE INFORMATION: Exam: CT Head Without Contrast Exam date and time: 06/29/2025 8:20 PM Age: 65 years old Clinical indication: Altered mental status/memory loss; Additional info: AMS TECHNIQUE: Imaging protocol: Computed tomography of the head without contrast. Radiation optimization: All CT scans at this facility use at least one of these dose optimization techniques: automated exposure control; mA and/or kV adjustment per patient size (includes targeted exams where dose is matched to clinical indication); or iterative reconstruction. COMPARISON: CT head wo con* [id number] 05/09/2021 3:46 PM RADIATION DOSE METRICS: Total DLP (mGy-cm): 1117.88 FINDINGS: Brain: See Cerebral ventricles finding. Cerebral ventricles: Query mild involutional changes of the ventricles and sulci. Paranasal sinuses: Visualized sinuses are unremarkable. No fluid levels. Mastoid air cells: Visualized mastoid air cells are well aerated. Bones: Unremarkable. No acute fracture. Soft tissues: Unremarkable. CT/CT head wo con* [id number] IMPRESSION: No definite acute intracranial abnormality.
[2025-06-29 19:14] LABS: Ammonia 21 umol/L (11-51)
[2025-06-29 19:15] LABS: Troponin 5 2HR 34.35 ng/L (0-10); Troponin 5 2HR Delta 1.35 ABS# (0-10)
[2025-06-29 19:20] LABS: Alcohol Level < 10 mg/dL (0-10)
[2025-06-29 19:41] LABS: Cholesterol 165 mg/dL (0-200); Estmated Average Glucose 94; HDL Cholesterol 67 mg/dL (60-100); Hemoglobin A1C 4.9 % (4.0-6.0); Thyroid Stimulating Hormone 2.99 uIU/mL (0.27-4.20); Triglycerides 74 mg/dL (0-150)
[2025-06-29] MEDS: pantoprazole 40 mg SDV IVP (20:30)
[2025-06-29] MEDS: FUROsemide 10 mg/mL SDV 4mL 40 MG IVP (20:30)
--- NOTE | 2025-06-29 22:14 | ECG_ITS ---
Zarpo Smarp. Test Date: 2025-06-30 Pat Name: Ramonita Balbuena Department: Room: [facility] Gender: Female Household Chores: : 1960 Requested By: Cecil Monae Order Number: [id number] Navi MD: Moni Pepe M.D. Measurements Intervals Gilbert Rate: 74 P: 82 UT: 190 QRS: 33 QRSD: 109 T: 33 QT: 427 QTc: 476 Interpretive Statements SINUS RHYTHM ST DEVIATION AND MODERATE T-WAVE ABNORMALITY, CONSIDER ANTERIOR ISCHEMIA [-0.1+ mV T-WAVE IN V3/V4] Compared to ECG 06/29/2025 18:17:06 Possible ischemia now present T-wave abnormality still present Electronically Signed On 07-03-2025 17:53:07 CDT by Moni Pepe M.D. [email or web address]
[2025-06-29 22:49] LABS: PCP Screen Urine Negative (Negative)
[2025-06-29 23:11] LABS: Troponin 5 6HR 34.90 ng/L (0-10); Troponin 5 6HR Delta 1.90 ng/L (0-12)
[2025-06-30] VITALS (35 sets, daily range): BP systolic 111–167; BP diastolic 26–108; PULSE 60–92; RESP 14–24; TEMP 36.3–37.2; O2SAT 88–98
[2025-06-30 04:02] LABS: Hematocrit 36.6 % (36-47); Hemoglobin 10.60 g/dL (11.27-16.99); Mean Corpuscular HGB Conc 29.0 g/dL (30-55); Mean Corpuscular Hemoglobin 28.8 pg (27-33); Mean Corpuscular Volume 99.5 fl (85-98); Nucleated Red Blood Cells % 0 %; Platelet Count 165 10^3/cmm (157-399); Red Blood Count 3.68 10^6/uL (3.85-5.65); White Blood Count 5.25 10^3/uL (3.29-11.43)
[2025-06-30 04:29] LABS: Alanine Aminotransferase 8 U/L (0-33); Albumin Level 3.7 g/dL (3.5-5.2); Alkaline Phosphatase 139 U/L (35-105); Anion Gap 13.3 (5-19); Aspartate Amino Transferase 18 U/L (0-32); Blood Urea Nitrogen 24 mg/dL (8-23); Calcium 8.7 mg/dL (8.5-10.5); Carbon Dioxide 36 mmol/L (22-29); Chloride 96 mmol/L (98-107); Creatinine Clr Calc Pharmacy 70.0160; Globulin 3.5 g/dL (1.3-4.6); Glucose 134 mg/dL (65-115); Osmolality Calculated 298 mOsm/kg (285-295); Potassium 4.3 mmol/L (3.5-5.1); Sodium 141 mmol/L (136-145); Total Protein 7.2 g/dL (6.6-8.7)
[2025-06-30 04:39] LABS: NT Pro B Type Natriuretic Pept 5183 pg/mL (0-125)
[2025-06-30] MEDS: methylPREDNISolone sod succ 40 mg/mL INJ IVP ×2 (05:57→18:01)
[2025-06-30] MEDS: FUROsemide 10 mg/mL SDV 4mL 40 MG IVP ×2 (06:02→18:03)
[2025-06-30 07:20] LABS: Arterial Blood Gas Hematocrit 33.9 % (37-47); Blood Gas Allen Test Pos; Blood Gas Operator Identificat glc; Blood Gas Sample Site Radial, left; Blood Gas Sample Type Arterial; HCO3 ABG 38.8 mmol/L (22-26)
[2025-06-30] MEDS: cefTRIAXone 1,000 mg SDV 1000 MG IVP (10:06)
[2025-06-30] MEDS: water for injection-sterile 10 ML 1000 ML (10:07)
--- NOTE | 2025-06-30 12:35 | PC.NURSE ---
daughter akira in room , pt removed gold tone ring with clear stones and sent home with her witness Judi betts
--- NOTE | 2025-06-30 13:47 | P.PN_ITS ---
Subjective 2 Subjective: Patient was seen this morning, nursing staff at bedside, she is to person, not to place, to time, when I asked her if she accidentally took her Ativan and Xanax together she tells me that she is not sure, she does report shortness of breath, denies any chest pain, does frequently require redirection, I cannot discern any facial droop, slurring of her words, pupils are equal round reactive to light, she moves bilateral upper and lower extremities, remains encephalopathic, Vitals/I&O/Wt Last Vital Signs Temp 97.3 F L 06/30/25 04:30 Pulse 79 06/30/25 13:00 Resp 14 06/30/25 13:00 BP 123/67 06/30/25 13:00 Pulse Ox 92 06/30/25 13:00 O2 Del Method Nasal Cannula 06/30/25 11:00 O2 Flow Rate 4 06/30/25 11:00 FiO2 30 06/30/25 07:30 06/29/25 06/30/25 06/30/25 22:59 06:59 14:59 Intake Total 350 / 350 0 / 350 10 / 10 Output Total 1750 / 1750 Balance 350 / 350 -1750 / -1400 10 / 10 Weight last 48 hrs Weight 121 kg Weight 128 kg Weight 149.685 kg Physical Exam 2 Const: COMMON NORMALS: no acute distress ORIENTATION/CONSCIOUSNESS: Yes awake, Yes oriented to person and Yes confused; not oriented to place and not oriented to time Resp: COMMON NORMALS: normal respiratory effort, No retractions and No use of accessory muscles AUSCULTATION: crackles and wheezes Cardio: COMMON NORMALS: regular rate, regular rhythm, S1 normal heart sound present and S2 normal heart sound present RATE: regular rate RHYTHM: r egular rhythm HEART SOUNDS: S1 normal heart sound present and S2 normal heart sound present GI: COMMON NORMALS: Normal to inspection, nondistended, normoactive bowel sounds present and non-tender Extremity: NARRATIVE EXTREMITY EXAM: 1+ pitting edema Neuro: SENSORIUM/ORIENTATION: Yes oriented to person, No oriented to place and No oriented to time Urinary Catheter Management: Agrawal: Cath Placed During This Visit: yes Urinary Catheter Date of Insertion: 06/29/25 Urinary Catheter Time of Insertion: 22:00 Data 06/30/25 03:39 06/30/25 03:39 A&P Assessment and plan 1. Altered mental status: 2. Acute hypercapnic respiratory failure: 3. Encephalopathy: 4. Pneumonia: 5. Sepsis: 6. Diastolic CHF: 7. COPD (chronic obstructive pulmonary disease): 8. Acute exacerbation of chronic obstructive pulmonary disease (COPD): 9. CATERINA (acute kidney injury): Plan: Acute hypercarbic respiratory failure - Multifactorial - Pneumonia - COPD exacerbation - Diastolic CHF exacerbation - With obesity hypoventilation syndrome Plan - Admit to ICU - BiPAP - DuoNeb - Budesonide - Rocephin - Azithromycin - Solu-Medrol 40 twice daily - Lasix 40 IV twice daily NSTEMI Serial EKGs, serial troponins, telemetry monitoring Acute encephalopathy - Multifactorial - Hypercarbia - Sepsis, pneumonia - Hypoxia -Polypharmacy - Ordered urine toxicology screen positive for benzodiazepine, alcohol level 10, ammonia level 21, CT head no acute findings Keep n.p.o. Neurochecks, NIH stroke, aspiration precautions, n.p.o. Acute kidney injury, secondary sepsis Sepsis secondary to pneumonia Diastolic CHF, diuresis as above COPD as above Full code Lovenox for DVT prophylaxis For today monitor mentation IV antibiotics, IV steroids, IV diuresis, will wean off BiPAP PDMP PDMP Reviewed: Not Reviewed Attestations 2 Medical Necessity Statement*: Patient requires hospitalization for acute hypercarbic respiratory failure, acute encephalopathy, CATERINA, NSTEMI, pneumonia, CHF, COPD Diagnoses Altered mental status R41.82 Acute hypercapnic respiratory failure J96.02 Encephalopathy G93.40 Pneumonia J18.9 Sepsis A41.9 Diastolic CHF I50.30 COPD (chronic obstructive pulmonary disease) J44.9 Acute exacerbation of chronic obstructive pulmonary disease (COPD) J44.1 CATERINA (acute kidney injury) N17.9
--- NOTE | 2025-06-30 14:31 | PC.NURSE ---
some confusion noted sitting up in bed pulling off monitor wires , family in for visit nicotine patch placed on pt as per here request urine output 2l at this time good appitite noted
[2025-06-30] MEDS: pantoprazole 40 mg SDV IVP (18:01)
--- NOTE | 2025-06-30 18:17 | PC.NURSE ---
tearful and agitated upset doctor called for anxiety meds
[2025-07-01] VITALS (27 sets, daily range): BP systolic 113–166; BP diastolic 55–103; PULSE 59–90; RESP 12–25; TEMP 36.5–37.1; O2SAT 88–98
[2025-07-01 03:26] LABS: Hematocrit 37.7 % (36-47); Hemoglobin 11.20 g/dL (11.27-16.99); Mean Corpuscular HGB Conc 29.7 g/dL (30-55); Mean Corpuscular Hemoglobin 29.2 pg (27-33); Mean Corpuscular Volume 98.2 fl (85-98); Nucleated Red Blood Cells % 0 %; Platelet Count 190 10^3/cmm (157-399); Red Blood Count 3.84 10^6/uL (3.85-5.65); White Blood Count 5.81 10^3/uL (3.29-11.43)
[2025-07-01 03:47] LABS: Anion Gap 14.2 (5-19); Blood Urea Nitrogen 28 mg/dL (8-23); Calcium 8.6 mg/dL (8.5-10.5); Carbon Dioxide 38 mmol/L (22-29); Chloride 93 mmol/L (98-107); Creatinine Clr Calc Pharmacy 74.5714; Glucose 154 mg/dL (65-115); Osmolality Calculated 301 mOsm/kg (285-295); Potassium 4.2 mmol/L (3.5-5.1); Sodium 141 mmol/L (136-145)
[2025-07-01 03:54] LABS: NT Pro B Type Natriuretic Pept 3885 pg/mL (0-125)
[2025-07-01] MEDS: methylPREDNISolone sod succ 40 mg/mL INJ IVP (06:03)
[2025-07-01] MEDS: FUROsemide 10 mg/mL SDV 4mL 40 MG IVP ×2 (06:03→16:35)
[2025-07-01] MEDS: cefTRIAXone 1,000 mg SDV 1000 MG IVP (09:19)
--- NOTE | 2025-07-01 11:40 | PC.NURSE ---
Blood sugar 158 mg/ml per pt's monitoring system. requested insulin to be held at this time I just fed him. Let's wait and see
--- NOTE | 2025-07-01 12:05 | PC.SOCIAL ---
IMM Updated Updated pt on IMM. No questions voiced. Provided pt a copy. Initialed, dated, & timed a copy & placed in chart.
--- NOTE | 2025-07-01 15:55 | P.PN_ITS ---
Subjective 2 Subjective: Patient seen this morning, denies any fevers, chills, does have shortness of breath, does have edema Vitals/I&O/Wt Last Vital Signs Temp 98.8 F 07/01/25 13:00 Pulse 72 07/01/25 15:11 Resp 16 07/01/25 15:10 BP 156/80 07/01/25 15:00 Pulse Ox 95 07/01/25 15:10 O2 Del Method Nasal Cannula 07/01/25 15:10 O2 Flow Rate 3.5 07/01/25 15:10 FiO2 30 07/01/25 02:54 07/01/25 07/01/25 07/01/25 06:59 14:59 22:59 Intake Total 760 / 760 Output Total 1300 / 4500 1450 / 1450 Balance -1300 / -3990 -690 / -690 Weight last 48 hrs Weight 117.753 kg Weight 121 kg Weight 128 kg Weight 149.685 kg Physical Exam 2 Const: COMMON NORMALS: no acute distress and patient oriented x3 Resp: COMMON NORMALS: normal respiratory effort, No retractions, No use of accessory muscles and clear to auscultation bilaterally AUSCULTATION: clear to auscultation bilaterally Cardio: COMMON NORMALS: regular rate, regular rhythm, S1 normal heart sound present and S2 normal heart sound present RATE: regular rate RHYTHM: r egular rhythm HEART SOUNDS: S1 normal heart sound present and S2 normal heart sound present GI: COMMON NORMALS: Normal to inspection, nondistended, normoactive bowel sounds present and non-tender Extremity: COMMON NORMALS: no pedal edema Neuro: COMMON NORMALS: patient oriented x3 Psych: COMMON NORMALS: mental status grossly normal Urinary Catheter Management: Agrawal: Cath Placed During This Visit: yes Reason for Continuing Indwelling Catheter: Accurate Measurement of Urinary Output in Critically Ill Patients Urinary Catheter Date of Insertion: 06/29/25 Urinary Catheter Time of Insertion: 22:00 Data 07/01/25 03:05 07/01/25 03:05 A&P Assessment and plan 1. Altered mental status: 2. Acute hypercapnic respiratory failure: 3. Encephalopathy: 4. Pneumonia: 5. Sepsis: 6. Diastolic CHF: 7. COPD (chronic obstructive pulmonary disease): 8. Acute exacerbation of chronic obstructive pulmonary disease (COPD): 9. CATERINA (acute kidney injury): Plan: Acute hypercarbic respiratory failure - Multifactorial - Pneumonia - COPD exacerbation - Diastolic CHF exacerbation - With obesity hypoventilation syndrome Plan - Moved to CSU - BiPAP - DuoNeb - Budesonide - Rocephin - Azithromycin - Prednisone 40 mg daily - Lasix 40 IV twice daily NSTEMI Serial EKGs, serial troponins, telemetry monitoring Acute encephalopathy - Multifactorial - Hypercarbia - Sepsis, pneumonia - Hypoxia -Polypharmacy - Ordered urine toxicology screen positive for benzodiazepine, alcohol level 10, ammonia level 21, CT head no acute findings Keep n.p.o. Neurochecks, NIH stroke, aspiration precautions, n.p.o. Acute kidney injury, secondary sepsis Sepsis secondary to pneumonia Diastolic CHF, diuresis as above COPD as above Full code Lovenox for DVT prophylaxis For today monitor mentation IV antibiotics, IV steroids, IV diuresis, will wean off BiPAP PDMP PDMP Reviewed: Not Reviewed Attestations 2 Medical Necessity Statement*: Patient requires hospitalization for shortness of breath, CHF, pna Diagnoses Altered mental status R41.82 Acute hypercapnic respiratory failure J96.02 Encephalopathy G93.40 Pneumonia J18.9 Sepsis A41.9 Diastolic CHF I50.30 COPD (chronic obstructive pulmonary disease) J44.9 Acute exacerbation of chronic obstructive pulmonary disease (COPD) J44.1 CATERINA (acute kidney injury) N17.9
--- NOTE | 2025-07-01 16:31 | PC.OT ---
Occupational therapy evaluation was attempted. Patient states that she is going home tomorrow and has no concerns about taking care of herself when she gets home. Therapist discusses possible benefits of Occupational therapy, but patient declines Occupational therapy evaluation. Patient is alert to person, place, and time at this time. She states that she couldn't have told me her birthdate this morning but is able to at this time.
--- NOTE | 2025-07-01 17:27 | PC.NURSE ---
Shift summary: Pt remains alert and oriented. She spent her time equally sitting on chair or resting in bed. VSS. Heart monitor shows sinus rhythm. Pt back to her home O2 amount 3-4lpm/NC. No shortness of breath or dizziness reported. No pain reported. Pt does have some anxiety per her statements. She is feeling much more comfortable knowing that her Ambien is reordered for tonight. Blood sugars have been 120-140s. She has a good appetite , eating majority of every meal. Story cath just removed. Pt due to void. She had 2150ml output in story. Bowel movement this am.
[2025-07-01] MEDS: pantoprazole 40 mg SDV IVP (18:43)
[2025-07-02] VITALS (10 sets, daily range): BP systolic 117–130; BP diastolic 58–75; PULSE 64–96; RESP 9–22; TEMP 36.3–37.1; O2SAT 93–97
[2025-07-02 04:24] LABS: Hematocrit 38.4 % (36-47); Hemoglobin 11.60 g/dL (11.27-16.99); Mean Corpuscular HGB Conc 30.2 g/dL (30-55); Mean Corpuscular Hemoglobin 29.5 pg (27-33); Mean Corpuscular Volume 97.7 fl (85-98); Nucleated Red Blood Cells % 0 %; Platelet Count 181 10^3/cmm (157-399); Red Blood Count 3.93 10^6/uL (3.85-5.65); White Blood Count 6.28 10^3/uL (3.29-11.43)
[2025-07-02 04:46] LABS: Anion Gap 12.7 (5-19); Blood Urea Nitrogen 35 mg/dL (8-23); Calcium 8.5 mg/dL (8.5-10.5); Chloride 91 mmol/L (98-107); Creatinine Clr Calc Pharmacy 81.5964; Glucose 95 mg/dL (65-115); NT Pro B Type Natriuretic Pept 1559 pg/mL (0-125); Osmolality Calculated 300 mOsm/kg (285-295); Potassium 3.7 mmol/L (3.5-5.1); Sodium 141 mmol/L (136-145)
[2025-07-02 04:51] LABS: Carbon Dioxide 41 mmol/L (22-29)
--- NOTE | 2025-07-02 08:15 | PC.NURSE ---
awake and up in room this morning somewhat drowsy am breakfast served , no c/o pain ect, related is going home this am
[2025-07-02] MEDS: cefTRIAXone 1,000 mg SDV 1000 MG IVP (08:44)
[2025-07-02] MEDS: water for injection-sterile 10 ML 10000 ML (08:45)
[2025-07-02] MEDS: FUROsemide 10 mg/mL SDV 4mL 40 MG IVP (09:20)
--- NOTE | 2025-07-02 10:25 | PM.DCS ---
Discharge Providers Date of Admission: 06/29/25 18:13 Date of Discharge: July 02, 2025 Attending Provider at Admission: Carlo Salinas MD Attending Provider at Discharge: Carlo Salinas MD Primary Care Provider: Chad Johnson DO Diagnoses at Discharge Discharge Diagnosis 1. Altered mental status: 2. Acute hypercapnic respiratory failure: 3. Encephalopathy: 4. Pneumonia: 5. Sepsis: 6. Diastolic CHF: 7. Pulmonary emphysema, unspecified emphysema type: 8. Acute exacerbation of chronic obstructive pulmonary disease (COPD): 9. CATERINA (acute kidney injury): Reason for Visit Reason for Visit: [facility] Hospital Course Hospital Course Ramonita Balbuena is a 65 year old female with a past medical history of obesity hypoventilation syndrome, CHF, chronic hypercapnic respiratory failure, hypertension, who presents [facility] due to altered mental status. Currently patient is alert to person, not place, time she awakens to her name, but falls back asleep, she withdraw from pain, her GCS score is 10, she is on BiPAP 30% FiO2, 30/05, I cannot get a history from patient, due to encephalopathy, however according to ER provider she was given Narcan by EMS which improved her mentation to some degree, according to her daughter, she might have been taking her Ambien and her Xanax together, but is not exactly clear, she was found Patient was admitted to [facility] for acute hypercarbic respiratory failure, multifactorial, from COPD, diastolic CHF, pneumonia, obesity hypoventilation syndrome. Patient was monitored in the ICU, received IV diuretics, IV antibiotics, IV steroids, BiPAP therapy and clinically monitored. Overall patient's clinical condition improved, she was diuresed over 6 L negative, remains afebrile, cultures so far no growth. Will be discharged on Lasix therapy with potassium replacement therapy, prednisone burst, continue her chronic prednisone, discharged on oral antibiotics. Patient was advised compliance with her CPAP at home, and follow-up with pulmonary as outpatient For acute encephalopathy likely multiple factorial from hypercarbia, sepsis, pneumonia, polypharmacy resolved. On discharge she is alert oriented x 3, following all commands In terms of polypharmacy patient is on Xanax and Ambien. I had a detailed discussion with her about using his medication sparingly -she should decrease her dose of Xanax in half, use sparingly - Do not use Xanax with Ambien, she should separate these two medications by at least 4 to 6 hours, due to risk of toxicity, side effects, sedation - Decrease dose of Ambien in half - Discussed morbidity and mortality issues with Xanax, Ambien, discussed overdose, polypharmacy, toxicity, respiratory depression, risk of , she voiced understanding, all questions answered, agreed to proceed Physical Exam Const: COMMON NORMALS: no acute distress and patient oriented x3 Resp: COMMON NORMALS: normal respiratory effort, No retractions, No use of accessory muscles and clear to auscultation bilaterally AUSCULTATION: clear to auscultation bilaterally Cardio: COMMON NORMALS: regular rate, regular rhythm, S1 normal heart sound present and S2 normal heart sound present RATE: regular rate RHYTHM: regular rhythm HEART SOUNDS: S1 normal heart sound present and S2 normal heart sound present GI: COMMON NORMALS: Normal to inspection, nondistended, normoactive bowel sounds present and non-tender Extremity: COMMON NORMALS: no pedal edema Neuro: COMMON NORMALS: patient oriented x3 and moves all extremities Psych: COMMON NORMALS: mental status grossly normal Urinary Catheter Management: Agrawal: Cath Placed During This Visit: yes, but has since been removed by the nurse Reason for Continuing Indwelling Catheter: Accurate Measurement of Urinary Output in Critically Ill Patients Urinary Catheter Date of Insertion: 06/29/25 Urinary Catheter Time of Insertion: 22:00 Date Urinary Catheter Removed: 07/01/25 Time Urinary Catheter Discontinued: 17:24 Discharge Data Studies Completed and Pending Completed Studies During Hospitalization Category Date Time Status CT head wo con* [id number] Stat Cat Scan 06/29/25 18:31 Completed XR chest 1V portable [id number] Stat Exams 06/29/25 16:12 Completed Pending at discharge Category Date Time Status Basic Metabolic Panel AM LABS Lab 07/03/25 04:00 Ordered C Reactive Protein AM LABS Lab 07/03/25 04:00 Ordered Complete Blood Count w/Auto AM LABS Lab 07/03/25 04:00 Ordered NT Pro B Type Natriuretic Pept QAM Lab 07/03/25 06:00 Ordered Radiology Impressions Chest X-Ray 06/29/25 16:12 IMPRESSION: 1. Medial right lower lung pneumonia. 2. Cardiomegaly. Head CT 06/29/25 18:31 IMPRESSION: No definite acute intracranial abnormality. Laboratory Results WBC 6.28 10^3/uL (3.29-11.43) 07/02/25 03:53 RBC 3.93 10^6/uL (3.85-5.65) 07/02/25 03:53 Hgb 11.60 g/dL (11.27-16.99) 07/02/25 03:53 Hct 38.4 % (36-47) 07/02/25 03:53 MCV 97.7 fl (85-98) 07/02/25 03:53 MCH 29.5 pg (27-33) 07/02/25 03:53 MCHC 30.2 g/dL (30-55) 07/02/25 03:53 RDW 15.7 % (12.1-15.1) H 07/02/25 03:53 Plt Count 181 10^3/cmm (157-399) 07/02/25 03:53 MPV 9.9 fL (7.4-10.4) 07/02/25 03:53 Neut % (Auto) 67.9 % 07/02/25 03:53 Lymph % (Auto) 19.3 % 07/02/25 03:53 [place] % (Auto) 12.3 % 07/02/25 03:53 Eos % (Auto) 0.0 % 07/02/25 03:53 Baso % (Auto) 0.0 % 07/02/25 03:53 Neut # (Auto) 4.27 10^3/uL (1.8-7.7) 07/02/25 03:53 Lymph # (Auto) 1.2 10^3/uL (0.8-4.8) 07/02/25 03:53 [place] # (Auto) 0.8 10^3/uL (0.2-0.9) 07/02/25 03:53 Eos # (Auto) 0.0 10^3/uL (0.0-0.8) 07/02/25 03:53 Baso # (Auto) 0.0 10^3/uL (0.0-0.1) 07/02/25 03:53 Nucleated RBC % (auto) 0 % 07/02/25 03:53 Nucleated RBCs # 0.0 /100WBC 07/02/25 03:53 PT 13.20 SECONDS (12.1-14.9) 06/29/25 17:08 INR 0.94 (0.8-1.2) 06/29/25 17:08 Specimen Type Arterial 06/29/25 16:13 Sample Site Radial, left 06/29/25 16:13 ABG pH 7.34 (7.35-7.45) L 06/29/25 16:13 ABG pCO2 72.2 mmHg (35-45) H* 06/29/25 16:13 ABG pO2 60.6 mmHg (80.0-100.0) L 06/29/25 16:13 ABG PO2/FiO2 Ratio 189 06/29/25 16:13 ABG HCO3 38.8 mmol/L (22-26) H 06/29/25 16:13 ABG Base Excess 10.6 mmol/L (-2.0-2.0) H 06/29/25 16:13 Ismael Test Pos 06/29/25 16:13 Hematocrit 33.9 % (37-47) L 06/29/25 16:13 Hgb O2 Saturation 83.5 % (95-100) L 06/29/25 16:13 Carboxyhemoglobin 8.9 %THgb (0.4-20.1) 06/29/25 16:13 Methemoglobin 0.0 % (0.4-1.5) L 06/29/25 16:13 Total Hemoglobin 11.1 g/dL (12-16) L 06/29/25 16:13 O2 Delivery Device 06/29/25 16:13 FiO2 32.0 % 06/29/25 16:13 Specimen Drawn By congi 06/29/25 16:13 Streetcar Repairer ID glc 06/29/25 16:13 Sodium 141 mmol/L (136-145) 07/02/25 03:53 Potassium 3.7 mmol/L (3.5-5.1) 07/02/25 03:53 Chloride 91 mmol/L (98-107) L 07/02/25 03:53 Carbon Dioxide 41 mmol/L (22-29) H 07/02/25 03:53 Anion Gap 12.7 (5-19) 07/02/25 03:53 BUN 35 mg/dL (8-23) H 07/02/25 03:53 Creatinine 0.9 mg/dL (0.5-0.9) 07/02/25 03:53 GFR Calculation 62.6 mL/min (90-130) L 07/02/25 03:53 Glucose 95 mg/dL (65-115) 07/02/25 03:53 POC Glucose 100 mg/dL (70-110) 07/02/25 07:46 Estimat Average Glucose 94 06/29/25 16:36 Hemoglobin A1c 4.9 % (4.0-6.0) 06/29/25 16:36 Calculated Osmolality 300 mOsm/kg (285-295) H 07/02/25 03:53 Lactic Acid 1.1 mmol/L (0.5-2.2) 06/29/25 16:36 Calcium 8.5 mg/dL (8.5-10.5) 07/02/25 03:53 Magnesium 2.5 mg/dL (1.7-2.3) H 06/29/25 17:08 Total Bilirubin 0.4 mg/dL (0.15-1.2) 06/30/25 03:39 AST 18 U/L (0-32) 06/30/25 03:39 ALT 8 U/L (0-33) 06/30/25 03:39 Alkaline Phosphatase 139 U/L (35-105) H 06/30/25 03:39 Ammonia 21 umol/L (11-51) 06/29/25 18:46 Troponin T Baseline 33 ng/L (0-10) H 06/29/25 16:36 Troponin T 120 Minute 34.35 ng/L (0-10) H 06/29/25 18:46 Delta Troponin T 1.35 ABS# (0-10) 06/29/25 18:46 Troponin T Hi Sens 6Hr 34.90 ng/L (0-10) H 06/29/25 22:39 Troponin T Hi Sens 6Hr Delta 1.90 ng/L (0-12) 06/29/25 22:39 C-Reactive Protein 6.6 mg/L (0.0-4.9) H 07/02/25 03:53 NT-Pro-B Natriuret Pep 1559 pg/mL (0-125) H 07/02/25 03:53 Total Protein 7.2 g/dL (6.6-8.7) 06/30/25 03:39 Albumin 3.7 g/dL (3.5-5.2) 06/30/25 03:39 Globulin 3.5 g/dL (1.3-4.6) 06/30/25 03:39 Triglycerides 74 mg/dL (0-150) 06/29/25 16:36 Cholesterol 165 mg/dL (0-200) 06/29/25 16:36 LDL Cholesterol, Calc 83 mg/dL (50-129) 06/29/25 16:36 HDL Cholesterol 67 mg/dL (60-100) 06/29/25 16:36 LDL/HDL Ratio 1.24 RATIO (0.00-3.22) 06/29/25 16:36 Cholesterol/HDL Ratio 2.46 mg/dL (0.0-4.40) 06/29/25 16:36 TSH 2.99 uIU/mL (0.27-4.20) 06/29/25 16:36 Urine Opiates Screen Negative ng/mL (Negative) 06/29/25 22:30 Ur Barbiturates Screen Negative ng/mL (Negative) 06/29/25 22:30 Ur Phencyclidine Scrn Negative ng/mL (Negative) 06/29/25 22:30 Ur Amphetamines Screen Negative ng/mL (Negative) 06/29/25 22:30 U Benzodiazepines Scrn Positive ng/mL (Negative) H 06/29/25 22:30 Urine Cocaine Screen Negative ng/mL (Negative) 06/29/25 22:30 U Marijuana (THC) Screen Negative ng/mL (Negative) 06/29/25 22:30 Ethyl Alcohol < 10 mg/dL (0-10) 06/29/25 17:08 Influenza A (PCR) Negative (Negative) 06/29/25 16:22 Influenza Type B (PCR) Negative (Negative) 06/29/25 16:22 RSV (PCR) Negative (Negative) 06/29/25 16:22 SARS-CoV-2 (PCR) Negative (Negative) 06/29/25 16:22 Vitals Last Vital Signs Temp 97.3 F L 07/02/25 08:00 Pulse 75 07/02/25 08:00 Resp 9 L 07/02/25 08:00 BP 118/73 07/02/25 08:00 Pulse Ox 97 07/02/25 08:00 O2 Del Method Nasal Cannula 07/02/25 07:51 O2 Flow Rate 3.5 07/02/25 07:51 FiO2 30 07/01/25 02:54 Discharge Plan Discharge Patient Disposition: Home Condition: Stable Prescriptions: New doxycycline hyclate 100 mg tablet 100 mg PO BID 5 Days Qty: 10 0RF prednisone 20 mg Tablet 40 mg PO DAILY 5 Days Qty: 10 0RF furosemide [Lasix] 20 mg tablet 20 mg PO DAILY 30 Days Qty: 30 0RF potassium chloride [Klor-Con M20] 20 mEq tablet,ER particles/crystals 20 meq PO DAILY 30 Days Qty: 30 0RF Continued (DME) Oxygen concentrator See Rx Instructions .Route .MEDSUPPLY Qty: 1 5RF Rx Instructions: Please issue necessary oxygen equipment, tubing, concentrator, any additional needs. zolpidem 12.5 mg tablet,ext release multiphase 12.5 mg PO DAILY Qty: 30 5RF tiotropium bromide [Spiriva with HandiHaler] 18 mcg capsule, w/inhalation device 1 cap inhalation DAILY Qty: 60 5RF Rx Instructions: puncture 1 cap using device; one dose = 2 inhalations citalopram 40 mg tablet 40 mg PO DAILY Qty: 90 3RF quetiapine [Seroquel] 100 mg tablet 200 mg PO DAILY Qty: 60 5RF Rx Instructions: Take 2 tabs daily at 8pm for sleep. albuterol sulfate 2.5 mg /3 mL (0.083 %) solution for nebulization 2.5 mg inhalation Q4H PRN (Reason: shortness of breath or wheezing) Qty: 75 0RF alprazolam 0.5 mg tablet 0.5 mg PO BID PRN (Reason: Anxiety) Qty: 60 2RF Rx Instructions: Do not exceed two tablets a day. prazosin 5 mg capsule See Rx Instructions .ROUTE .COMPLEX Qty: 30 5RF Dose Instruction: TAKE ONE CAPSULE BY MOUTH ONCE DAILY Rx Instructions: TAKE ONE CAPSULE BY MOUTH ONCE DAILY albuterol sulfate [Ventolin HFA] 90 mcg/actuation HFA aerosol inhaler See Rx Instructions .ROUTE .COMPLEX Qty: 18 3RF Dose Instruction: INHALE TWO PUFFS BY MOUTH EVERY 4 HOURS NEEDED SHORTNESS OF BREATH OR WHEEZING Rx Instructions: INHALE TWO PUFFS BY MOUTH EVERY 4 HOURS NEEDED SHORTNESS OF BREATH OR WHEEZING Discharge Order = DC NOW: Discharge Order (Routine); Ordered 07/02/25 Ordered By: Carlo Salinas Referrals: Kwaku Arredondo MD [Physician, Pulmonology] - 1-3 days Chad Johnson DO [Primary Care Provider, [facility]] Discharge Diet: Cardiac Discharge Activity: Resume usual activity Patient Instructions: Altered Mental Status (ED), Opioid Safety, Patient Portal & Sheela Instructions Activity Restrictions/Additional Instructions: - Please reduce your Ambien dose in half - Please reduce your Xanax dose in half - Please use Ambien and Xanax sparingly - Do not use Ambien and Xanax together - Please take steroids as prescribed - Please take antibiotics as prescribed - Follow-up with primary care Discharge Attestations Time Spent in Discharge Care*: greater than 30 min Quality Metrics Clinical Quality Measures [ No reported AMI, CVA or VTE this stay] Coding Level of Care Code 81937 Total time (in minutes) for Discharge: 45 Diagnoses Altered mental status R41.82 Acute hypercapnic respiratory failure J96.02 Encephalopathy G93.40 Encephalopathy type: unspecified encephalopathy Pneumonia J18.9 Sepsis A41.9 Diastolic CHF I50.30 Pulmonary emphysema, unspecified emphysema type J43.9 COPD type: emphysema Emphysema type: unspecified Acute exacerbation of chronic obstructive pulmonary disease (COPD) J44.1 CATERINA (acute kidney injury) N17.9
--- NOTE | 2025-07-02 13:07 | PC.NURSE ---
daughter here pt reviewed meds and apts. asked about bao reminded pt she had sent them home with daughter and daughter akira agreed
== END 2025-07-02 13:09 | disposition home or self-care (01) | DRG 871 ==
LOC: ER 19:38 → ICU 19:59
PROVIDERS: Admitting Provider Family Medicine; Emergency Provider Student in an Organized Health Care Education/Training Program; PCP Family Medicine; Visit Provider Family Medicine
DX: A41.9 Sepsis, unspecified organism (principal); I50.33 Acute on chronic diastolic (congestive) heart failure; J18.9 Pneumonia, unspecified organism; J96.22 Acute and chronic respiratory failure with hypercapnia; G93.40 Encephalopathy, unspecified; J44.1 Chronic obstructive pulmonary disease with (acute) exacerbation; J44.0 Chronic obstructive pulmonary disease with (acute) lower respiratory infection; N17.9 Acute kidney failure, unspecified; E66.2 Morbid (severe) obesity with alveolar hypoventilation; Z99.81 Dependence on supplemental oxygen; R65.20 Severe sepsis without septic shock; J43.9 Emphysema, unspecified; Z68.39 Body mass index [BMI] 39.0-39.9, adult; F41.9 Anxiety disorder, unspecified
CPT/HCPCS: 36415; 36416; 36600; 51702; 70450; 71045; 80048; 80053; 80061; 80306; 80307; 82140; 82805; 82962; 83036; 83605; 83735; 83880; 84443; 84484; 85025; 85610; 86140; 87637; 92507; 92523; 92526; 92610; 93005; 94640; 94660; 96365; 96367; 96372; 96375; 97116; 97161; 99291; J0456; J0692; J0696; J1650; J1938; J2470; J2919; J3490; J7050; J7512; J7626; J9999

== ENCOUNTER 2025-07-31 17:41 | Inpatient (IN) | payer MEDICARE, SELFPAY ==
[2025-07-31] VITALS (12 sets, daily range): BP systolic 122–176; BP diastolic 58–107; PULSE 70–102; RESP 13–24; TEMP 36.6–36.7; O2SAT 42–100; BMI 39.8
--- OUTSIDE RECORDS SUMMARY | 2025-07-31 17:45 | XMS_ITS | Patient Health Record ---
Author Organization [facility] Main Address [address] [place] [address] [place] [address] Care Team Providers Care High Worker Name Role Phone LAURIE PEÑA Primary Care [...] Status W/U Status Risk Notes Problem Cardiomegaly (2792441) Cardiomegaly (I51.7) Active confirmed Problem Chronic obstructive pulmonary disease (68399931) Chronic obstructive pulmonary disease, unspecified (J44.9) Active confirmed Problem Peripheral venous insufficiency (72935006) Venous (peripheral) insufficiency (I87.2) Active confirmed Problem Pulmonary congestion (disorder) (73611093) Chest congestion (R09.89) Active confirmed Problem Tobacco user (461690012) Cigarette nicotine dependence without complication (F17.210) Active confirmed Problem General weakness (10157580) Weakness generalized (R53.1) Active confirmed Problem Acute exacerbation of chronic obstructive airways disease (721903979) COPD with acute exacerbation (J44.1) Active confirmed Problem Heart failure (54399518) Chronic congestive heart failure, unspecified heart failure type (I50.9) Active confirmed Problem Body mass index 40+ - severely obese (097945275) Body mass index [BMI] 40.0-44.9, adult (Z68.41) Active confirmed Problem Smoker (38952767) Smoker (F17.200) Active confi rmed Problem Generalized anxiety disorder (58619936) Generalized anxiety disorder (F41.1) 04/28/20 17 Active confirmed Evan-119 2830- Problem Primary insomnia (7926350) Primary insomnia (F51.01) 01/06/20 14 Active confirmed Evan-119 2830- Problem Localized edema (8217276) Localized edema (R60.0) Active confirmed Problem Morbid obesity (210889742) Morbid obesity (278.01) 04/18/20 15 Inactive confirmed Evan-119 2830- Problem Bronchitis (90762041) Bronchitis, not specified as acute or chronic (490) 05/07/20 12 Inactive confirmed Evan-119 2830- Problem Pain of ear (finding) (514080428) Otalgia, unspecified ear (H92.09) 01/01/20 16 Inactive confirmed Evan-119 2830- Problem Acute bronchitis (89638663) Acute bronchitis due to other specified organisms (J20.8) 08/23/20 16 Inactive confirmed Evan-119 2830- Problem Bronchitis (07842258) Bronchitis, not specified as acute or chronic (J40) 05/14/20 17 Inactive confirmed Evan-119 2830- Problem Stomatitis (57828278) Other forms of stomatitis (K12.1) 04/01/20 17 Inactive confirmed Evan-119 2830- Problem Unspecified menopausal and perimenopausal disorder (N95.9) 04/28/20 17 Inactive confirmed Evan-119 2830- Problem Screening for cardiovascular system disease (401320692) Encounter for screening for cardiovascular disorders (Z13.6) 08/20/20 16 Inactive confirmed Evan-119 2830- Problem 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) 04/01/20 17 Inactive confirmed Evan-119 2830- Problem Low risk (qualifier value) (368100749) Low Risk Level (D07) 01/01/20 18 Inactive confirmed Evan-119 2830- Problem Pedal edema (661795963) Pedal edema (782.3) 11/23/19 13 Inactive confirmed Evan-119 2830- Problem Otalgia (568298670) Otalgia (388.71) 01/06/20 14 Inactive confirmed Evan-119 2830- Problem Insomnia (762272728) Insomnia (307.41) 11/23/19 13 Inactive confirmed Evan-119 2830- Problem Generalized abdominal pain (074262831) Generalized abdominal pain (789.07) 02/14/20 12 Inactive confirmed Evan-119 2830- Problem Urinary tract infection (58653535) Urinary tract infection (595.0) 01/06/20 14 Inactive confirmed Evan-119 2830- Problem Tobacco abuse (5299175232) Tobacco abuse (305.1) 05/07/20 12 Inactive confirmed Evan-119 2830- Problem Umbilical hernia (990061336) Umbilical hernia (553.1) 02/14/20 12 Inactive confirmed Evan-119 2830- Problem Labile blood pressure (337386436) Fluctuating blood pressure (796.4) 11/23/19 13 Inactive confirmed Evan-119 2830- Problem Constipation (92125506) Constipation (564.01) 02/14/20 12 Inactive confirmed Evan-119 2830- Problem Allergic otitis media (46336315) Non-recurrent acute allergic otitis media of right ear (H65.111) Inactive confirmed Problem Wheezing (23943533) Wheezing on expiration (R06.2) Inactive confirmed Problem Ecchymosis (90503655) Ecchymosis (R58) Inactive confirmed Problem Hypoxia (754593827) Hypoxia (R09.02) Inactive confirmed Plan Of Treatment Future Test Test Name Order Date Magnesium (Mg) 04/18/2021 Basic Metabolic Panel (BMP) 04/18/2021 Medications Administered Medication Instructions Date of Administration Dosage Notes Kenalog-40 04/18/2021 2 mL LOT: [id number] EXP: 05/2022 [facility]: [id number] Medical (General) History Medical History History ICD Code COVID-19 MAMMOGRAM: Refuses Surgical History Surgery Date(Month/Year) Hysterectomy
--- OUTSIDE RECORDS SUMMARY | 2025-07-31 17:45 | XMS_ITS | Patient Health Record ---
Author Organization [facility] Address [address] [place], [place] [address] Support Name Relationship Address Phone Keila Moreno Emergency Contact Unknown [phone] Guarantor Unknown [phone] Allergies Allergen (clinical drug ingredient) Drug/Non Drug [...] Status Risk Notes Problem Candidiasis of mouth (67625005) Candidiasis of mouth (112.0) Active confirmed Problem Tobacco user (333197146) Nondependent tobacco use disorder (305.1) Active confirmed Problem Acute conjunctivitis (82511931) Unspecified acute conjunctivitis (372.00) Active confirmed Problem Acute bronchitis (21385045) Acute bronchitis (466.0) Active confirmed Problem Simple chronic bronchitis (84067604) Simple chronic bronchitis (491.0) Active confirmed Problem Acute non-suppurative otitis media (831578625) Otitis Media - Unspecified acute nonsuppurative otitis media (381.00) Active confirmed Plan Of Treatment No Information Medical (General) History Medical History History ICD Code peripheral edema
--- NOTE | 2025-07-31 17:53 | XRR_ITS ---
PROCEDURE INFORMATION: Exam: XR Chest Exam date and time: 07/31/2025 6:18 PM Age: 65 years old Clinical indication: Shortness of breath; Additional info: SOB; Bilateral ext swelling TECHNIQUE: Imaging protocol: Radiologic exam of the chest. Views: 1 view. COMPARISON: CR (CHEST, ) 06/29/2025 4:44 PM FINDINGS: Lungs: Mild atelectasis in the right lung base. The lungs are otherwise clear. No consolidation. Probable emphysema. Pleural spaces: Unremarkable. No pleural effusion. No pneumothorax. Heart/Mediastinum: Mild cardiomegaly. Bones/joints: Unremarkable. XR/XR chest 1V portable [id number] IMPRESSION: No acute findings.
--- NOTE | 2025-07-31 17:58 | ED_ITS ---
HPI - Altered Mental Status 2 General: Chief Complaint: Altered Mental Status Stated Complaint: lower extremities are swollen Time Seen by Provider: 07/31/25 17:50 Source: patient and family Mode of arrival: ambulatory Limitations: no limitations History of Present Illness: 65-year-old female who has a history of CHF along with COPD had a history of hypercapnia in the past as well. Per daughter when she checked on her this morning her pulse ox was in the 60s she does wear 2 L oxygen patient) her pulse ox was 42. States she has had some increasing shortness of breath and wheezing per daughter she had some confusion states she gets like this when she is hypercapnic here she is lethargic but will wake up and answer my questions appropriately. Related Data Previous Rx's ?Medication ?Instructions ?Recorded Oxygen concentrator #1 ea 09/06/24 albuterol sulfate 2.5 mg/3 mL 2.5 mg (3 mL) inhalation Q4H PRN 02/15/25 (0.083 %) solution for nebulization shortness of breat h or wheezing #75 mL citalopram 40 mg tablet 40 mg PO DAILY #90 tabs 0504/06 quetiapine 100 mg tablet (Seroquel) 200 mg (2 x 100 mg ) PO DAILY #60 02/15/25 tabs tiotropium bromide 18 mcg capsule 1 cap inhalation JOLENE LY #60 02/15/25 with inhalation device (Spiriva inhalations with HandiHaler) alprazolam 0.5 mg tablet 0.5 mg PO BID PRN Anxiety #6 0 tabs 05/10/25 prazosin 5 mg capsule See Rx Instructions .Route 0 05/12/25 .COMPLEX #30 caps albuterol sulfate 90 mcg/actuation See Rx Instructions .Route 06/02/25 aerosol inhaler (Ventolin HFA) .COMPLEX #18 grams potassium chloride 20 mEq 20 meq PO DAILY 30 days #30 tabs 07/02/25 tablet,extended release(part/cryst) (Klor-Con M) furosemide 40 mg tablet See Rx Instructions .Route 0 07/11/25 .COMPLEX #60 tabs hydrochlorothiazide 25 mg tablet 25 mg PO DAILY #90 ta bs 07/26/25 ramelteon 8 mg tablet (Rozerem) 8 mg PO .at bedtime #3 0 tabs 10/17/25 Allergies Allergy/AdvReac Type Severity Reaction Status Date / Time amoxicillin AdvReac Intermediate mouth sores Verified 07/26/25 14:56 PFSH ED 2 PFSH: Medical History (Updated 07/31/25 @ 19:22 by Kimberley Ng MD) Pneumonia Congestive heart failure Obesity hypoventilation syndrome Upper respiratory infection Left otitis media Open wound of right forearm DNR (do not resuscitate) discussion Right heart failure Complicated grief Volume overload state of heart Anasarca Anxiety Acute respiratory failure with hypoxia and hypercapnia Tobacco abuse counseling Hypertension Surgical History No significant past surgical history Family History Mother Obesity Hypertension Father Hypertension Heart attack, Onset Age: 78 . Social History Smoking and tobacco/nicotine status: current every day tobacco/nicotine user cigarettes Packs smoked per day: 1.25 Second hand smoke exposure: No Alcohol intake: unknown Substance/Drug Use: unknown Adopted: No Caregiver/support person: Yes Lives independently: Yes Do you think of yourself as: Straight/Heterosexual Current gender identity: Female Female Reproductive History: Spontaneous abortions: No Physical Exam 2 Const: COMMON NORMALS: patient oriented x3 GENERAL APPEARANCE: ill appearing HENMT: COMMON NORMALS: normocephalic and atraumatic HEAD & SCALP: n ormocephalic and atraumatic Neck/C-Spine: COMMON NORMALS: full ROM and supple Chest: COMMONS NORMALS: normal inspection of the chest and normal palpation of entire chest wall Resp: COMMON NORMALS: No retractions EFFORT & INSPECTION: Yes tachypneic and Yes respiratory distress AUSCULTATION: wheezes Cardio: COMMON NORMALS: regular rhythm and No murmurs present (Cardio) R ATE: tachycardic RHYTHM: regular rhythm GI: COMMON NORMALS: Normal to inspection, nondistended, normoactive bowel sounds present, Soft to palpation, non-tender and no masses PALPATION: Yes Soft to palpation Extremity: COMMON NORMALS: normal to inspection and full ROM Neuro: COMMON NORMALS: patient oriented x3, moves all extremities and no focal motor deficits Psych: COMMON NORMALS: mental status grossly normal, Normal thought process present and cooperative THOUGHT PROCESS: Normal thought process present Skin: COMMON NORMALS: no rashes or lesions noted and no wounds GENERAL SKIN EXAM: no rashes or lesions noted Course 2 Vital Signs: Vital signs: Vital Signs Temperature 98.1 F 07/31/25 17:49 Pulse Rate 80 07/31/25 19:11 Respiratory Rate 14 07/31/25 18:42 Blood Pressure 130/78 07/31/25 19:11 Pulse Oximetry 100 07/31/25 19:11 Oxygen Delivery Me thod BiPAP 07/31/25 19:11 Oxygen Flow Rate 30 07/31/25 18:17 Fraction of Inspir ed Oxygen 35 07/31/25 18:18 MDM - Altered Mental Status Medical Decision Making Patient presents here with shortness of breath along with some confusion. Differential includes pneumonia, COPD, CHF, hypercapnia. Patient was found to be hypercapnic here she was also hypoxic here as well. Did place her on BiPAP and she is improving. She has no signs of x-ray on pneumonia no signs of pulmonary emboli. Her EKG here was interpreted by me normal sinus rhythm heart rate of [address] elevation QRS 93 QTc 441. I did interpret her chest x-ray as well that showed no acute abnormality. Patient was given a breathing treatment here along with Solu-Medrol and Lasix I spoke to the hospitalist and will admit at this time. Medical Records I reviewed the patient's medical records. Lab Data I reviewed the patient's lab results. 07/31/25 18:03 07/31/25 18:03 Radiology Impressions Chest X-Ray 07/31/25 17:53 IMPRESSION: No acute findings. Laboratory Results WBC 5.45 10^3/uL (3.29-11.43) 07/31/25 18:03 RBC 3.72 10^6/uL (3.85-5.65) L 07/31/25 18:03 Hgb 11.00 g/dL (11.27-16.99) L 07/31/25 18:03 Hct 38.0 % (36-47) 07/31/25 18:03 MCV 102.2 fl (85-98) H 07/31/25 18:03 MCH 29.6 pg (27-33) 07/31/25 18:03 MCHC 28.9 g/dL (30-55) L 07/31/25 18:03 RDW 16.5 % (12.1-15.1) H 07/31/25 18:03 Plt Count 236 10^3/cmm (157-399) 07/31/25 18:03 MPV 9.8 fL (7.4-10.4) 07/31/25 18:03 Neut % (Auto) 72.2 % 07/31/25 18:03 Lymph % (Auto) 17.6 % 07/31/25 18:03 Clark % (Auto) 8.3 % 07/31/25 18:03 Eos % (Auto) 0.9 % 07/31/25 18:03 Baso % (Auto) 0.4 % 07/31/25 18:03 Neut # (Auto) 3.94 10^3/uL (1.8-7.7) 07/31/25 18:03 Lymph # (Auto) 1.0 10^3/uL (0.8-4.8) 07/31/25 18:03 Clark # (Auto) 0.5 10^3/uL (0.2-0.9) 07/31/25 18:03 Eos # (Auto) 0.1 10^3/uL (0.0-0.8) 07/31/25 18:03 Baso # (Auto) 0.0 10^3/uL (0.0-0.1) 07/31/25 18:03 Nucleated RBC % (auto) 0 % 07/31/25 18:03 Nucleated RBCs # 0.0 /100WBC 07/31/25 18:03 Specimen Type Arterial 07/31/25 17:52 Sample Site Radial, right 07/31/25 17:52 ABG pH 7.29 (7.35-7.45) L 07/31/25 17:52 ABG pCO2 78.0 mmHg (35-45) H* 07/31/25 17:52 ABG pO2 82.8 mmHg (80.0-100.0) 07/31/25 17:52 ABG HCO3 37.2 mmol/L (22-26) H 07/31/25 17:52 ABG Base Excess 8.2 mmol/L (-2.0-2.0) H 07/31/25 17:52 Ismael Test Pos 07/31/25 17:52 Hematocrit 34.3 % (37-47) L 07/31/25 17:52 Hgb O2 Saturation 84.1 % (95-100) L 07/31/25 17:52 Carboxyhemoglobin 11.9 %THgb (0.4-20.1) 07/31/25 17:52 Methemoglobin 0.8 % (0.4-1.5) 07/31/25 17:52 Total Hemoglobin 11.2 g/dL (12-16) L 07/31/25 17:52 O2 Delivery Device Oxy mask 07/31/25 17:52 O2 Liters/Min 7.0 % 07/31/25 17:52 Supervisor Process Testing ID Walci 07/31/25 17:52 Sodium 139 mmol/L (136-145) 07/31/25 18:03 Potassium 4.4 mmol/L (3.5-5.1) 07/31/25 18:03 Chloride 93 mmol/L (98-107) L 07/31/25 18:03 Carbon Dioxide 35 mmol/L (22-29) H 07/31/25 18:03 Anion Gap 15.4 (5-19) 07/31/25 18:03 BUN 24 mg/dL (8-23) H 07/31/25 18:03 Creatinine 1.0 mg/dL (0.5-0.9) H 07/31/25 18:03 GFR Calculation 55.5 mL/min (90-130) L 07/31/25 18:03 Glucose 96 mg/dL (65-115) 07/31/25 18:03 Calculated Osmolality 292 mOsm/kg (285-295) 07/31/25 18:03 Calcium 8.8 mg/dL (8.5-10.5) 07/31/25 18:03 Total Bilirubin 0.4 mg/dL (0.15-1.2) 07/31/25 18:03 AST 11 U/L (0-32) 07/31/25 18:03 ALT 6 U/L (0-33) 07/31/25 18:03 Alkaline Phosphatase 211 U/L (35-105) H 07/31/25 18:03 NT-Pro-B Natriuret Pep 2067 pg/mL (0-125) H 07/31/25 18:03 Total Protein 7.5 g/dL (6.6-8.7) 07/31/25 18:03 Albumin 3.9 g/dL (3.5-5.2) 07/31/25 18:03 Globulin 3.6 g/dL (1.3-4.6) 07/31/25 18:03 Influenza A (PCR) Negative (Negative) 07/31/25 18:47 Influenza Type B (PCR) Negative (Negative) 07/31/25 18:47 RSV (PCR) Negative (Negative) 07/31/25 18:47 SARS-CoV-2 (PCR) Negative (Negative) 07/31/25 18:47 XR interpretation done by ED provider, pending radiology final review ED provider radiology interpretation(s): cxr: no pneumonia EKG Data EKG 1: I personally reviewed and interpreted this EKG as follows: EKG interpretation date: 07/31/25 EKG interpretation time: 20:03 Interpretation: nsr hr [address] elevation qrs 93 qtc 441 Critical Care Time 2 Critical Care Time: Critical Care Time: Yes Total Critical Care Time: 50 Attestation: The high probability of a clinically significant, sudden or life threatening deterioration of the patient's resp system(s) required my full and direct attention, intervention and personal management. The critical care time is as shown. This time is in addition to time spent performing any reported procedures but includes the following: [x] Data and vital sign review and interpretation [x] Patient assessment, examination and intervention [x] Documentation [x] Medication orders and management Discharge Plan Discharge Patient Disposition: Admitted As Inpatient Admit Provider: Allyson Hyatt Clinical Impression: COPD (chronic obstructive pulmonary disease), Congestive heart failure, Acute respiratory failure with hypoxia and hypercapnia Condition: Stable Coding Level of Care Code ED Newspaper Stuffer for Chg Cherry
[2025-07-31 18:03] LABS: ABG PH Result 7.29 (7.35-7.45); Arterial Blood Gas Hematocrit 34.3 % (37-47); Blood Gas Allen Test Pos; Blood Gas LPM 7.0 %; Blood Gas Operator Identificat WALCI; Blood Gas Sample Site Radial, right; Blood Gas Sample Type Arterial; Carboxyhemoglobin 11.9 %THgb (0.4-20.1); HCO3 ABG 37.2 mmol/L (22-26); Methemoglobin 0.8 % (0.4-1.5); PO2 ABG 82.8 mmHg (80.0-100.0)
--- NOTE | 2025-07-31 18:03 | PC.NURSE ---
DUE TO PATIENT O2 SATURATION, PLACED ON OXY MASK AT 6 L. PATIENT IMMEDIATELY MORE ALERT TO SELF AND SITUATION.
[2025-07-31 18:04] LABS: ABG PCO2 78.0 mmHg (35-45)
[2025-07-31 18:08] LABS: Hematocrit 38.0 % (36-47); Hemoglobin 11.00 g/dL (11.27-16.99); Mean Corpuscular HGB Conc 28.9 g/dL (30-55); Mean Corpuscular Hemoglobin 29.6 pg (27-33); Mean Corpuscular Volume 102.2 fl (85-98); Nucleated Red Blood Cells % 0 %; Platelet Count 236 10^3/cmm (157-399); Red Blood Count 3.72 10^6/uL (3.85-5.65); White Blood Count 5.45 10^3/uL (3.29-11.43)
[2025-07-31 18:37] LABS: Alanine Aminotransferase 6 U/L (0-33); Albumin Level 3.9 g/dL (3.5-5.2); Alkaline Phosphatase 211 U/L (35-105); Anion Gap 15.4 (5-19); Aspartate Amino Transferase 11 U/L (0-32); Blood Urea Nitrogen 24 mg/dL (8-23); Calcium 8.8 mg/dL (8.5-10.5); Carbon Dioxide 35 mmol/L (22-29); Chloride 93 mmol/L (98-107); Creatinine Clr Calc Pharmacy 75.0226; Globulin 3.6 g/dL (1.3-4.6); Glucose 96 mg/dL (65-115); NT Pro B Type Natriuretic Pept 2067 pg/mL (0-125); Osmolality Calculated 292 mOsm/kg (285-295); Potassium 4.4 mmol/L (3.5-5.1); Sodium 139 mmol/L (136-145); Total Protein 7.5 g/dL (6.6-8.7)
[2025-07-31] MEDS: FUROsemide 10 mg/mL SDV 10mL 60 MG IVP (18:50)
[2025-07-31] MEDS: methylPREDNISolone sod succ 125 mg/2 mL INJ IV (18:51)
--- NOTE | 2025-07-31 19:22 | ECG_ITS ---
[email or web address] Date: 2025-[facility]31 Pat Name: Ramonita Balbuena Department: Room: [facility] [place] Gender: Female Records Supervisor: : 1960 Requested By: Kimberley Ng Order Number: [id number] Navi MD: Moni Pepe M.D. Measurements Intervals [place] Rate: 80 P: 75 WA: 174 QRS: 60 QRSD: 93 T: 50 QT: 406 QTc: 469 Interpretive Statements SINUS RHYTHM MINIMAL ST DEPRESSION [0.025+ mV ST DEPRESSION] Compared to ECG 06/30/2025 00:26:00 ST (T wave) deviation now present T-wave abnormality no longer present Possible ischemia no longer present Electronically Signed On 08-02-2025 19:26:42 CDT by Moni Pepe M.D. [email or web address]
[2025-07-31 19:26] LABS: Respiratory Syncytial Virus Ce NEGATIVE (Negative); SARS-CoV-2 PCR NEGATIVE (Negative)
[2025-07-31 20:32] LABS: Procalcitonin 0.07 ng/mL (0-0.5); Thyroid Stimulating Hormone 2.81 uIU/mL (0.27-4.20)
[2025-07-31 20:42] LABS: Magnesium 2.2 mg/dL (1.7-2.3)
[2025-07-31] MEDS: cefTRIAXone 1,000 mg SDV 1000 MG IVP (21:22)
[2025-07-31] MEDS: heparin 5,000 unit/mL INJ 1 mL 5000 UNIT SUBCUT (21:23)
[2025-07-31] MEDS: FUROsemide 10 mg/mL SDV 2mL 20 MG IVP (21:53)
--- NOTE | 2025-07-31 22:45 | P.HP_ITS ---
Providers/Chief Complaint 2 Admitting Physician: Allyson Hyatt MD Primary Care Provider: Chad Johnson DO Chief Complaint: lower extremities are swollen History of Present Illness As per the previous retrospective notes and the patient Ramonita Balbuena is a 65 year old female with past medical history of obesity hypoventilation syndrome, CHF, chronic hypercapnic respiratory failure, hypertension came to ER with shortness of breath and altered mentation. Of note the patient was admitted as a case of pneumonia 2 weeks ago and was treated for it. It was supposedly for her to have CPAP at home during sleep. However it was not arranged/or due to some other technical or unknown reasons the patient was unable to get it postdischarge. She came with shortness of breath and associate with mild chills. There was some no low-grade fever reported however not high-grade fever. Patient has baseline lower leg swellings but did not increase in the last couple of days. The patient also found to have some features of redness at the lower legs which is more prominent left leg but no tenderness or pain while movement. The patient uses baseline 2 pillows during sleep on a recliner chair and did not had any orthopnea or PND. No history of chest pain or chest pressure. No dizziness syncope or presyncope. No nausea vomiting or diarrhea. And no change in her urinary or bowel habits. The patient is compliant with her medications. The patient is currently actively smoking and is a known case of COPD on inhalers but is not compliant to her inhalers. Review of Systems 2 General: Reports: 10 or more systems reviewed and unremarkable except in HPI and below Medications/Allergies Home Medications ?Medication ?Instructions ?Recorded ?Confirmed ?Last Taken ?Type Oxygen concentrator #1 ea 09/06/24 07/26/25 Unkn own Rx albuterol sulfate 2.5 mg/3 mL 2.5 mg (3 mL) inhalation Q4H PRN 02/15/25 07/26/25 Unknown Rx (0.083 %) solution for nebulization shortness of breat h or wheezing #75 mL citalopram 40 mg tablet 40 mg PO DAILY #90 tabs 05/04/0607/26/25 Unknown Rx quetiapine 100 mg tablet (Seroquel) 200 mg (2 x 100 mg ) PO DAILY #60 02/15/25 07/26/25 Unknown Rx tabs tiotropium bromide 18 mcg capsule 1 cap inhalation JOLENE LY #60 02/15/25 07/26/25 Unknown Rx with inhalation device (Spiriva inhalations with HandiHaler) alprazolam 0.5 mg tablet 0.5 mg PO BID PRN Anxiety #6 0 tabs 05/10/25 07/26/25 Unknown Rx prazosin 5 mg capsule See Rx Instructions .Route 0 05/12/25 07/26/25 Unknown Rx .COMPLEX #30 caps albuterol sulfate 90 mcg/actuation See Rx Instructions .Route 06/02/25 07/26/25 Unknown Rx aerosol inhaler (Ventolin HFA) .COMPLEX #18 grams potassium chloride 20 mEq 20 meq PO DAILY 30 days #30 tabs 07/02/25 07/26/25 Unknown Rx tablet,extended release(part/cryst) (Klor-Con M) furosemide 40 mg tablet See Rx Instructions .Route 0 07/11/25 07/26/25 Unknown Rx .COMPLEX #60 tabs hydrochlorothiazide 25 mg tablet 25 mg PO DAILY #90 ta bs 07/26/25 07/26/25 Unknown Rx ramelteon 8 mg tablet (Rozerem) 8 mg PO .at bedtime #3 0 tabs 07/29/25 07/29/25 Unknown Rx Allergies Allergy/AdvReac Type Severity Reaction Status Date / Time amoxicillin AdvReac Intermediate mouth sores Verified 07/26/25 14:56 PFSH Acute 2 PFSH: Medical History (Updated 07/31/25 @ 22:54 by Allyson Hyatt MD) Pneumonia Congestive heart failure Obesity hypoventilation syndrome Upper respiratory infection Left otitis media Open wound of right forearm DNR (do not resuscitate) discussion Right heart failure Complicated grief Volume overload state of heart Anasarca Anxiety Acute respiratory failure with hypoxia and hypercapnia Tobacco abuse counseling Hypertension Surgical History No significant past surgical history Family History Mother Obesity Hypertension Father Hypertension Heart attack, Onset Age: 78 . Social History Smoking and tobacco/nicotine status: current every day tobacco/nicotine user cigarettes Packs smoked per day: 1.25 Second hand smoke exposure: No Alcohol intake: unknown Substance/Drug Use: unknown Adopted: No Caregiver/support person: Yes Lives independently: Yes Do you think of yourself as: Straight/Heterosexual Current gender identity: Female Female Reproductive History: Spontaneous abortions: No Vitals/I&O/Wt Last Vital Signs Temp 97.8 F 07/31/25 21:00 Pulse 79 07/31/25 22:00 Resp 14 07/31/25 18:42 BP 135/103 07/31/25 22:00 Pulse Ox 96 07/31/25 22:00 O2 Del Method BiPAP 07/31/25 21:00 O2 Flow Rate 30 07/31/25 18:17 FiO2 35 07/31/25 21:00 Weight last 48 hrs Weight 123.468 kg Weight 118.841 kg Physical Exam 2 Narrative: . General: Alert and oriented, morbidly obese male in NAD lying comfortably without any distress and able to speak full sentences HEENT: Normocephalic, atraumatic, grossly unremarkable exam Cardio: normal rate rhythm, normal S1-S2 without any murmurs, limited exam due to patient body habitus, cannot comment on the JVD due to short neck Respiratory: Bilateral diffuse wheezes heard on auscultation with mild coarse crackles and harsh breathing, no stridor, limited exam due to patient body habitus GI: Abdomen soft, mild tender at the epigastric side and right upper quadrant, nondistended, normoactive bowel sounds present all 4 quadrants, no organomegaly is appreciated however limited exam due to body habitus Neuro: intact cranial nerves motor and sensory and cerebellar/coordination function without any focal neurological deficit Behavior: Appropriate and cooperative Extremities: Adequate palpable pulses, bilateral pedal edema with redness at the lower extremities near the ankles with more prominence on the left side and mild hot to touch in comparison to the normal skin Skin: As mentioned above Data 07/31/25 18:03 07/31/25 18:03 A&P Assessment and plan 1. Acute respiratory failure with hypoxia and hypercapnia: BiPAP and to monitor blood gas in the morning Continue ceftriaxone and azithromycin for possible pneumonia Methylprednisolone 60 mg daily for 4 to 5 days DuoNebs daily Lasix 20 mg IV twice daily and to be given based on the patient hemodynamics/blood pressure Monitor intake and output Maintain her pulse ox in the range of 88 to 92% considering patient has chronic hypercapnia secondary to OHS To be discharged with NIV and to make sure the patient gets at home 2. Essential hypertension: Patient medication to be reconciled, currently hold it since the blood pressure is normal 3. Chronic diastolic congestive heart failure: Currently stable, Patient medication need reconciliation, Lasix 20 mg IV twice daily to continue 4. Cellulitis: Left leg possible features of mild cellulitis Ceftriaxone to continue and to demarcate and monitor hemodynamics and any fever spikes 5. Altered mental status: Secondary to hypercapnia, BiPAP to continue and to monitor patient neurochecks every shift 6. PTSD (post-traumatic stress disorder): Stable, needs medication reconciliation before resumption for her comorbidities 7. Tobacco abuse: Patient currently actively smoking, emphasis have been provided about abstinence from smoking Patient will follow-up at discharge 8. Obesity: Stable, to address it as outpatient Plan: vte: Heparin twice daily Diet: Cardiac diet with aspiration precaution PDMP PDMP Reviewed: Not Reviewed Attestations 2 Medical Necessity Statement*: Ramonita Balbuena's hospital stay will require greater than 2 midnights for acute hypercapnic and hypoxemic failure, left leg mild cellulitis Time Spent in Patient Care: 16 - 35 minutes (>than 50% of time sp ent in counselling and/or direct pt care on unit) . Critical Care Time: The high probability of a clinically significant, sudden or life threatening deterioration, as referenced in this documentation, required my full and direct attention, intervention and personal management. The critical care time shown is in addition to time spent performing any reported separately billable procedures and includes the following: [x] Data and vital sign review and interpretation [x ] Patient assessment, examination and intervention [x] Medication orders and management [x] Patient/Family updates as able [x] Care Coordination and Documentation. Critical Care Time (min): 35 Other Attestations: Patient condition has been discussed at length with the patient/family, I have independently reviewed the chart labs imaging/diagnostics/EKG. the goals of care and code status with the patient/family/NOK/legal computer help desk representative, and documented accordingly. The patient/family has been informed about the current condition and further plan of care. Agreed with the plan of care and understood without any language barrier. Every effort was made to ensure accuracy of crime scene investigator. Any obvious errors or omissions should be clarified with the author of the document. Coding Level of Care Code Critical Care >/= 30 minutes Diagnoses Acute respiratory failure with hypoxia and hypercapnia J96.01; J96.02 Essential hypertension I10 Chronic diastolic congestive heart failure I50.32 Heart failure chronicity: chronic Cellulitis L03.90 Altered mental status R41.82 PTSD (post-traumatic stress disorder) F43.10 Tobacco abuse Z72.0 Obesity E66.9
[2025-08-01] VITALS (48 sets, daily range): BP systolic 103–162; BP diastolic 58–90; PULSE 65–99; RESP 13–24; TEMP 36.4–37; O2SAT 82–98
[2025-08-01 03:26] LABS: Coronavirus 229E,HKU1,NL63,OC4 Not Detected (NOT DETECT); Parainfluenza Virus Type 1 Not Detected (NOT DETECT); Parainfluenza Virus Type 2 Not Detected (NOT DETECT); Parainfluenza Virus Type 3 Not Detected (NOT DETECT); Parainfluenza Virus Type 4 Not Detected (NOT DETECT); SARS-COV-2 Not Detected (NOT DETECT)
[2025-08-01 06:00] LABS: Base Excess VBG 15.2 mmol/L (-3.0-3.0); Blood Gas Allen Test Pos; Blood Gas Operator Identificat BD; Blood Gas Sample Site VEIN; Blood Gas Sample Type Venous; HCO3 VBG 40.6 mmol/L (24-28); PCO2 VBG 52.2 mmHg (41-51); PO2 VBG 45.2 mmHg (25-40); Venous Blood Gas Hematocrit 35.6 % (37-47); pH VBG 7.50 (7.32-7.42)
[2025-08-01 06:02] LABS: Hematocrit 36.6 % (36-47); Hemoglobin 10.80 g/dL (11.27-16.99); Mean Corpuscular HGB Conc 29.5 g/dL (30-55); Mean Corpuscular Hemoglobin 29.7 pg (27-33); Mean Corpuscular Volume 100.5 fl (85-98); Nucleated Red Blood Cells % 0 %; Platelet Count 199 10^3/cmm (157-399); Red Blood Count 3.64 10^6/uL (3.85-5.65); White Blood Count 3.76 10^3/uL (3.29-11.43)
[2025-08-01 06:18] LABS: Alanine Aminotransferase 6 U/L (0-33); Albumin Level 3.7 g/dL (3.5-5.2); Alkaline Phosphatase 200 U/L (35-105); Anion Gap 13.0 (5-19); Aspartate Amino Transferase 9 U/L (0-32); Blood Urea Nitrogen 19 mg/dL (8-23); Calcium 8.5 mg/dL (8.5-10.5); Carbon Dioxide 36 mmol/L (22-29); Chloride 93 mmol/L (98-107); Creatinine Clr Calc Pharmacy 85.1903; Globulin 3.0 g/dL (1.3-4.6); Glucose 134 mg/dL (65-115); Osmolality Calculated 290 mOsm/kg (285-295); Potassium 4.0 mmol/L (3.5-5.1); Sodium 138 mmol/L (136-145); Total Protein 6.7 g/dL (6.6-8.7)
[2025-08-01] MEDS: FUROsemide 10 mg/mL SDV 2mL 20 MG IVP (09:09)
[2025-08-01] MEDS: heparin 5,000 unit/mL INJ 1 mL 5000 UNIT SUBCUT ×2 (09:09→21:18)
--- NOTE | 2025-08-01 09:37 | P.PN_ITS ---
Subjective 2 Subjective: 65-year-old female admitted wi th hypercapnic respiratory failure and pH 7.29 pCO2 78 improved with BiPAP to pH 7.5 pCO2 52. Respiratory panel is negative. Patient continues to smoke 1.25 packs/day cigarettes and was not able to have CPAP arranged in the interval from her last admission with discharge on 07/02/2025 and this admission. Patient has worn BiPAP all night. She is asking to go home today or the latest tomorrow. Vitals/I&O/Wt Last Vital Signs Temp 98.5 F 08/01/25 05:09 Pulse 76 08/01/25 08:16 Resp 18 08/01/25 08:16 BP 153/79 08/01/25 01:00 Pulse Ox 93 08/01/25 08:16 O2 Del Method Nasal Cannula 08/01/25 08:16 O2 Flow Rate 4 08/01/25 08:16 FiO2 35 08/01/25 04:13 07/31/25 08/01/25 08/01/25 22:59 06:59 14:59 Intake Total 250 / 250 Output Total 1400 / 1400 1000 / 2400 Balance -1150 / -1150 -1000 / -2150 Weight last 48 hrs Weight 123.559 kg Weight 123.559 kg Weight 123.468 kg Weight 118.841 kg Physical Exam 2 Narrative: General well-developed well-nourished morbidly obese female in no acute cardiopulmonary stress Oropharynx Mallampati 1-2 CV regular rate and rhythm Lungs good air movement with prolonged respiratory phase and expiratory wheezes Abdomen positive bowel tones soft obese nontender Calves 2+ bilateral pretibial edema with mild tenderness there is erythema bilaterally consistent with chronic venous stasis Data 08/01/25 05:55 08/01/25 05:55 A&P Assessment and plan 1. Acute respiratory failure with hypoxia and hypercapnia: BiPAP and blood gas much improved this morning Continue ceftriaxone and azithromycin for possible pneumonia Methylprednisolone 60 mg daily for 4 to 5 days steroid treatment DuoNebs daily Lasix 40 mg IV twice daily and to be given based on the patient hemodynamics/blood pressure Monitor intake and output Maintain her pulse ox in the range of 88 to 91% considering patient has chronic hypercapnia secondary to OHS To be discharged with NIV and to make sure the patient gets at home 2. Essential hypertension: Resume prazosin. Continue diuretic 3. Diastolic CHF: Continue with diuresis and BiPAP Lasix 40 mg IV twice daily to continue and add Zaroxolyn 5 mg daily 4. Venous stasis dermatitis of both lower extremities: Left leg possible features of mild cellulitis Ceftriaxone to continue and to demarcate and monitor hemodynamics and any fever spikes 5. Altered mental status: Secondary to hypercapnia, BiPAP to continue and to monitor patient neurochecks every shift. Monitor for over sedation with Seroquel 6. PTSD (post-traumatic stress disorder): Stable, needs medication reconciliation before resumption for her comorbidities 7. Tobacco abuse: Patient currently actively smoking over a pack a day Patient will follow-up at discharge Counseled and started on nicotine patch 8. Obesity: Stable, to address it as outpatient. Recommended weight loss Plan: vte: Heparin twice daily Diet: Cardiac diet with aspiration precaution PDMP PDMP Reviewed: Not Reviewed Attestations 2 Medical Necessity Statement*: Patient miley in the hospital for BiPAP diuresis and we will crier greater than 2 midnight in the hospital Coding Level of Care Code Acute Code for Chg Fwd Diagnoses Acute respiratory failure with hypoxia and hypercapnia J96.01; J96.02 Essential hypertension I10 Chronic diastolic congestive heart failure I50.32 Venous stasis dermatitis of both lower extremities I87.2 Altered mental status R41.82 PTSD (post-traumatic stress disorder) F43.10 Tobacco abuse Z72.0 Obesity E66.9 Time Spent (min) 40
[2025-08-01] MEDS: FUROsemide 10 mg/mL SDV 4mL 40 MG IVP ×2 (12:56→21:19)
[2025-08-01] MEDS: methylPREDNISolone sod succ 125 mg/2 mL INJ 60 MG IVP (21:17)
[2025-08-02] VITALS (25 sets, daily range): BP systolic 127–157; BP diastolic 67–88; PULSE 70–93; RESP 13–26; TEMP 36.5–36.9; O2SAT 87–96
[2025-08-02] MEDS: MELATONIN 3 MG TABLET PO (00:14)
[2025-08-02] MEDS: CITALOPRAM 40 MG TABLET PO (05:01)
--- NOTE | 2025-08-02 05:23 | PC.NURSE ---
Seroquel dose was not given. The dose was timed for 0500, however, the note on the MAR said to give the medication at 8pm. After discussion with patient, she did not want the medication.
[2025-08-02] MEDS: heparin 5,000 unit/mL INJ 1 mL 5000 UNIT SUBCUT (08:41)
[2025-08-02] MEDS: FUROsemide 10 mg/mL SDV 4mL 40 MG IVP (08:45)
--- NOTE | 2025-08-02 08:58 | XRR_ITS ---
PROCEDURE INFORMATION: Exam: XR Chest Exam date and time: 08/02/2025 9:06 AM Age: 65 years old Clinical indication: Cardiovascular condition or disease and lung condition and disease; Congestive heart failure (chf); Cause unknown; Type unknown; Respiratory failure; Status not specified; Additional info: Follow up chf and respiratory failure TECHNIQUE: Imaging protocol: Radiologic exam of the chest. Views: 1 view. COMPARISON: CR (CHEST, ) 07/31/2025 6:18 PM FINDINGS: Lungs: Slight probable atelectasis and/or fibrosis lung bases bilaterally. Some of the opacity over lower thorax may be due to superimposed densities, overlap. Pleural spaces: No large or obvious pneumothorax nor pleural effusion seen. Heart/Mediastinum: Heart size appears slightly enlarged, slightly decreased. Vasculature: Atherosclerotic disease. Bones/joints: Degenerative changes spine. Other findings: Patient appears rotated slightly to the right. XR/XR chest 1V portable [id number] IMPRESSION: Slight probable atelectasis and/or fibrosis lung bases bilaterally.
[2025-08-02 10:36] LABS: Anion Gap 16.1 (5-19); Blood Urea Nitrogen 32 mg/dL (8-23); Calcium 8.6 mg/dL (8.5-10.5); Carbon Dioxide 35 mmol/L (22-29); Chloride 91 mmol/L (98-107); Creatinine Clr Calc Pharmacy 75.2287; Glucose 191 mg/dL (65-115); Magnesium 2.4 mg/dL (1.7-2.3); Osmolality Calculated 298 mOsm/kg (285-295); Potassium 4.1 mmol/L (3.5-5.1); Sodium 138 mmol/L (136-145)
--- NOTE | 2025-08-02 13:25 | P.DS_ITS ---
Discharge Providers Date of Admission: 07/31/25 19:10 Date of Discharge: August 02, 2025 Attending Provider at Admission: Allyson Hyatt MD Attending Provider at Discharge: Brant Pelaez MD Primary Care Provider: Chad Johnson DO Diagnoses at Discharge Discharge Diagnosis 1. Acute respiratory failure with hypoxia and hypercapnia: Details from hospital stay: Patient is treated for COPD exacerbation and congestive heart failure with fluid overload from cor pulmonale with diuresis primarily steroids and nebulizers concomitantly. She was also given azithromycin for possible bronchitis but this is mostly fluid overload. Patient's pCO2 initially 78 dropped to 52 The patient was counseled regarding smoking cessation CPAP and BiPAP leg elevation weight loss and reasonably receptive but per her own admission and daughter's admission patient has never complied in past after discharge 2. Essential hypertension: Details from hospital stay: Stable stop HCTZ. See change in diuretic 3. Chronic diastolic congestive heart failure: Details from hospital stay: Increase furosemide to 40 mg twice a day potassium 20 mg twice a day and Zaroxolyn started at 2.5 mg daily 4. Venous stasis dermatitis of both lower extremities: Details from hospital stay: Improved continue diuretics, treatment for sleep apnea and obesity hypoventilation as well as PRIMO hose and elevation of legs 5. Altered mental status: Details from hospital stay: Resolved 6. PTSD (post-traumatic stress disorder): Details from hospital stay: Stable 7. Tobacco abuse: Details from hospital stay: Patient counseled regarding smoking cessation and started on nicotine patch 8. Obesity: Details from hospital stay: Patient started on 1500-calorie weight loss diet Reason for Visit Reason for Visit: lower extremities are swollen Brief History: As per the previous retrospective notes and the patient Ramonita Balbuena is a 65 year old female with past medical history of obesity hypoventilation syndrome, CHF, chronic hypercapnic respiratory failure, hypertension came to ER with shortness of breath and altered mentation. Of note the patient was admitted as a case of pneumonia 2 weeks ago and was treated for it. It was supposedly for her to have CPAP at home during sleep. However it was not arranged/or due to some other technical or unknown reasons the patient was unable to get it postdischarge. She came with shortness of breath and associate with mild chills. There was some no low-grade fever reported however not high-grade fever. Patient has baseline lower leg swellings but did not increase in the last couple of days. The patient also found to have some features of redness at the lower legs which is more prominent left leg but no tenderness or pain while movement. The patient uses baseline 2 pillows during sleep on a recliner chair and did not had any orthopnea or PND. No history of chest pain or chest pressure. No dizziness syncope or presyncope. No nausea vomiting or diarrhea. And no change in her urinary or bowel habits. The patient is compliant with her medications. The patient is currently actively smoking and is a known case of COPD on inhalers but is not compliant to her inhalers. Hospital Course Hospital Course Patient was admitted and started on BiPAP diuresis wearing BiPAP 2 hours twice a day plus all night. Our settings today was 16/6 FiO2 35% backup rate 12. On nasal cannula O2 she is at 4 L with saturations between 80 and 93 lower when she is talking Patient is accompanied by her daughter Keila. They report multiple admissions. I see that CO2 2020 68.8, 2023 72.13 June 2025 72.2 in July 2025 78.0. With BiPAP VBG showed pH 7.50 pCO2 52.2 during this admission after BiPAP Patient was diuresed with furosemide 40 mg IV twice a day Zaroxolyn 5 mg p.o. daily and potassium replacement and voided 6 L yesterday. Chronic venous stasis dermatitis is improved. She is started on PRIMO hose. Patient is discharged home with increased furosemide to 40 mg p.o. twice daily from once a day and addition of Zaroxolyn 2.5 mg daily. She is to weigh on arrival at home. Her daughter is helping her manage her meds Patient has a long history of noncompliance with smoking cessation, leg elevation, taking her medications according to how they are prescribed. In the past she had avoided diuretics due to peeing too much or taken too many sleeping pills due to not sleeping well. She is counseled regarding the pitfalls and dangers of not following recommended therapy. Physical Exam Narrative: General well-developed well-nourished morbidly obese female in no acute cardiopulmonary stress Oropharynx Mallampati 1-2 CV regular rate and rhythm Lungs good air movement with prolonged respiratory phase and mild expiratory wheezes Abdomen positive bowel tones soft obese nontender Calves 1+ bilateral pretibial edema with min tenderness and there is mild erythema bilaterally consistent with chronic venous stasis improved from yesterday Discharge Data Studies Completed and Pending Completed Studies During Hospitalization Category Date Time Status XR chest 1V portable [id number] Routine Exams 08/02/25 08:58 Completed XR chest 1V portable [id number] Stat Exams 07/31/25 17:53 Completed Radiology Impressions Chest X-Ray 08/02/25 08:58 IMPRESSION: Slight probable atelectasis and/or fibrosis lung bases bilaterally. Laboratory Results WBC 3.76 10^3/uL (3.29-11.43) 08/01/25 05:55 RBC 3.64 10^6/uL (3.85-5.65) L 08/01/25 05:55 Hgb 10.80 g/dL (11.27-16.99) L 08/01/25 05:55 Hct 36.6 % (36-47) 08/01/25 05:55 MCV 100.5 fl (85-98) H 08/01/25 05:55 MCH 29.7 pg (27-33) 08/01/25 05:55 MCHC 29.5 g/dL (30-55) L 08/01/25 05:55 RDW 16.7 % (12.1-15.1) H 08/01/25 05:55 Plt Count 199 10^3/cmm (157-399) 08/01/25 05:55 MPV 9.4 fL (7.4-10.4) 08/01/25 05:55 Neut % (Auto) 82.1 % 08/01/25 05:55 Lymph % (Auto) 15.7 % 08/01/25 05:55 [place] % (Auto) 0.8 % 08/01/25 05:55 Eos % (Auto) 0.0 % 08/01/25 05:55 Baso % (Auto) 0.3 % 08/01/25 05:55 Neut # (Auto) 3.09 10^3/uL (1.8-7.7) 08/01/25 05:55 Lymph # (Auto) 0.6 10^3/uL (0.8-4.8) L 08/01/25 05:55 [place] # (Auto) 0.0 10^3/uL (0.2-0.9) L 08/01/25 05:55 Eos # (Auto) 0.0 10^3/uL (0.0-0.8) 08/01/25 05:55 Baso # (Auto) 0.0 10^3/uL (0.0-0.1) 08/01/25 05:55 Nucleated RBC % (auto) 0 % 08/01/25 05:55 Nucleated RBCs # 0.0 /100WBC 08/01/25 05:55 Specimen Type Venous 08/01/25 05:55 Sample Site Vein 08/01/25 05:55 ABG pH 7.29 (7.35-7.45) L 07/31/25 17:52 ABG pCO2 78.0 mmHg (35-45) H* 07/31/25 17:52 ABG pO2 82.8 mmHg (80.0-100.0) 07/31/25 17:52 ABG HCO3 37.2 mmol/L (22-26) H 07/31/25 17:52 ABG Base Excess 8.2 mmol/L (-2.0-2.0) H 07/31/25 17:52 Ismael Test Pos 08/01/25 05:55 VBG pH 7.50 (7.32-7.42) H 08/01/25 05:55 VBG pCO2 52.2 mmHg (41-51) H 08/01/25 05:55 VBG pO2 45.2 mmHg (25-40) H 08/01/25 05:55 VBG HCO3 40.6 mmol/L (24-28) H 08/01/25 05:55 VBG Base Excess 15.2 mmol/L (-3.0-3.0) H 08/01/25 05:55 VBG Hematocrit 35.6 % (37-47) L 08/01/25 05:55 Hematocrit 34.3 % (37-47) L 07/31/25 17:52 Hgb O2 Saturation 84.1 % (95-100) L 07/31/25 17:52 Carboxyhemoglobin 11.9 %THgb (0.4-20.1) 07/31/25 17:52 Methemoglobin 0.8 % (0.4-1.5) 07/31/25 17:52 Total Hemoglobin 11.2 g/dL (12-16) L 07/31/25 17:52 O2 Delivery Device Bipap 08/01/25 05:55 O2 Liters/Min 7.0 % 07/31/25 17:52 Camp Tender ID Bd 08/01/25 05:55 Sodium 138 mmol/L (136-145) 08/02/25 10:04 Potassium 4.1 mmol/L (3.5-5.1) 08/02/25 10:04 Chloride 91 mmol/L (98-107) L 08/02/25 10:04 Carbon Dioxide 35 mmol/L (22-29) H 08/02/25 10:04 Anion Gap 16.1 (5-19) 08/02/25 10:04 BUN 32 mg/dL (8-23) H 08/02/25 10:04 Creatinine 1.0 mg/dL (0.5-0.9) H 08/02/25 10:04 GFR Calculation 55.5 mL/min (90-130) L 08/02/25 10:04 Glucose 191 mg/dL (65-115) H 08/02/25 10:04 Calculated Osmolality 298 mOsm/kg (285-295) H 08/02/25 10:04 Calcium 8.6 mg/dL (8.5-10.5) 08/02/25 10:04 Phosphorus 4.1 mg/dL (2.5-4.5) 07/31/25 18:03 Magnesium 2.4 mg/dL (1.7-2.3) H 08/02/25 10:04 Total Bilirubin 0.3 mg/dL (0.15-1.2) 08/01/25 05:55 AST 9 U/L (0-32) 08/01/25 05:55 ALT 6 U/L (0-33) 08/01/25 05:55 Alkaline Phosphatase 200 U/L (35-105) H 08/01/25 05:55 NT-Pro-B Natriuret Pep 2067 pg/mL (0-125) H 07/31/25 18:03 Total Protein 6.7 g/dL (6.6-8.7) 08/01/25 05:55 Albumin 3.7 g/dL (3.5-5.2) 08/01/25 05:55 Globulin 3.0 g/dL (1.3-4.6) 08/01/25 05:55 Procalcitonin 0.07 ng/mL (0-0.5) 07/31/25 18:03 TSH 2.81 uIU/mL (0.27-4.20) 07/31/25 18:03 Adenovirus (PCR) Not detected (NOT DETECT) 08/01/25 01:20 C. pneumoniae DNA (PCR) Not detected (NOT DETECT) 08/01/25 01:20 Coronavirus 229E (PCR) Not detected (NOT DETECT) 08/01/25 01:20 Human Metapneumovir PCR Not detected (NOT DETECT) 08/01/25 01:20 Influenza A (H1) PCR Not detected (NOT DETECT) 08/01/25 01:20 Influenza A (PCR) Negative (Negative) 07/31/25 18:47 Influ A (H1/09) PCR Not detected (NOT DETECT) 08/01/25 01:20 Influenza A (H3) PCR Not detected (NOT DETECT) 08/01/25 01:20 Influenza Type A (PCR) Not detected (NOT DETECT) 08/01/25 01:20 Influenza Type B (PCR) Not detected (NOT DETECT) 08/01/25 01:20 M. pneumoniae (PCR) Not detected (NOT DETECT) 08/01/25 01:20 Parainfluenza 1 (PCR) Not detected (NOT DETECT) 08/01/25 01:20 Parainfluenza 2 (PCR) Not detected (NOT DETECT) 08/01/25 01:20 Parainfluenza 3 (PCR) Not detected (NOT DETECT) 08/01/25 01:20 Parainfluenza 4 (PCR) Not detected (NOT DETECT) 08/01/25 01:20 RSV (PCR) Negative (Negative) 07/31/25 18:47 RSV Type A (PCR) Not detected (NOT DETECT) 08/01/25 01:20 RSV Type B (PCR) Not detected (NOT DETECT) 08/01/25 01:20 Entero/Rhino (PCR) Not detected (NOT DETECT) 08/01/25 01:20 SARS-CoV-2 (PCR) Not detected (NOT DETECT) 08/01/25 01:20 Vitals Last Vital Signs Temp 97.7 F 08/02/25 10:00 Pulse 85 08/02/25 12:00 Resp 16 08/02/25 12:00 BP 127/83 08/02/25 12:00 Pulse Ox 93 08/02/25 12:00 O2 Del Method Nasal Cannula 08/02/25 12:00 O2 Flow Rate 4 08/02/25 12:00 FiO2 35 08/02/25 00:00 Discharge Plan Discharge Patient Disposition: Home Condition: Stable Prescriptions: New nicotine 21 mg/24 hr Patch 24 Hour 1 patch transdermal DAILY Qty: 28 0RF metolazone 2.5 mg tablet 2.5 mg PO DAILY Qty: 30 0RF azithromycin 250 mg Tablet 500 mg PO DAILY Qty: 6 0RF furosemide [Lasix] 40 mg tablet 40 mg PO BID Qty: 60 0RF dexamethasone 2 mg tablet 2 mg PO DAILY Qty: 3 0RF alum-mag hydroxide-simeth [Mag-Al Plus] 200-200-20 mg/5 mL Suspension 15 ml PO Q6H PRN (Reason: Indigestion) Qty: 3000 0RF ipratropium-albuterol 0.5 mg-3 mg(2.5 mg base)/3 mL Solution For Nebulization 3 ml inhalation QID Qty: 90 0RF famotidine 20 mg Tablet 20 mg PO BID Qty: 60 0RF Continued tiotropium bromide [Spiriva with HandiHaler] 18 mcg capsule, w/inhalation device 1 cap inhalation DAILY Qty: 60 5RF Rx Instructions: puncture 1 cap using device; one dose = 2 inhalations citalopram 40 mg tablet 40 mg PO DAILY Qty: 90 3RF albuterol sulfate 2.5 mg /3 mL (0.083 %) solution for nebulization 2.5 mg inhalation Q4H PRN (Reason: shortness of breath or wheezing) Qty: 75 0RF ramelteon [Rozerem] 8 mg tablet 8 mg PO .at bedtime Qty: 30 3RF alprazolam 0.5 mg tablet 0.5 mg PO BID PRN (Reason: Anxiety) Qty: 60 2RF Rx Instructions: Do not exceed two tablets a day. prazosin 5 mg capsule See Rx Instructions .ROUTE .COMPLEX Qty: 30 5RF Dose Instruction: TAKE ONE CAPSULE BY MOUTH ONCE DAILY Rx Instructions: TAKE ONE CAPSULE BY MOUTH ONCE DAILY albuterol sulfate [Ventolin HFA] 90 mcg/actuation HFA aerosol inhaler See Rx Instructions .ROUTE .COMPLEX Qty: 18 3RF Dose Instruction: INHALE TWO PUFFS BY MOUTH EVERY 4 HOURS NEEDED SHORTNESS OF BREATH OR WHEEZING Rx Instructions: INHALE TWO PUFFS BY MOUTH EVERY 4 HOURS NEEDED SHORTNESS OF BREATH OR WHEEZING quetiapine 100 mg tablet See Rx Instructions .ROUTE .COMPLEX Qty: 60 5RF Dose Instruction: TAKE TWO TABLETS BY MOUTH ONCE DAILY AT 8pm FOR SLEEP Rx Instructions: TAKE TWO TABLETS BY MOUTH ONCE DAILY AT 8pm FOR SLEEP (DME) Oxygen concentrator See Rx Instructions .Route .MEDSUPPLY Qty: 1 5RF Rx Instructions: Please issue necessary oxygen equipment, tubing, concentrator, any additional needs. Changed acetaminophen [Tylenol Extra Strength] 500 mg Tablet 1,000 mg PO BID PRN (Reason: Fever Or Pain) Qty: 100 0RF potassium chloride [Klor-Con M20] 20 mEq tablet,ER particles/crystals 20 meq PO BID 30 Days Qty: 60 0RF Discontinued hydrochlorothiazide 25 mg tablet 25 mg PO DAILY Qty: 90 3RF furosemide 40 mg tablet See Rx Instructions .ROUTE .COMPLEX Qty: 60 5RF Dose Instruction: TAKE ONE TABLET BY MOUTH ONCE DAILY Rx Instructions: TAKE ONE TABLET BY MOUTH ONCE DAILY Discharge Order = DC NOW: Discharge Order (Routine); Ordered 08/02/25 Ordered By: Brant Pelaez Other Ambulatory Orders: DME: Oxygen (Order) Location: None Selected Ordered By: Brant Pelaez Referrals: Kwaku Arredondo MD [Physician, Pulmonology] - 7-10 days Chad Johnson DO [Primary Care Provider, Family Practice] - 1 week Discharge Diet: Diabetic Patient Instructions: Altered Mental Status (ED), Opioid Safety, Patient Portal & Sheela Instructions Activity Restrictions/Additional Instructions: 1500 calories wt loss diet goal 2 pounds weight loss per week fat weight in addition to water weight loss in upcoming week Use your oxygen only to keep saturations by finger oximeter at 87 to 90% If you use your oxygen to keep your saturations higher than that you will suppress your breathing and come in with carbon dioxide retention and confusion and heart failure. Weigh yourself on arrival at home on your own scale. Your weight today is about 5 pounds in excess of your dry weight and I anticipate that you have 5 more pounds of water weight to lose. Eating 1600 colby a day will furthermore cause you to lose 2 pounds of fat weekly. Try to get some large muscle exercise in such as squats push-ups or sit ups. Starting off it just 10 of each day would be a good start You need to see your primary care physician and Dr. Arredondo to get set up for a sleep study. You have severe CO2 retention consistent with sleep apnea, obesity hypoventilation and COPD lung disease CPAP will help this a lot and BiPAP would be even more effective if it is covered by your insurance. You need to stop smoking now because if you do not your lung disease will get worse to the point that you eventually will have to stop but simply have worsened lung disease by that time Discharge Attestations Time Spent in Discharge Care*: greater than 30 min Time Spent in Smoking Cessation: more than 10 minutes Patient counseled regarding severity of her CO2 retention and progression to intubation as well as risk of vascular disease with smoking and nicotine replacement strategies. Quality Metrics Clinical Quality Measures [ No reported AMI, CVA or VTE this stay] Coding Level of Care Code 89757 Diagnoses Acute respiratory failure with hypoxia and hypercapnia J96.01; J96.02 Essential hypertension I10 Chronic diastolic congestive heart failure I50.32 Heart failure chronicity: chronic Venous stasis dermatitis of both lower extremities I87.2 Altered mental status R41.82 PTSD (post-traumatic stress disorder) F43.10 Tobacco abuse Z72.0 Obesity E66.9 Body mass index: BMI 38.0-38.9 Obesity classification: adult class 2 (BMI 35 - 39.9) Obesity type: due to excess calories Time Spent (min) 50
--- NOTE | 2025-08-02 15:38 | PC.NURSE ---
Patient's story was discontinued along with their IVs. All discharge instructions were given along with their prescription instructions. CHF education was provided to the patient. Patient was stable during discharge.
== END 2025-08-02 14:05 | disposition home or self-care (01) | DRG 189 ==
LOC: ER 19:22 → ICU 20:02
PROVIDERS: Admitting Provider Student in an Organized Health Care Education/Training Program; Emergency Provider Emergency Medicine; PCP Family Medicine; Visit Provider Internal Medicine
DX: J96.22 Acute and chronic respiratory failure with hypercapnia (principal); J44.1 Chronic obstructive pulmonary disease with (acute) exacerbation; I50.32 Chronic diastolic (congestive) heart failure; Z68.41 Body mass index [BMI] 40.0-44.9, adult; J96.21 Acute and chronic respiratory failure with hypoxia; I11.0 Hypertensive heart disease with heart failure; I27.81 Cor pulmonale (chronic); I87.2 Venous insufficiency (chronic) (peripheral); R41.82 Altered mental status, unspecified; F43.10 Post-traumatic stress disorder, unspecified; E66.01 Morbid (severe) obesity due to excess calories; Z91.199 Patient's noncompliance with other medical treatment and regimen due to unspecified reason; F17.210 Nicotine dependence, cigarettes, uncomplicated
CPT/HCPCS: 36415; 36600; 71045; 80048; 80053; 82803; 82805; 83735; 83880; 84100; 84145; 84443; 85025; 87486; 87581; 87633; 87637; 93005; 94640; 94660; 94760; 96365; 96372; 96375; 99291; J0456; J0696; J1644; J1938; J2919; J3490; J7050; J7613; J9999; Q0144

== ENCOUNTER → 2025-08-18 13:03 | Outpatient (BNVA) | payer MEDICARE, SELFPAY | PROVIDERS: PCP Family Medicine; Visit Provider Internal Medicine | DX: J44.9 Chronic obstructive pulmonary disease, unspecified (principal); J96.11 Chronic respiratory failure with hypoxia; Z99.81 Dependence on supplemental oxygen; G47.33 Obstructive sleep apnea (adult) (pediatric); Z72.0 Tobacco use; J43.9 Emphysema, unspecified | CPT/HCPCS: 99204; 99406; Q3014 ==